=== PATIENT | female | born 1980 | race Caucasian/White ===

== ENCOUNTER 2019-09-09 10:53 | Emergency (ER) | payer MEDICARE, SELFPAY ==
[2019-09-09 11:04] VITALS: BP 140/64; PULSE 97; RESP 20; TEMP 36.7; O2SAT 98
--- NOTE | 2019-09-09 11:16 | ED.GENADULT ---
HPI - General Adult General Chief complaint: Upper Respiratory Infection Stated complaint: cough/fever/runny nose/fatigue Time Seen by Provider: 09/09/19 11:22 Source: patient and RN notes reviewed Mode of arrival: ambulatory Limitations: no limitations History of Present Illness HPI narrative: This is a 39 years old female presents to the office for an evaluation of cough for 7 days. Cough is intermittent worse at times. Associated with sinus congestion, drainage, bilateral ear pressure, and fever up to 100.2.Similar symptoms. She normally smoke about 3 cigarettes a day. However since she has been feeling ill she only can do 1 a day.She has been taking ibuprofen and DayQuil for her symptoms. Related Data Allergies Allergy/AdvReac Type Severity Reaction Status Date / Time Penicillins Allergy Unknown Rash Verified 09/09/19 11:08 Review of Systems Review of Systems: Narrative: CONSTITUTIONAL: Reports fever EYES: Denies visual changes ENT: Reports rhinorrhea, congestion, sore throat, otalgia. CARDIOVASCULAR: Denies chest pain, palpitation RESPIRATORY: Denies dyspnea, wheezing. Reports cough GASTROINTESTINAL: Denies abdominal pain, nausea, vomiting, diarrhea. GENITOURINARY: Denies urinary symptoms SKIN: Denies rash MUSCULOSKELETAL: Denies acute back pain NEUROLOGIC: Denies lightheaded PMFSH Past Medical History Medical History Allergies Anxiety Asthma Depression (~05/2019) Encounter for long-term (current) use of other medications Family history of osteoporosis Headache, migraine History of bipolar disorder (~05/2019) Surgical History Surgical History H/O laparoscopy H/O: History of tonsillectomy Family History Family History Mother , motorcycle accident No problems noted. Grandparent , bladder infection No problems noted. Grandparent No problems noted. Grandparent Cerebrovascular accident Social History Social History Smoking packs per day: 0.5 Smoking cigarettes per day: 10.0 Years smoked: 15 Smoking pack-years: 7.50 Smoking status: Current every day smoker Alcohol intake: current Drinks per week: 2 Substance use: unknown Comments At time of signature, I agree with nursing past medical, surgical, social and family history. There is no relevant family history pertinent to the presenting complaint. Exam Narrative: Exam Narrative: GENERAL: This is a well-nourished, well-developed patient, in no apparent distress. EYES: Sclera clear/white. Vision is grossly intact. EARS: External ears normal, auditory canals clear and without drainage, TMs normal without perforation. Hearing grossly intact. NOSE: External nose normal with no obvious nasal discharge, nares without redness, no rhinorrhea. THROAT: Mucous membranes moist, posterior pharynx erythema and edematous with drainage NECK: Neck supple, non-tender without lymphadenopathy, masses or thyromegaly. CARDIOVASCULAR: Regular rate and rhythm without murmurs, gallops, or rubs. RESPIRATORY: Clear to auscultation, Except lower base noted diminished breath sound.Breath sounds equal bilaterally. No wheezes, rales, or rhonchi. GASTROINTESTINAL: Abdomen soft, non-tender, nondistended. Bowel sounds are active. No hepato-splenomegaly, or palpable masses. No guarding. SKIN: warm, intact with no suspicious lesions or rash, good texture and turgor. NEURO: awake, alert, and oriented to person, place and time. There were no obvious focal neurologic abnormalities. Steady gait [place] Coma Scale Eye Opening: Spontaneous 4 [place] Coma Scale Motor: Obeys Commands 6 Kately[place] Coma Scale Verbal: Oriented 5 Course Vital Signs Vital signs: Vital Signs Temperature 98.0
== END 2019-09-09 11:38 | disposition home or self-care (01) ==
PROVIDERS: Emergency Provider Nurse Practitioner; PCP Family Medicine
DX: J06.9 Acute upper respiratory infection, unspecified (principal); F17.210 Nicotine dependence, cigarettes, uncomplicated; J45.909 Unspecified asthma, uncomplicated
CPT/HCPCS: 99213; G0463

== ENCOUNTER 2019-10-10 17:19 | Emergency (ER) | payer MEDICARE, SELFPAY ==
--- NOTE | ~2019-10-10 | XR_ITS ---
EXAMINATION: XR chest 2V EXAM DATE: 10/10/2019 18:09 INDICATION: Shortness of breath. Wheezing bilaterally. TECHNIQUE: Frontal and lateral projections of the chest obtained and reviewed. Comparison is made to prior examination from 05/22/2019. FINDINGS: The lungs are clear. There are no pleural effusions. The cardiomediastinal silhouette is within normal limits. There is no pneumothorax suspected. The bones and soft tissues are unremarkab le. IMPRESSION: No acute cardiopulmonary findings. Reviewed, dictated and finalized at location A.
[2019-10-10 17:30] VITALS: BP 124/57; PULSE 82; RESP 28; TEMP 36.9; O2SAT 98
--- NOTE | 2019-10-10 17:30 | ED.GENADULT ---
HPI - General Adult General Chief complaint: Shortness of Breath/Dyspnea Stated complaint: shortness of breath Time Seen by Provider: 10/10/19 17:30 Source: patient Mode of arrival: ambulatory Limitations: no limitations History of Present Illness HPI narrative: 39-year-old female patient presents to the [facility] with complaints of shortness of breath. Patient states that she saw Dr. Goff about a week ago via telehealth. Patient states that she had been exposed to what she thought somebody had COVID-19 however the patient was never diagnosed. Dr. Goff gave her a Z-Marcel along with oral steroids and an inhaler and told her to self quarantine and to call him if his her symptoms got worse. Patient states that she finished a Z-Marcel last and states that she noticed that her symptoms were starting to get slightly worse on . Patient noticed that she was getting more short of breath just walking to the bathroom. Patient states that she had been using the inhaler that the doctor gave her and has helped at times. Patient states she also does have a history of mitral valve prolapse and a murmur that she has had since she was a child. Patient denies any chest pain at this time. Patient does have history of bipolar depression and states that her anxiety has gotten worse recently. Patient states that she does take trazodone at night to help her sleep and to help her anxiety. Patient denies actually being tested for COVID-19. Patient denies any fevers that she is aware of. Patient states she did have asthma as a kid but has not had any asthma attacks since she has been an adult. Patient states she has had issues with her asthma in the past because she still is a smoker. Related Data Allergies Allergy/AdvReac Type Severity Reaction Status Date / Time Penicillins Allergy Unknown Rash Verified 09/09/19 11:08 Review of Systems Review of Systems: Narrative: CONSTITUTIONAL: Denies fever, chills, or sweats. EYES: Denies visual changes, redness, or discharge. ENT: Denies rhinorrhea, congestion, sore throat, or otalgia. CARDIOVASCULAR: Denies chest pain, palpitations, or edema. RESPIRATORY: Positive cough with dyspnea. GASTROINTESTINAL: Denies abdominal pain, nausea, vomiting, or diarrhea. GENITOURINARY: Denies dysuria or hematuria. SKIN: Denies rash or itching. MUSCULOSKELETAL: Denies back pain, joint pain, or myalgia. NEUROLOGIC: Denies headache, numbness, or weakness. PSYCHIATRIC: Positive anxiety, denies depression. [facility] Past Medical History Medical History Allergies Anxiety Asthma Depression (~05/2019) Encounter for long-term (current) use of other medications Family history of osteoporosis Headache, migraine History of bipolar disorder (~05/2019) Surgical History Surgical History H/O laparoscopy H/O: History of tonsillectomy Family History Family History Mother , motorcycle accident No problems noted. Grandparent , bladder infection No problems noted. Grandparent No problems noted. Grandparent Cerebrovascular accident Social History Social History Smoking packs per day: 0.5 Smoking cigarettes per day: 10.0 Years smoked: 15 Smoking pack-years: 7.50 Smoking status: Current every day smoker Alcohol intake: current Drinks per week: 2 Substance use: unknown Comments At the time of my signature I agree with nursing past medical history, surgical, social, and family history. There is no relevant family history pertinent to the presenting complaint. Exam Narrative: Exam Narrative: GENERAL: Well-appearing, well-nourished, patient does appear to be slightly anxious and is talking fast with some rapid deb
--- NOTE | 2019-10-10 17:44 | ECG_ITS ---
Measurements Intervals [place] Rate: 73 P: 61 MA: 152 QRS: 34 QRSD: 99 T: 50 QT: 363 QTc: 400 Interpretive Statements SINUS RHYTHM RSR' IN V1 OR V2, CONSIDER RIGHT VENTRICULAR HYPERTROPHY OR RIGHT VCD BASELINE ARTIFACT- II, III, AVL, AVF BORDERLINE ECG Electronically Signed On 10-11-2019 7:13:27 CDT by Igor Millard D.O.
== END 2019-10-10 18:30 | disposition home or self-care (01) ==
PROVIDERS: Emergency Provider Nurse Practitioner Family; PCP Family Medicine
DX: J20.8 Acute bronchitis due to other specified organisms (principal); F41.9 Anxiety disorder, unspecified; J45.21 Mild intermittent asthma with (acute) exacerbation; I45.10 Unspecified right bundle-branch block; F17.210 Nicotine dependence, cigarettes, uncomplicated; F32.9 Major depressive disorder, single episode, unspecified
CPT/HCPCS: 71046; 87081; 87804; 87880; 93005; 99213; G0463

== ENCOUNTER 2020-01-02 09:34 | Emergency (ER) | payer MEDICARE, SELFPAY ==
--- NOTE | 2020-01-02 09:39 | ED.GENADULT ---
HPI - General Adult General Chief complaint: Dental/Oral Stated complaint: tooth pain/dizzy/nausea/diarrhea Time Seen by Provider: 01/02/20 09:55 Source: patient Mode of arrival: ambulatory Limitations: no limitations History of Present Illness HPI narrative: 39-year-old female patient presents to the [facility] with complaints of dental pain for the past 3 days. Patient states the pain is mostly on the right lower oral cavity. Patient does have history of several dental cavities and infections before in the past. Denies any fevers, denies any chest pain or shortness of breath at this time. Related Data Home Medications Medication Instructions Recorded Confirmed trazodone 100 mg PO BID 01/02/20 01/02/20 Allergies Allergy/AdvReac Type Severity Reaction Status Date / Time Penicillins Allergy Unknown Fever Verified 01/02/20 09:57 Review of Systems Review of Systems: Narrative: CONSTITUTIONAL: Denies fever, chills, or sweats. EYES: Denies visual changes, redness, or discharge. ENT: Denies rhinorrhea, congestion, sore throat, or otalgia. Positive right lower dental pain x3 days CARDIOVASCULAR: Denies chest pain, palpitations, or edema. RESPIRATORY: Denies cough or dyspnea. GASTROINTESTINAL: Denies abdominal pain, nausea, vomiting, or diarrhea. GENITOURINARY: Denies dysuria or hematuria. SKIN: Denies rash or itching. MUSCULOSKELETAL: Denies back pain, joint pain, or myalgia. NEUROLOGIC: Denies headache, numbness, or weakness. PSYCHIATRIC: Denies anxiety or depression. PMFSH Social History Social History Smoking packs per day: 0.5 Smoking cigarettes per day: 10.0 Years smoked: 15 Smoking pack-years: 7.50 Smoking status: Current every day smoker Alcohol intake: current Drinks per week: 2 Substance use: unknown Comments At the time of my signature I agree with nursing past medical history, surgical, social, and family history. There is no relevant family history pertinent to the presenting complaint. Exam Narrative: Exam Narrative: GENERAL: Well-appearing, well-nourished, and in no acute distress. HEAD: Normocephalic, atraumatic. EYES: PERRLA and EOMI. ENT: Nares clear, no rhinorrhea or epistaxis. Mucous membranes moist. Patient has a broken tooth to the back right molar with surrounding erythema and slight swelling noted to the inner part of the right cheek. No obvious swelling noted to the outside of the cheek. Patient able tolerate secretions well. NECK: Supple. No lymphadenopathy CHEST: Clear to auscultation. No respiratory distress. HEART: Regular rate and rhythm. No murmur heard. Normal peripheral pulses. ABDOMEN: Soft, nontender, nondistended, normal active bowel sounds. EXTREMITIES: Normal range of motion. No edema. SKIN: Warm, dry, no rash. NEURO: No focal deficits. Alert and oriented x3. Course Vital Signs Vital signs: Vital Signs Temperature 36.9 C 01/02/20 09:42 Pulse Rate 62 01/02/20 09:42 Respiratory Rate 01/02/20 09:42 Blood Pressure 122/73 01/02/20 09:42 Pulse Oximetry 100 01/02/20 09:42 Temperature 36.9 C 01/02/20 09:42 Pulse Rate 62 01/02/20 09:42 Respiratory Rate 01/02/20 09:42 Blood Pressure 122/73 01/02/20 09:42 Pulse Oximetry 100 01/02/20 09:42 Vital signs reviewed. Medical Decision Making Differential Diagnosis Differential Diagnosis: Differential diagnosis: Dental caries, periodontal disease, avulsed tooth, tooth infections, mandibular infection, Eric's angiana, upper tooth infection, dry socket, gingivitis, acute necrotizing ulcerative gingivitis, sialolithiasis. Offered to give patient Toradol shot for her pain since she does appear uncomfortable. Patient is in agreement with this. Discussed with patient that we will have to watch her for about 20 minutes to make sure she does not have a reaction to the Toradol. Discussed with patient we will discharge her home w
[2020-01-02 09:42] VITALS: BP 122/73; PULSE 62; RESP 20; TEMP 36.9; O2SAT 100
[2020-01-02] MEDS: KETOROLAC (*BKC) 60 MG/2 ML VIAL IM (10:06)
== END 2020-01-02 10:30 | disposition home or self-care (01) ==
PROVIDERS: Emergency Provider Nurse Practitioner Family; PCP Family Medicine
DX: K02.9 Dental caries, unspecified (principal); F17.210 Nicotine dependence, cigarettes, uncomplicated; K21.9 Gastro-esophageal reflux disease without esophagitis; F32.9 Major depressive disorder, single episode, unspecified
CPT/HCPCS: 96372; 99213; G0463; J1885

== ENCOUNTER 2020-01-09 17:00 | Emergency (ER) | payer MEDICARE, SELFPAY ==
--- NOTE | ~2020-01-09 | CT_ITS ---
EXAMINATION: CT brain wo con DATE: 01/09/2020 19:37 INDICATION: Headache. Weakness. TECHNIQUE: Computed tomography (CT) of the head was performed without intravenous contrast. The mA wa s adjusted according to patient size. Iterative reconstruction technique was employed. The dose-lengt h product was 605.33 mGy-cm. COMPARISON: None FINDINGS: There is no intracranial hemorrhage, acute infarction, or abnormal intracranial mass lesion . The ventricles are normal in size. The orbits are normal. The paranasal sinuses are clear. The mast oid air cells are normal. IMPRESSION: 1. Normal brain. Reviewed, dictated and finalized at location A. IMPRESSION: 1. Normal brain.
[2020-01-09 17:06] VITALS: BP 138/80; PULSE 76; RESP 20; TEMP 37; O2SAT 100
--- NOTE | 2020-01-09 18:21 | ECG_ITS ---
Measurements Intervals [place] Rate: 53 P: 67 CT: 175 QRS: 34 QRSD: 114 T: 46 QT: 424 QTc: 402 Interpretive Statements SINUS BRADYCARDIA INCOMPLETE RIGHT BUNDLE BRANCH BLOCK BORDERLINE ECG Electronically Signed On 01-09-2020 20:54:58 CDT by Igor Millard D.O.
--- NOTE | 2020-01-09 19:17 | ED.GENADULT ---
HPI - General Adult General Chief complaint: Unspecified Stated complaint: body aches, n/v/d, foster Time Seen by Provider: 01/09/20 18:45 Source: patient History of Present Illness HPI narrative: Patient 39 years old white female, obese, came to the emergency room complaining of nausea, vomiting and diarrhea started 1 week ago. Patient also complaining of dental pain/infection was on amoxicillin without improvement, started on clindamycin today. Currently complaining of general headache, pain in the eyes, face and neck. Patient denies any fever or chills, also denies any abdominal pain, shortness of breath, coughing or chest pain. Patient cannot elaborate on condition, keepS mumbling and holding her face. Related Data Home Medications Medication Instructions Recorded Confirmed levonorgestrel [Mirena] 1 device INTRAUTERINE ONCE 01/02/20 01/08/20 trazodone 100 mg PO BID 01/02/20 01/08/20 Allergies Allergy/AdvReac Type Severity Reaction Status Date / Time Penicillins Allergy Unknown Fever Verified 01/02/20 09:57 Review of Systems Review of Systems: Narrative: CONSTITUTIONAL: Denies fever, chills, or sweats. EYES: Denies visual changes, redness, or discharge. ENT: Denies rhinorrhea, congestion, sore throat, or otalgia. CARDIOVASCULAR: Denies chest pain, palpitations, or edema. RESPIRATORY: Denies cough or dyspnea. GASTROINTESTINAL: No abdominal pain, complains of nausea, vomiting and diarrhea GENITOURINARY: Denies dysuria or hematuria. SKIN: Denies rash or itching. MUSCULOSKELETAL: Denies back pain, joint pain, or myalgia. NEUROLOGIC: Denies headache, numbness, or weakness. PSYCHIATRIC: Denies anxiety or depression. [facility] Past Medical History Medical History Allergies Anxiety Asthma Depression (~05/2019) Encounter for long-term (current) use of other medications Family history of osteoporosis Headache, migraine History of bipolar disorder (~05/2019) Surgical History Surgical History H/O laparoscopy H/O: History of tonsillectomy Family History Family History Mother , motorcycle accident No problems noted. Grandparent , bladder infection No problems noted. Grandparent No problems noted. Grandparent Cerebrovascular accident Social History Social History Smoking packs per day: 0.5 Smoking cigarettes per day: 10.0 Years smoked: 15 Smoking pack-years: 7.50 Smoking status: Current every day smoker Alcohol intake: current Drinks per week: 2 Substance use: unknown Exam Narrative: Exam Narrative: General appearance: Well-developed, well-nourished Skin: Normal color Head: Normocephalic, nontraumatic Eyes: Clear conjunctiva ENT: Oropharynx normal, ears normal, nose normal, widespread dental caries, no abscess, no discharge, no swelling of the face or the gums Neck: Supple, nontender Chest and respiratory: Airway patent, no respiratory distress, no accessory muscle use Heart: Regular rate/rhythm Abdomen: Soft, nontender, no organomegaly, quiet bowel sounds Vascular: Normal peripheral pulses, normal capillary refill. Musculoskeletal: Normal range of motion, nontender back Neurologic: Alert and oriented ?3, [employer] is normal as tested, no gross motor deficit Course Course Emergency Course: Improving Consultations Consultation #1: Patient feeling much better, denying any symptoms, ready to go home. She told me she is scheduled to see a dentist after
[2020-01-09] MEDS: SODIUM CHLORIDE 0.9% IV 1,000 ML 999 ML IV CONT (19:27)
[2020-01-09] MEDS: KETOROLAC 30 MG/ML VIAL (*BKC) IV PUSH (19:27)
--- NOTE | 2020-01-09 19:39 | PC.NURSE ---
pt to imaging via stretcher at this time.
[2020-01-09 19:54] LABS: Basophils Percent Auto 0.3 % (0.2-1.2); Eosinophils Absolute Auto 0.2 K/mm3 (0-0.3); Eosinophils Percent Auto 1.5 % (0-4.4); Hematocrit 40.5 % (37.0-47.0); Hemoglobin 13.6 g/dL (12.0-15.0); Immature Granulocyte Absolute 0.04 K/mm3 (0.00-0.031); Immature Granulocyte Percent A 0.4 % (0-0.5); Lymphocytes Absolute Auto 2.87 K/mm3 (0.9-3.2); Mean Corpuscular HGB Conc 33.6 g/dl (32-36); Mean Corpuscular Hemoglobin 28.1 pg (26-34); Mean Corpuscular Volume 83.7 fl (80-100); Mean Platelet Volume 9.3 fl (7.4-10.4); Monocytes Absolute Auto 0.6 K/mm3 (0.1-0.6); Monocytes Percent Auto 5.4 % (2.6-8.5); Neutrophils Absolute Auto 7.3 K/mm3 (1.3-6.7); Neutrophils Percent Auto 66.4 % (45.5-73.1); Platelet Count Result 193 k/mm3 (150-375); Red Blood Count 4.84 M/mm3 (4.2-5.4); Red Cell Distribution Width 12.7 % (11.5-14.5)
[2020-01-09 20:04] LABS: Alanine Aminotransferase 13 U/L (4-35); Albumin Level 4.2 g/dL (3.5-5.1); Alkaline Phosphatase 55 U/L (38-126); Aspartate Amino Transferase 17 U/L (14-36); Bilirubin,Total 0.3 mg/dL (0.2-1.3); Blood Urea Nitrogen 20 mg/dL (7-17); Calcium 9.1 mg/dL (8.4-10.2); Carbon Dioxide 26 mmol/L (22-30); Chloride 105 mmol/L (98-107); Estimated CRCL calculation 114 ml/min; Estimated Glomerular Filt Rate > 60; Glucose 91 mg/dL (65-105); Lipase 52 U/L (23-300); Sodium 137 mmol/L (137-145)
[2020-01-09 20:09] VITALS: BP 114/59; PULSE 53; RESP 18; O2SAT 100
[2020-01-09 20:30] LABS: Add Urine Microscopic? NO; Appearance Urine Clear (Clear); Bilirubin Urine Negative (Negative); Blood Urine Negative (Negative); Color Urine Yellow (Yellow); Glucose Urine UA Negative (Negative); Ketones Urine Negative (Negative); Leukocyte Esterase Ur Negative LEU/UL (Negative); Nitrate Urine Negative (Negative); Protein Urine Negative (Negative); Specific Grav Ur 1.027 (1.001-1.035); Urobilinogen Urine Negative mg/dL (<2.0)
[2020-01-09 20:48] LABS: Amphetamine Screen Urine Negative (Negative); Barbiturate Screen Urine Negative (Negative); Benzodiazepines Screen Urine Negative (Negative); Cannabinoid Screen Urine Negative (Negative); Cocaine Screen Urine Negative (Negative); Methadone Screen Urine Negative (Negative); Opiate Screen Urine Negative (Negative); Phencyclidine Screen Urine Negative (Negative)
[2020-01-09 21:18] VITALS: BP 132/77; PULSE 80; RESP 18; O2SAT 100
== END 2020-01-09 21:19 | disposition home or self-care (01) ==
PROVIDERS: Emergency Provider Emergency Medicine; PCP Family Medicine
DX: F41.9 Anxiety disorder, unspecified (principal); K52.9 Noninfective gastroenteritis and colitis, unspecified; K08.9 Disorder of teeth and supporting structures, unspecified; F17.210 Nicotine dependence, cigarettes, uncomplicated; F32.9 Major depressive disorder, single episode, unspecified
CPT/HCPCS: 36415; 70450; 80053; 80307; 81003; 81025; 83690; 85025; 93005; 96361; 96374; 99284; J1885; J7030

== ENCOUNTER → 2020-02-29 15:07 | Outpatient (CLI) | payer MEDICARE, SELFPAY ==
--- NOTE | ~2020-02-29 | XR_ITS ---
EXAMINATION: XR lumbar spine 6V w bending DATE: 02/29/2020 16:16 INDICATION: Unspecified fall, initial encounter. TECHNIQUE: 7 views of lumbar spine including flexion and extension views were obtained. COMPARISON: None. FINDINGS: Bone alignment is normal. The spine is hypomobile with flexion and extension. Vertebral bod y heights and intervertebral disc heights are normal. There are endplate osteophytes at multiple leve ls. There is multilevel facet joint osteoarthritis, severe on the right at L4-L5. There is an intraut erine device in expected position. IMPRESSION: 1. Mild lumbar spondylosis. Reviewed, dictated and finalized at location A. IMPRESSION: 1. Mild lumbar spondylosis.
--- NOTE | ~2020-02-29 | XR_ITS ---
EXAMINATION: XR sacrum coccyx min 2V DATE: 02/29/2020 16:18 INDICATION: Unspecified fall, initial encounter. TECHNIQUE: 3 views of the sacrum and coccyx were obtained. COMPARISON: None. FINDINGS: Bone alignment is normal. No fracture. The sacroiliac joints are normal. There is an intrau terine device in expected position. IMPRESSION: 1. No fracture. Reviewed, dictated and finalized at location A. IMPRESSION: 1. No fracture.
--- NOTE | ~2020-02-29 | XR_ITS ---
EXAMINATION: XR hip RT 1V w AP pelvis DATE: 02/29/2020 16:17 INDICATION: Unspecified fall, initial encounter. TECHNIQUE: An anteroposterior view of the pelvis and 2 views of right hip were obtained. COMPARISON: None. FINDINGS: Bone alignment is normal. No fracture. There is mild osteoarthritis of the hips. There is a n intrauterine device in expected position. IMPRESSION: 1. Mild osteoarthritis of the hips. Reviewed, dictated and finalized at location A.
== END ==
PROVIDERS: PCP Family Medicine; Visit Provider Family Medicine
DX: S33.5XXA Sprain of ligaments of lumbar spine, initial encounter (principal); X58.XXXA Exposure to other specified factors, initial encounter; M47.896 Other spondylosis, lumbar region; M16.0 Bilateral primary osteoarthritis of hip
CPT/HCPCS: 72114; 72220; 73501

== ENCOUNTER 2020-11-25 17:51 | Emergency (ER) | payer MEDICARE, SELFPAY ==
[2020-11-25 18:18] VITALS: BP 140/66; PULSE 99; RESP 20; TEMP 37.1; O2SAT 100
[2020-11-25 18:38] LABS: Basophils Percent Auto 0.2 % (0.2-1.2); Eosinophils Absolute Auto 0.1 K/mm3 (0-0.3); Eosinophils Percent Auto 0.4 % (0-4.4); Hematocrit 41.1 % (37.0-47.0); Hemoglobin 13.8 g/dL (12.0-15.0); Immature Granulocyte Absolute 0.11 K/mm3 (0.00-0.031); Immature Granulocyte Percent A 0.5 % (0-0.5); Lymphocytes Absolute Auto 1.51 K/mm3 (0.9-3.2); Lymphocytes Percent Auto 6.9 % (18.3-44.2); Mean Corpuscular HGB Conc 33.6 g/dl (32-36); Mean Corpuscular Hemoglobin 27.9 pg (26-34); Mean Corpuscular Volume 83.2 fl (80-100); Mean Platelet Volume 9.3 fl (7.4-10.4); Monocytes Absolute Auto 1.6 K/mm3 (0.1-0.6); Monocytes Percent Auto 7.1 % (2.6-8.5); Neutrophils Absolute Auto 18.7 K/mm3 (1.3-6.7); Neutrophils Percent Auto 84.9 % (45.5-73.1); Platelet Count Result 198 k/mm3 (150-375); Red Blood Count 4.94 M/mm3 (4.2-5.4); Red Cell Distribution Width 13.8 % (11.5-14.5)
[2020-11-25 18:48] LABS: Alanine Aminotransferase 13 U/L (4-35); Albumin Level 4.6 g/dL (3.5-5.1); Alkaline Phosphatase 72 U/L (38-126); Anion Gap 11 mmol/L (8-16); Aspartate Amino Transferase 17 U/L (14-36); Blood Urea Nitrogen 13 mg/dL (7-17); Calcium 9.9 mg/dL (8.4-10.2); Carbon Dioxide 24 mmol/L (22-30); Chloride 105 mmol/L (98-107); Estimated CRCL calculation 95 ml/min; Estimated Glomerular Filt Rate > 60; Glucose 120 mg/dL (65-105); Lipase 17 U/L (23-300); Potassium 3.8 mmol/L (3.4-5.0); Sodium 140 mmol/L (137-145)
[2020-11-25 19:08] LABS: Add Urine Microscopic? YES; Appearance Urine Cloudy (Clear); Bacteria Urine Trace /hpf; Bilirubin Urine Negative (Negative); Color Urine Amber (Yellow); Glucose Urine UA Negative (Negative); Ketones Urine 2+ mg/dL (Negative); Leukocyte Esterase Ur Negative LEU/UL (Negative); Mucus Urine Heavy /lpf; Nitrate Urine Negative (Negative); Protein Urine 3+ mg/dL (Negative); Squamous Epithelial Cell Urine Many /hpf (Few)
[2020-11-25 19:10] LABS: Blood Urine Negative (Negative); Specific Grav Ur 1.035 (1.001-1.035)
--- NOTE | 2020-11-25 19:58 | PC.NURSE ---
Pt comes to registration and reports You can take me off the list, I'm calling my ride . Pt left without being seen by physician. Triage and blood work obtained.
== END 2020-11-25 21:38 | disposition left against medical advice (07) ==
PROVIDERS: Emergency Provider Emergency Medicine; PCP Family Medicine
DX: H92.03 Otalgia, bilateral (principal)
CPT/HCPCS: 36415; 80053; 81001; 83690; 85025; 87086; 87088; 99199

== ENCOUNTER 2020-12-27 08:41 | Emergency (ER) | payer MEDICARE, OTHER, SELFPAY ==
--- NOTE | ~2020-12-27 | XR_ITS ---
EXAMINATION: XR chest 2V DATE: 12/27/2020 09:15 INDICATION: Shortness of breath and cough. TECHNIQUE: Frontal and lateral views of the chest were obtained. COMPARISON: Chest 2 views 10/10/2019 FINDINGS: The chest demonstrates clear lungs without pneumonia, pleural effusion, or pneumothorax. Th e heart size is normal. IMPRESSION: 1. No acute cardiopulmonary disease. Reviewed, dictated and finalized at location A.
[2020-12-27 08:56] VITALS: BP 137/60; PULSE 73; RESP 16; TEMP 37.1; O2SAT 100
--- NOTE | 2020-12-27 09:16 | ED.URI ---
HPI - URI/Sore Throat General Chief Complaint: Upper Respiratory Infection Stated Complaint: Shortness of breath, congestion, headache Time Seen by Provider: 12/27/20 09:05 Source: patient Mode of arrival: ambulatory Limitations: no limitations History of Present Illness HPI Narrative: Chacha Jean Baptiste is a 40 yo female with a PMH of asthma, bipolar, anxiery, migraine, who [facility] with complaints of cough and sore throat and sinus drainage and developing and Wednesday, cough on Wednesday, shortness of breath started last night. States prescribed inhaler did not help. Related Data Home Medications Medication Instructions Recorded Confirmed levonorgestrel [Mirena] 1 device INTRAUTERINE ONCE 01/02/20 12/27/20 Allergies Allergy/AdvReac Type Severity Reaction Status Date / Time Penicillins Allergy Unknown Fever Verified 12/27/20 08:57 Review of Systems Review of Systems: Narrative: CONSTITUTIONAL: Denies fever, chills, sweats. EYES: Denies visual changes, redness, discharge. ENT: Has rhinorrhea, has congestion, has sore throat, otalgia. CARDIOVASCULAR: Denies chest pain, palpitations, edema. RESPIRATORY: Denies dyspnea, wheezing, has cough GASTROINTESTINAL: Denies abdominal pain, nausea, vomiting, diarrhea. GENITOURINARY: Denies dysuria, hematuria, abnormal discharge SKIN: Denies rash or itching. NEUROLOGIC: Denies numbness, or focal weakness. PSYCHIATRIC: Denies anxiety or depression. [facility] Past Medical History Medical History (Updated 12/27/20 @ 09:33 by Casi Waller CNP) Allergies Anxiety Asthma Depression (~05/2019) Encounter for long-term (current) use of other medications Family history of osteoporosis GERD (gastroesophageal reflux disease) Headache, migraine History of bipolar disorder (~05/2019) Surgical History Surgical History H/O laparoscopy H/O: History of tonsillectomy Family History Family History Mother , motorcycle accident No problems noted. Grandparent , bladder infection No problems noted. Grandparent No problems noted. Grandparent Cerebrovascular accident Social History Social History Smoking packs per day: 0.5 Smoking cigarettes per day: 10.0 Years smoked: 15 Smoking pack-years: 7.50 Smoking status: Current every day smoker Alcohol intake: current Drinks per week: 2 Substance use: unknown Gender identity (if verbalized by the patient): Female Comments At time of signature, I agree with nursing past medical, surgical, social and family history. There is no relevant family history pertinent to the presenting complaint. Exam Narrative: Exam Narrative: GENERAL: This is a well-nourished, well-developed patient, in mild distress. HEAD: normocephalic, atraumatic. EYES: Sclera clear/white. Vision is grossly intact. EARS: External ears normal, auditory canals erythema with fluid behind TM, . Hearing grossly intact. NOSE: External nose normal without nasal discharge, nares without redness, no rhinorrhea. THROAT: Mucous membranes moist, posterior pharynx erythema with no exudate NECK: Neck supple, CARDIOVASCULAR: Regular rate and rhythm without murmurs, gallops, or rubs. RESPIRATORY: Clear to auscultation. Breath sounds equal bilaterally. No wheezes, rales, or rhonchi. GASTROINTESTINAL: Abdomen soft, SKIN: warm, intact with no suspicious lesions or rash, good texture and turgor. NEURO: awake, alert, and oriented to person, place and time. There were no obvious focal neurologic abnormalities. Steady gait EXTREMITIES: Normal range of motion. BACK: Nontender without deformity Course Course Emergency Course: Patient here with shortness of breath cough and sore throat that is evolved since last Wednesday Strep test n
== END 2020-12-27 09:48 | disposition home or self-care (01) ==
PROVIDERS: Emergency Provider Nurse Practitioner; PCP Family Medicine
DX: R06.02 Shortness of breath (principal); J45.20 Mild intermittent asthma, uncomplicated; J06.9 Acute upper respiratory infection, unspecified; F17.210 Nicotine dependence, cigarettes, uncomplicated; F32.9 Major depressive disorder, single episode, unspecified; K21.9 Gastro-esophageal reflux disease without esophagitis
CPT/HCPCS: 71046; 87081; 87147; 87880; 99213; G0463

== ENCOUNTER 2021-02-02 08:52 | Emergency (ER) | payer MEDICARE, OTHER, SELFPAY ==
--- NOTE | 2021-02-02 08:54 | ED.URI ---
HPI - URI/Sore Throat General Stated Complaint: headache cough sneezing loss of appetite Time Seen by Provider: 02/02/21 08:54 Source: patient and RN notes reviewed History of Present Illness HPI Narrative: Patient is a 40-year-old female who presents the urgent care with complaints of loss of appetite, headache, cough, sneezing, wheezing and scratchy throat. Patient states she does have a history of asthma has continued to smoke cigarettes. Patient states her symptoms started 4 days ago and her children are also sick. No one in the home is been tested for Covid and no one in the home has been vaccinated. Patient denies of any fevers, vomiting, diarrhea. States that she has been taking DayQuil, Tylenol and ibuprofen. No other acute complaints. No acute distress noted. Patient aware of the plan of care. Some parts of this dictation were generated by voice recognition software and may contain typographical and/or grammatical inaccuracies. Related Data Home Medications Medication Instructions Recorded Confirmed levonorgestrel [Mirena] 1 device INTRAUTERINE ONCE 01/02/20 02/02/21 Allergies Allergy/AdvReac Type Severity Reaction Status Date / Time Penicillins AdvReac Unknown Fever Verified 02/02/21 09:08 Review of Systems Review of Systems: CONSTITUTIONAL: Denies fever, chills, or sweats. EYES: Denies visual changes, redness, or discharge. ENT: Denies rhinorrhea, congestion. Reports of scratchy throat CARDIOVASCULAR: Denies chest pain, palpitations, or edema. RESPIRATORY: Reports of nonproductive cough with intermittent wheezing GASTROINTESTINAL: Reports of intermittent nausea without abdominal pain vomiting or diarrhea. Reports of slight loss in appetite GENITOURINARY: Denies dysuria or hematuria. SKIN: Denies rash or itching. MUSCULOSKELETAL: Denies back pain, joint pain, or myalgia. NEUROLOGIC: Reports of headache All other systems reviewed are negative, except as documented in HPI. [facility] Past Medical History Medical History (Updated 02/02/21 @ 09:07 by FANTASMA Marley) Allergies Anxiety Asthma Depression (~05/2019) Encounter for long-term (current) use of other medications Family history of osteoporosis GERD (gastroesophageal reflux disease) Headache, migraine History of bipolar disorder (~05/2019) Surgical History Surgical History H/O laparoscopy H/O: History of tonsillectomy Family History Family History Mother , motorcycle accident No problems noted. Grandparent , bladder infection No problems noted. Grandparent No problems noted. Grandparent Cerebrovascular accident Social History Social History Smoking packs per day: 0.5 Smoking cigarettes per day: 10.0 Years smoked: 15 Smoking pack-years: 7.50 Smoking status: Current every day smoker Alcohol intake: current Drinks per week: 2 Substance use: unknown Gender identity (if verbalized by the patient): Female Comments At the time of my signature, I reviewed and agree with the nursing past medical, surgical, social, and family history. There is no relevant family history pertinent to the patient complaint. Exam Narrative: GENERAL: This is a well-nourished, well-developed patient, appears fatigued HEAD: normocephalic, atraumatic. EYES: PERRL. Sclera clear/white. Vision is grossly intact. EARS: External ears normal, auditory canals clear and without drainage, TMs normal without perforation. Hearing grossly intact. NOSE: External nose normal with no obvious nasal discharge, nares without redness, no rhinorrhea. THROAT: Mucous membranes moist, posterior pharynx clear. Mild postnasal drainage NECK: Neck supple, non-tender without lymphadenopathy CARDIOVASCULAR: Regular rate and rhythm without
[2021-02-02 09:01] VITALS: BP 139/81; PULSE 81; RESP 20; TEMP 36.9; O2SAT 100
[2021-02-03 17:31] LABS: SARS-CoV-2 RNA PCR Negative
== END 2021-02-02 09:13 | disposition home or self-care (01) ==
PROVIDERS: Emergency Provider Nurse Practitioner Family; PCP Family Medicine
DX: J06.9 Acute upper respiratory infection, unspecified (principal); Z20.822 Contact with and (suspected) exposure to COVID-19; J45.909 Unspecified asthma, uncomplicated; K21.9 Gastro-esophageal reflux disease without esophagitis
CPT/HCPCS: 87426; 99213; C9803; G0463; U0003; U0005

== ENCOUNTER 2021-04-18 10:45 | Emergency (ER) | payer MEDICARE, SELFPAY ==
--- NOTE | ~2021-04-18 | XR_ITS ---
EXAMINATION: XR chest 2V DATE: 04/18/2021 11:32 INDICATION: Left chest pain. TECHNIQUE: Frontal and lateral views of the chest were obtained. COMPARISON: Chest 2 views 12/27/2020 FINDINGS: The chest demonstrates clear lungs without pneumonia, pleural effusion, or pneumothorax. Th e heart size is normal. IMPRESSION: 1. No acute cardiopulmonary disease. Reviewed, dictated and finalized at location A.
[2021-04-18 10:45] VITALS: BP 145/59; PULSE 83; RESP 22; TEMP 36.3; O2SAT 100
--- NOTE | 2021-04-18 10:58 | ECG_ITS ---
Measurements Intervals [place] Rate: 79 P: 70 NE: 158 QRS: 48 QRSD: 105 T: 51 QT: 407 QTc: 467 Interpretive Statements SINUS RHYTHM INCOMPLETE RIGHT BUNDLE BRANCH BLOCK BASELINE ARTIFACT- I, II, III, AVR, AVL, AVF BORDERLINE ECG Electronically Signed On 04-19-2021 8:42:03 CDT by Igor Millard D.O.
--- NOTE | 2021-04-18 11:00 | ED.CHESTPAIN ---
HPI - Chest Pain General Chief Complaint: Chest Pain Stated Complaint: Chest Pain Time Seen by Provider: 04/18/21 11:02 Source: patient and RN notes reviewed Mode of arrival: ambulatory Limitations: no limitations History of Present Illness HPI narrative: 40-year-old female presents with concern for midsternal chest pain that starts in between her shoulder blades and radiates to the chest. She reports feeling short of breath. She reports smoking 3 cigarettes this morning. She reports she recently had an upper respiratory infection for which she took antibiotics and was coughing a lot, reports the cough has improved. She reports pain is worsened when she touches her chest and does certain movements. She denies any relieving factors. She denies recent fevers, body aches, chills, sweats. Denies any rash, redness, bruising. Denies palpitations. MD complaint: chest pain Related Data Home Medications Medication Instructions Recorded Confirmed levonorgestrel [Mirena] 1 device INTRAUTERINE ONCE 01/02/20 04/18/21 fluticasone propion-salmeterol 2 inh INHALATION BID 04/18/21 04/18/21 [Advair HFA] Allergies Allergy/AdvReac Type Severity Reaction Status Date / Time Penicillins AdvReac Unknown Fever Verified 04/18/21 11:00 Review of Systems Review of Systems: CONSTITUTIONAL: Denies malaise, chills, sweats, or fever. EYES: Denies visual changes, redness, or discharge. ENT: Denies rhinorrhea, congestion, sinus pain, otalgia or sore throat. CARDIOVASCULAR: Reports chest pain. Denies palpitations or edema. RESPIRATORY: Denies cough. Reports dyspnea. GASTROINTESTINAL: Denies abdominal pain, nausea, vomiting, diarrhea, bloody, or mucous stools. SKIN: Denies bruising, redness, rash or itching. MUSCULOSKELETAL: Reports back pain between the shoulder blades. Denies joint pain or myalgia. NEUROLOGIC: Denies numbness, weakness, or headache. PSYCHIATRIC: Reports anxiety All systems reviewed & are unremarkable except as noted in HPI and below PMFSH Past Medical History Medical History (Updated 04/18/21 @ 11:45 by Lisseth Easton NP) Allergies Anxiety Asthma Depression (~05/2019) Encounter for long-term (current) use of other medications Family history of osteoporosis GERD (gastroesophageal reflux disease) Headache, migraine History of bipolar disorder (~05/2019) Surgical History Surgical History H/O laparoscopy H/O: History of tonsillectomy Family History Family History Mother , motorcycle accident No problems noted. Grandparent , bladder infection No problems noted. Grandparent No problems noted. Grandparent Cerebrovascular accident Social History Social History Smoking packs per day: 0.5 Smoking cigarettes per day: 10.0 Years smoked: 15 Smoking pack-years: 7.50 Smoking status: Current every day smoker Alcohol intake: current Drinks per week: 2 Substance use: unknown Gender identity (if verbalized by the patient): Female Comments At time of signature, agree with nursing past medical, surgical, social and family history. There is no relevant family history pertinent to the presenting complaint Exam Narrative: GENERAL: Well-appearing, well-nourished, and in no acute distress. HEAD: Normocephalic, atraumatic. EYES: PERRLA, sclera clear, and EOMI. ENT: Nares clear. Mucous membranes moist. NECK: Supple. No lymphadenopathy. CHEST: No respiratory distress. Clear to auscultation. No bony deformities, no asymmetry. Speaks in full sentences. Reproducible chest pain with sternal rub HEART: Regular rate and rhythm. No murmur heard. Normal peripheral pulses. SKIN: Warm, dry, no visible rash. NEURO: Alert and oriented x3. PSYCH: Appears anxious Course Course Gissel
[2021-04-18] MEDS: MAG HYDROX/AL HYDROX/SIMETH 30 ML UDC PO (11:03)
[2021-04-18] MEDS: KETOROLAC (*BKC) 60 MG/2 ML VIAL IM (11:20)
== END 2021-04-18 11:50 | disposition home or self-care (01) ==
PROVIDERS: Emergency Provider Nurse Practitioner; PCP Family Medicine
DX: R07.9 Chest pain, unspecified (principal); F17.210 Nicotine dependence, cigarettes, uncomplicated; J45.909 Unspecified asthma, uncomplicated; K21.9 Gastro-esophageal reflux disease without esophagitis; F32.A Depression, unspecified
CPT/HCPCS: 71046; 93005; 96372; 99213; A9270; G0463; J1885

== ENCOUNTER 2021-04-24 11:05 | Outpatient (CLI) | payer MEDICARE, SELFPAY ==
[2021-04-24 19:16] LABS: Hematocrit 40.4 % (37.0-47.0); Hemoglobin 12.8 g/dL (12.0-15.0); Mean Corpuscular HGB Conc 31.7 g/dl (32-36); Mean Corpuscular Hemoglobin 28.6 pg (26-34); Mean Corpuscular Volume 90.4 fl (80-100); Mean Platelet Volume 9.6 fl (7.4-10.4); Platelet Count Result 240 k/mm3 (150-375); Red Blood Count 4.47 M/mm3 (4.2-5.4); Red Cell Distribution Width 13.5 % (11.5-14.5); White Blood Count 11.6 K/mm3 (4.5-10.0)
[2021-04-24 22:18] LABS: Alanine Aminotransferase 15 U/L (4-35); Albumin Level 4.4 g/dL (3.5-5.1); Alkaline Phosphatase 59 U/L (38-126); Anion Gap 9 mmol/L (8-16); Aspartate Amino Transferase 16 U/L (14-36); Bilirubin,Total 0.5 mg/dL (0.2-1.3); Blood Urea Nitrogen 10 mg/dL (7-17); Calcium 9.7 mg/dL (8.4-10.2); Carbon Dioxide 23 mmol/L (22-30); Chloride 105 mmol/L (98-107); Estimated Glomerular Filt Rate > 60; Glucose 96 mg/dL (65-110); Potassium 4.3 mmol/L (3.4-5.0); Sodium 137 mmol/L (137-145)
[2021-04-24 23:04] LABS: Hemoglobin A1C 5.2 % (<5.7)
== END 2021-04-24 11:06 | disposition home or self-care (01) ==
PROVIDERS: PCP Family Medicine; Visit Provider Family Medicine
DX: J45.909 Unspecified asthma, uncomplicated (principal); M79.12 Myalgia of auxiliary muscles, head and neck; R53.1 Weakness; F31.81 Bipolar II disorder; Z79.899 Other long term (current) drug therapy
CPT/HCPCS: 36415; 80053; 82607; 83036; 84443; 85027

== ENCOUNTER 2021-06-17 07:52 | Outpatient (CLI) | payer MEDICARE, OTHER, SELFPAY ==
--- NOTE | 2021-07-07 16:48 | WPDSLEEPSTUD ---
Sleep Study Date of Study: 06/17/21 <Lyndsey Brody DO - Last Filed: 07/08/21 12:49> Ordering Provider: Pravin Lucas MD <Lyndsey Brody DO - Last Filed: 07/08/21 12:49> Interpreting Physician: Lyndsey Brody DO <Lyndsey Brody DO - Last Filed: 07/08/21 12:49> Sleep Study Type: Polysomnogram <Lyndsey Brody DO - Last Filed: 07/08/21 12:49> Height: 1.6 m <Lyndsey Brody DO - Last Filed: 07/08/21 12:49> Weight: 117.934 kg <Lyndsey Brody DO - Last Filed: 07/08/21 12:49> Body Mass Index: 46.0 <Lyndsey Brody DO - Last Filed: 07/08/21 12:49> Neck Circumference (inches): 16 <Lyndsey Brody DO - Last Filed: 07/08/21 12:49> [place]: 7 <Lyndsey Brody DO - Last Filed: 07/08/21 12:49> Reason for Sleep Study Unrefreshing sleep and daytime hypersomnia <Lyndsey Brody DO - Last Filed: 07/08/21 12:49> Sleep History The patient is a 41 y/o female that Had a sleep study ordered by her primary care due to difficulty falling asleep and maintaining sleep. The patient states that she had a sleep study in the past and was prescribed CPAP. The patient states that she frequently awakens from sleep short of breath. She frequently awakens at night with heartburn, belching or cough. She occasionally snores and it is rarely lab done of that others complaint. She constantly has trouble sleeping when she has a cold. She frequently wakes up gasping for air throughout the night. She frequently has breathing problems at night observed by others. She occasionally sweats excessively at night. She occasionally notices heart palpitations or irregular heartbeats during the night. She occasionally falls asleep during the day but never while driving. She occasionally experiences loss of muscle tone when extremely emotional. She frequently has trouble at school or work due to sleepiness. She occasionally feels unable to move when waking up or falling asleep. She rarely experiences vivid dream like seen upon awakening or falling asleep. She frequently feels afraid of going to sleep. She rarely has nightmares. She frequently has thoughts racing through her mind. She frequently feels sad, depressed and anxious. She frequently notices parts of her body jerk. She occasionally kicks during the night. She frequently has crawling aching feelings in her legs. She occasionally has leg pain during the night. She rarely brings her teeth during sleep but frequently awakens with morning jawbone pain. She is frequently bothered by pain during the day and frequently awakened by pain during the night. She constantly wakes up feeling stiff in the morning with sore and achy muscles. She constantly wakes up with pain in the neck, spine and other joints. She goes to bed between 8 and 9:30 p.m. on both weekdays and weekends. It takes her 1.5 hours to fall asleep after taking her nighttime medicines. She wakes up 1-2 times throughout the night. When she awakened, she will lay there, go to the restroom and try to go back to sleep. If she cannot fall asleep, she will get up. She wakes up between 5-7 a.m. on the weekdays and between 7-9 a.m. on the weekends. She typically gets between 5 and 9 hours of sleep per night. She will stay in bed anywhere from 30-90 minutes after waking up in the morning. She currently lives with her and 3 children. She does not consume any caffeinated beverages within 2 hours of bedtime. She does not engage in physical exercise before bedtime. She will occasionally read and watch television before falling asleep. She does not take naps in the afternoon or the evening. She currently smokes half a pack of cigarettes per day. She drinks 2 caffeinated beverages per day. She will drink alcohol once per month. She denies recreational drug use. <Lyndsey Brody, - Last Filed: 07/08/21 12:49> [facility] Past Medical Hi
[2021-07-08 12:47] VITALS: BMI 46.0
== END 2021-06-18 07:48 | disposition home or self-care (01) ==
LOC: ANHCSM 07:53
PROVIDERS: PCP Family Medicine; Visit Provider Family Medicine
DX: G47.9 Sleep disorder, unspecified (principal)
CPT/HCPCS: 95810

== ENCOUNTER 2022-01-28 14:44 | Outpatient (CLI) | payer MEDICARE, OTHER, SELFPAY ==
--- NOTE | ~2022-01-28 | XR_ITS ---
EXAMINATION: XR abdomen obstructive series DATE: 01/28/2022 15:14 INDICATION: Gastroesophageal reflux disease without esophagitis. TECHNIQUE: Upright and supine views of the abdomen were obtained. COMPARISON: None. FINDINGS: There are no dilated loops of bowel. There is a small volume of stool in the colon. There i s an intrauterine device in expected position. Portions of the diaphragm are excluded on the upright view. No free intraperitoneal gas. IMPRESSION: 1. Normal bowel gas pattern. Reviewed, dictated and finalized at location A.
--- NOTE | ~2022-01-28 | XR_ITS ---
XR lumbar spine 2-3V DATE: 01/28/2022 15:14 INDICATION: Low back pain, abdominal pain and diarrhea for one month TECHNIQUE: AP, lateral, coned lateral lumbosacral views COMPARISON: 02/29/2020 lumbar spine FINDINGS: Normal alignment of the lumbar spine. No fracture or bone destruction. The lumbar pedicles are intact. There is degenerative change at the apophyseal joints, with slight grade 1 anterolisthesi s at L4-5. Mild degenerative disc disease at L1-2 and L2-3 and L3-4. L4-5 and L5-S1 interspaces are well preserv ed. Normal alignment at the sacroiliac joints. IMPRESSION: Mild degenerative disease at L1-2 through L3-4 Degenerative changes apophyseal joints with minimal anterolisthesis at L4-5 Reviewed, dictated and finalized at location B.
[2022-01-28 20:44] LABS: Appearance Urine Slightly Cloudy (Clear); Bilirubin Urine Negative (Negative); Glucose Urine UA Negative (Negative); Ketones Urine Negative (Negative); Leukocyte Esterase Ur Trace LEU/UL (NEGATIVE); Nitrate Urine Negative (Negative); Protein Urine Negative (Negative); Specific Grav Ur 1.015 (1.001-1.035); Urobilinogen Urine 0.2 mg/dL (<2.0)
[2022-01-28 21:00] LABS: Bacteria Urine 2+ /hpf; Mucus Urine Rare /lpf; RBC Urine 0-2 /hpf (0-2); Squamous Epithelial Cell Urine Many /hpf (Few); WBC Urine 0-3 /hpf (0-3)
[2022-01-28 21:01] LABS: Add Urine Microscopic? YES; Blood Urine Trace-Intact (Negative); Color Urine Light Yellow (Yellow)
[2022-01-28 21:01] LABS: Basophils Absolute Auto 0.1 K/mm3 (0.0-0.1); Basophils Percent Auto 0.5 % (0.2-1.2); Eosinophils Absolute Auto 0.3 K/mm3 (0-0.3); Eosinophils Percent Auto 2.9 % (0-4.4); Hematocrit 41.7 % (37.0-47.0); Hemoglobin 13.8 g/dL (12.0-15.0); Immature Granulocyte Absolute 0.02 K/mm3 (0.00-0.031); Immature Granulocyte Percent A 0.2 % (0-0.5); Lymphocytes Absolute Auto 2.39 K/mm3 (0.9-3.2); Lymphocytes Percent Auto 24.1 % (18.3-44.2); Mean Corpuscular HGB Conc 33.1 g/dl (32-36); Mean Corpuscular Hemoglobin 27.9 pg (26-34); Mean Corpuscular Volume 84.4 fl (80-100); Mean Platelet Volume 9.9 fl (7.4-10.4); Monocytes Absolute Auto 0.6 K/mm3 (0.1-0.6); Monocytes Percent Auto 5.7 % (2.6-8.5); Neutrophils Absolute Auto 6.6 K/mm3 (1.3-6.7); Neutrophils Percent Auto 66.6 % (45.5-73.1); Platelet Count Result 237 k/mm3 (150-375); Red Blood Count 4.94 M/mm3 (4.2-5.4); Red Cell Distribution Width 12.9 % (11.5-14.5); White Blood Count 9.9 K/mm3 (4.5-10.0)
[2022-01-28 21:52] LABS: Lipase 38 U/L (23-300)
== END 2022-01-28 14:45 | disposition home or self-care (01) ==
LOC: ANHBWCLAB 14:47
PROVIDERS: PCP Family Medicine; Visit Provider Family Medicine
DX: R82.998 Other abnormal findings in urine (principal); R51.9 Headache, unspecified; S33.5XXA Sprain of ligaments of lumbar spine, initial encounter; K21.9 Gastro-esophageal reflux disease without esophagitis; R14.0 Abdominal distension (gaseous); X58.XXXA Exposure to other specified factors, initial encounter
CPT/HCPCS: 36415; 72100; 74019; 81001; 83690; 85025

== ENCOUNTER 2022-05-04 13:21 | Outpatient (CLI) | payer MEDICARE, OTHER, SELFPAY ==
[2022-05-04 19:39] LABS: Appearance Urine Clear (Clear); Bilirubin Urine Negative (Negative); Blood Urine Negative (Negative); Color Urine Yellow (Yellow); Glucose Urine UA Negative (Negative); Ketones Urine Negative (Negative); Leukocyte Esterase Ur Negative LEU/UL (Negative); Nitrate Urine Positive (Negative); Protein Urine Negative (Negative); Urobilinogen Urine 0.2 mg/dL (<2.0)
[2022-05-04 19:46] LABS: Bacteria Urine Trace /hpf; RBC Urine 0-2 /hpf (0-2); Squamous Epithelial Cell Urine Moderate /hpf (Few); WBC Urine 0-3 /hpf
[2022-05-04 19:57] LABS: Add Urine Microscopic? YES
== END 2022-05-04 13:22 | disposition home or self-care (01) ==
LOC: ANHBWCLAB 13:22
PROVIDERS: PCP Family Medicine; Visit Provider Family Medicine
DX: R39.9 Unspecified symptoms and signs involving the genitourinary system (principal); N39.0 Urinary tract infection, site not specified
CPT/HCPCS: 81001

== ENCOUNTER 2022-09-10 09:50 | Outpatient (CLI) | payer MEDICARE, SELFPAY ==
[2022-09-10 19:47] LABS: Alanine Aminotransferase 30 U/L (6-35); Albumin Level 4.7 g/dL (3.5-5.1); Alkaline Phosphatase 68 U/L (38-126); Anion Gap 8 mmol/L (8-16); Aspartate Amino Transferase 61 U/L (14-36); Blood Urea Nitrogen 11 mg/dL (7-17); Calcium 9.1 mg/dL (8.4-10.2); Carbon Dioxide 26 mmol/L (22-30); Chloride 105 mmol/L (98-107); Cholesterol 237 mg/dL (0-200); Estimated Glomerular Filt Rate > 60; Glucose 90 mg/dL (65-110); HDL Direct 28 mg/dL; Potassium 3.5 mmol/L (3.4-5.0); Sodium 139 mmol/L (137-145); Triglycerides 251 mg/dL (<150)
[2022-09-10 19:59] LABS: LDL Cholesterol Direct 141 mg/dL
[2022-09-10 20:05] LABS: Appearance Urine Turbid (Clear); Bilirubin Urine 2+ (Negative); Blood Urine Trace-intact (Negative); Color Urine Red (Yellow); Glucose Urine UA 1+ mg/dL (Negative); Ketones Urine 2+ mg/dL (Negative); Leukocyte Esterase Ur 3+ LEU/UL (Negative); Nitrate Urine Positive (Negative); Protein Urine 3+ mg/dL (Negative)
[2022-09-10 20:08] LABS: Urobilinogen Urine >=8.0 mg/dL (<2.0)
[2022-09-10 20:09] LABS: Add Urine Microscopic? YES; WBC Urine 21-50 /hpf (0-3)
[2022-09-10 20:10] LABS: Bacteria Urine 2+ /hpf; Squamous Epithelial Cell Urine Few /hpf (Few)
== END 2022-09-10 09:51 | disposition home or self-care (01) ==
PROVIDERS: PCP Family Medicine; Visit Provider Family Medicine
DX: R31.9 Hematuria, unspecified (principal); F31.81 Bipolar II disorder; F41.9 Anxiety disorder, unspecified; G43.909 Migraine, unspecified, not intractable, without status migrainosus; J45.991 Cough variant asthma; K21.9 Gastro-esophageal reflux disease without esophagitis; M54.50 Low back pain, unspecified; R14.0 Abdominal distension (gaseous); Z79.899 Other long term (current) drug therapy
CPT/HCPCS: 36415; 80053; 80061; 81001

== ENCOUNTER 2022-09-15 11:57 | Outpatient (CLI) | payer MEDICARE, SELFPAY ==
[2022-09-18 00:40] LABS: H pylori Ag Stool Not Detected (Not Detected)
== END 2022-09-15 11:58 | disposition home or self-care (01) ==
PROVIDERS: PCP Family Medicine; Visit Provider Family Medicine
DX: K21.9 Gastro-esophageal reflux disease without esophagitis (principal)
CPT/HCPCS: 87338

== ENCOUNTER 2023-01-12 11:21 | Emergency (ER) | payer OTHER, MEDICARE, SELFPAY ==
--- NOTE | ~2023-01-12 | CT_ITS ---
Non-contrast Head CT History: Headache COMPARISON: 01/09/2020 Technique: Axial non-contrast imaging of the brain was performed. Dose reduction technique was used on this scan by utilizing automated exposure control and iterative reconstruction technique. The dose -length product (DLP) was 605.33 mGy-cm. Findings: There is no evidence of intracranial hemorrhage, mass lesion, or acute infarct. Brain par enchyma appears normal. The ventricles and subarachnoid spaces are normal in size. The calvarium ap pears normal. The visualized paranasal sinuses and mastoid air cells are clear. Impression: No significant abnormality seen. Reviewed, dictated and finalized at [facility]. Impression: No significant abnormality seen.
[2023-01-12 11:29] VITALS: BP 134/78; PULSE 79; RESP 20; TEMP 36.4; O2SAT 100
[2023-01-12] MEDS: diphenhydrAMINE HCl CAP 25 MG CAPSULE PO (12:07)
[2023-01-12] MEDS: METOCLOPRAMIDE HCL INJ 10 MG/2 ML VIAL IM (12:07)
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
[2023-01-12 13:09] VITALS: BP 102/78; PULSE 86; RESP 15; O2SAT 98
== END 2023-01-12 13:09 | disposition home or self-care (01) ==
LOC: ANHED 13:02
PROVIDERS: Emergency Provider Emergency Medicine; PCP Family Medicine
DX: S09.90XA Unspecified injury of head, initial encounter (principal); R51.9 Headache, unspecified; J45.909 Unspecified asthma, uncomplicated; K21.9 Gastro-esophageal reflux disease without esophagitis; F17.210 Nicotine dependence, cigarettes, uncomplicated; V49.40XA Driver injured in collision with unspecified motor vehicles in traffic accident, initial encounter
CPT/HCPCS: 70450; 96372; 99284; A9270; J2765

== ENCOUNTER 2023-04-13 13:09 | Outpatient (CLI) | payer MEDICARE, MEDICAID, SELFPAY ==
--- NOTE | ~2023-04-13 | XR_ITS ---
EXAMINATION: XR mandible min 4V DATE: 04/13/2023 13:36 INDICATION: Other specified disorders of teeth. TECHNIQUE: 5 views of the mandible were obtained. COMPARISON: Head CT 01/12/2023 FINDINGS: Bone alignment is normal. No fracture. The temporomandibular joint spaces are normal. IMPRESSION: 1. Normal mandible. Reviewed, dictated and finalized at location E. IMPRESSION: 1. Normal mandible.
== END 2023-04-13 13:10 | disposition home or self-care (01) ==
LOC: ANHBWCIMG 13:10
PROVIDERS: PCP Nurse Practitioner Adult Health; Visit Provider Nurse Practitioner Adult Health
DX: K08.89 Other specified disorders of teeth and supporting structures (principal)
CPT/HCPCS: 70110

== ENCOUNTER 2024-01-23 15:28 | Emergency (ER) | payer MEDICARE, OTHER, MEDICAID, SELFPAY ==
[2024-01-23 15:40] VITALS: BP 140/65; PULSE 75; RESP 20; TEMP 37; O2SAT 98
[2024-01-23 15:49] VITALS: BP 140/65; PULSE 75; RESP 20; TEMP 37; O2SAT 98
--- NOTE | 2024-01-23 15:49 | ED.SKABFB ---
HPI - Skin/Abscess/Foreign Bdy General Chief complaint: Extremity Injury, Upper Stated complaint: right hand thumb injury History of Present Illness HPI narrative: Patient presents with tenderness swelling and edema to the right thumb the cuticle area. No drainage noted. Patient states she injured the thumb 2 weeks ago and presents today with concerns for infection to the nail bed area Related Data Home Medications Medication Instructions Recorded Confirmed levonorgestrel 21 mcg/24 hr (up to 1 device intrauterine ONCE 01/02/20 01/23/24 8 years) 52 mg intrauterine device (Mirena) trazodone 100 mg tablet 100 mg PO BID 01/23/24 01/23/24 Allergies Allergy/AdvReac Type Severity Reaction Status Date / Time Penicillins AdvReac Unknown Fever Verified 01/23/24 15:31 Review of Systems Review of Systems: CONSTITUTIONAL: Denies fever, chills, or sweats. EYES: Denies visual changes, redness, or discharge. ENT: Denies rhinorrhea, congestion, sore throat, or otalgia. CARDIOVASCULAR: Denies chest pain, palpitations, or edema. RESPIRATORY: Denies cough or dyspnea. GASTROINTESTINAL: Denies abdominal pain, nausea, vomiting, or diarrhea. GENITOURINARY: Denies dysuria or hematuria. SKIN: Denies rash or itching. MUSCULOSKELETAL: Denies back pain, joint pain, or myalgia. NEUROLOGIC: Denies headache, numbness, or weakness. PSYCHIATRIC: Denies anxiety or depression. [facility] Past Medical History Medical History Allergies Anxiety Asthma Depression (~05/2019) Encounter for long-term (current) use of other medications Family history of osteoporosis GERD (gastroesophageal reflux disease) Headache, migraine History of bipolar disorder (~05/2019) Surgical History Surgical History H/O laparoscopy H/O: History of tonsillectomy Family History Family History Mother , motorcycle accident No problems noted. Grandparent , bladder infection No problems noted. Grandparent No problems noted. Grandparent Cerebrovascular accident Social History Social History (Updated 04/13/23 @ 13:06 by Ginna Stoner MA) Smoking packs per day: 0.5 Smoking cigarettes per day: 10.0 Years smoked: 15 Smoking pack-years: 7.50 Smoking status: Current every day smoker Alcohol intake: current Drinks per week: 2 Substance use: unknown Lack of Transportation: No Lack of Food: Sometimes True Current Housing: I Have Housing Concerned About Future Housing: YES Difficulty Paying Gas/Electric Bills: YES Difficulty Paying for Meds: YES Currently Unemployed: No Education: High School Diploma/GED Difficulty w/ Childcare or Family Care: YES Gender identity (if verbalized by the patient): Female Comments At time of signature, agree with nursing past medical, surgical, social and family history. There is no relevant family history pertinent to the presenting complaint Exam Narrative: GENERAL: Well-appearing, well-nourished, and in no acute distress. HEAD: Normocephalic, atraumatic. EYES: PERRLA and EOMI. ENT: Nares clear, no rhinorrhea or epistaxis. Mucous membranes moist. NECK: Supple. CHEST: Clear to auscultation. No respiratory distress. HEART: Regular rate and rhythm. No murmur heard. Normal peripheral pulses. ABDOMEN: Soft, nontender, nondistended, normal active bowel sounds. EXTREMITIES: Normal range of motion. No edema. Paronychia right thumb SWELLING AND REDNESS AND FLUCTUANCE CONSISTENT WITH PARONYCHIA. NORMAL CAP REFILL. NORMAL SENSATION OF DISTAL FINGER. NORMAL 2 POINT dISCRIMINATION. NORMAL MOVEMENT OF FINGER AT PIP, DIP, MCP. NORMAL HAND EXAM. NO STREAKING OR REDNESS INTO HAND. SKIN: Warm, dry, no rash. NEURO: No focal deficits. Alert and oriented x3. Dora Coma Scale Eye Opening: Sp
== END 2024-01-23 15:55 | disposition home or self-care (01) ==
PROVIDERS: Emergency Provider Nurse Practitioner Family; PCP Family Medicine
DX: L03.011 Cellulitis of right finger (principal); F17.210 Nicotine dependence, cigarettes, uncomplicated; J45.909 Unspecified asthma, uncomplicated; K21.9 Gastro-esophageal reflux disease without esophagitis; F32.A Depression, unspecified
CPT/HCPCS: 99213; G0463

== ENCOUNTER 2024-04-11 11:11 | Outpatient (CLI) | payer MEDICARE, MEDICAID, SELFPAY ==
[2024-04-11 12:14] LABS: Hematocrit 39.6 % (37.0-47.0); Hemoglobin 12.9 g/dL (12.0-15.0)
== END 2024-04-11 11:12 | disposition home or self-care (01) ==
LOC: ANHSURGERY 11:17
PROVIDERS: PCP Family Medicine; Visit Provider Obstetrics & Gynecology
DX: T83.39XA Other mechanical complication of intrauterine contraceptive device, initial encounter (principal)
CPT/HCPCS: 36415; 85014; 85018; 86850; 86900; 86901

== ENCOUNTER 2024-04-14 00:10 | Day surgery (SDC) | payer MEDICARE, MEDICAID, SELFPAY ==
[2024-04-04 12:27] VITALS: BMI 42.3
--- NOTE | 2024-04-04 12:28 | PC.NURSE ---
Report to the Outpatient Waiting Room, entrance under the green pavilion located off [facility], at time _0600_ on date _[id number]_. Planned Procedure Time: _0730_.? Time changes happen often and if your time is changed the preop area will call you the afternoon before. - You and your visitor will be asked to self-screen and do not enter if you have any COVID symptoms. Please call surgeon if you need to reschedule. - A mask is optional within the hospital at this time. Patients may have clear liquids (water, carbonated beverages, clear teas, apple juice) until 3 hours prior to surgery with a maximum of 20 ounces. - No food from midnight until time of surgery and no smoking Take only the following medications with a SIP of water on the morning of surgery: ___Inhaler if needed DO NOT STOP ANY OF YOUR OTHER PRESCRIPTION MEDICATIONS PRIOR TO SURGERY EXCEPT THE FOLLOWING Medications to discontinue per physician ___None Please no make-up, nail macedonian, hairspray, perfume, deodorant, or body powder the day of surgery.? No jewelry (including any body piercings) or valuables the day of surgery, leave them at home.? Please take a shower or bath the night before, or the morning of, surgery with an antibacterial soap.? Wear comfortable, loose fitting clothing.? - Jewelry must be removed prior to entering the operating room.? Rings and piercings that are not removed may be cut off. - The hospital will not accept responsibility for valuables.? - Please leave all valuables, including medications, at home the day of surgery. If you are going home after surgery, a licensed recycle driver must drive you home.? - NO public transportation without another adult if you receive anesthesia. - We recommend that an adult stay with you for 24 hours following discharge. - We also recommend that you do not drive, make important decision, drink alcoholic beverages, or take any drugs that were not prescribed by your health care provider for at least 24 hours after your discharge time. Follow any additional instructions given to you from your surgeon. Telephone instructions given to __Kittie__and asked if any additional questions and then verbalized understanding. Patient advised to call surgeon office or pre surgery nurse liaison [phone] if any additional questions.
--- NOTE | 2024-04-12 12:33 | PM.IMHP ---
H&P: HPI History of Present Illness Date/Time: 04/12/24 12:33 Chief Complaint: retained iud and pelvic pain Narrative: Patient is admitted for laparoscopy secondary to pelvic pain hysteroscopy and removal of IUD. She has a known fibroid. Risks and benefits reviewed [facility] Past Medical History Medical History Allergies Anxiety Asthma Depression (~05/2019) Encounter for long-term (current) use of other medications Family history of osteoporosis GERD (gastroesophageal reflux disease) Headache, migraine History of bipolar disorder (~05/2019) Surgical History Surgical History H/O laparoscopy H/O: History of tonsillectomy Family History Family History Mother , motorcycle accident No problems noted. Grandparent , bladder infection No problems noted. Grandparent No problems noted. Grandparent Cerebrovascular accident Social History Social History Smoking packs per day: 0.5 Smoking cigarettes per day: 10.0 Years smoked: 15 Smoking pack-years: 7.50 Smoking status: Current every day smoker Tobacco type: cigarettes Alcohol intake: current Drinks per week: 2 Substance use: unknown Substance use type: marijuana Lack of Transportation: No Lack of Food: Sometimes True Current Housing: I Have Housing Concerned About Future Housing: YES Difficulty Paying Gas/Electric Bills: YES Difficulty Paying for Meds: YES Currently Unemployed: No Education: High School Diploma/GED Difficulty w/ Childcare or Family Care: YES Living arrangements: with family Gender identity (if verbalized by the patient): Female Spiritual care concerns: No Meds Home Medications and Allergies Home Medications Medication Instructions Recorded Confirmed Type levonorgestrel 21 mcg/24 hr (up to 1 device intrauterine ONCE 01/02/20 04/04/24 History 8 years) 52 mg intrauterine device (Mirena) albuterol sulfate 90 mcg/actuation 2 puff inhalation QID PRN 03/24/21 04/04/24 Rx aerosol inhaler shortness of breath or wheezing #8 grams quetiapine 50 mg tablet 50 mg PO QHS #90 tabs 02/04/22 04/04/24 Rx pantoprazole 20 mg tablet,delayed 20 mg PO QAM #90 tabs 11/23/23 04/04/24 Rx release cyclobenzaprine 10 mg tablet 10 mg PO TID PRN Spasms 04/04/24 04/04/24 History duloxetine 30 mg capsule,delayed 30 mg PO HS 04/04/24 04/04/24 History release nitrofurantoin 100 mg PO BID 04/04/24 04/04/24 History monohydrate/macrocrystals 100 mg capsule Allergies Allergy/AdvReac Type Severity Reaction Status Date / Time Penicillins AdvReac Unknown Fever Verified 04/04/24 12:14 Exam Const: General: cooperative, healthy appearing and comfortable Nutritional Appearance: average body habitus Orientation/consciousness: oriented to person, oriented to place and oriented to time HENMT: Head: normal to inspection Resp: Effort & Inspection: normal respiratory effort Cardio: Rate: regular rate Rhythm: regular rhythm Heart sounds: S1 normal heart sound present and S2 normal heart sound present GI: Inspection: normal to inspection : External Female Exam: normal external appearance Speculum Exam - Vagina: normal appearance of the vagina Speculum Exam - Cervix: normal appearance of the cervix Bimanual exam- vagina & uterus: enlarged and Uterine tenderness Bimanual Exam- Adnexa, other: normal adnexae Assessment and Plan Assessment and plan (1) IUD strings lost: Code(s): T83.32XA - Displacement of intrauterine contraceptive device, initial encounter Status: Acute (2) Pelvic pain: Code(s): R10.2 - Pelvic and perineal pain Status: Acute Assessment and Plan: Proc
--- NOTE | 2024-04-13 16:47 | WPDANESEPP ---
Anes - Eval Pre Procedure Procedure: Operation Date: 04/14/24 07:30 Proposed Procedures p Diagnostic Laparoscopy, - Rigo Tidwell MD s Hysteroscopy Dilation and Curettage with Intrauterine Device Removal - Rigo Tidwell MD Date/Time: 04/13/24 16:47 Pre Op Diagnosis: pelvic pain, retained iud Patient Data Age: 43 Gender: F Height: 1.6 m Weight: 108.2 kg Allergies Allergy/AdvReac Type Severity Reaction Status Date / Time Penicillins AdvReac Unknown Fever Verified 04/04/24 12:14 Home Medications Medication Instructions Recorded Confirmed Type levonorgestrel 21 mcg/24 hr (up to 1 device intrauterine ONCE 01/02/20 04/04/24 History 8 years) 52 mg intrauterine device (Mirena) albuterol sulfate 90 mcg/actuation 2 puff inhalation QID PRN 03/24/21 04/04/24 Rx aerosol inhaler shortness of breath or wheezing #8 grams quetiapine 50 mg tablet 50 mg PO QHS #90 tabs 02/04/22 04/04/24 Rx pantoprazole 20 mg tablet,delayed 20 mg PO QAM #90 tabs 11/23/23 04/04/24 Rx release cyclobenzaprine 10 mg tablet 10 mg PO TID PRN Spasms 04/04/24 04/04/24 History duloxetine 30 mg capsule,delayed 30 mg PO HS 04/04/24 04/04/24 History release nitrofurantoin 100 mg PO BID 04/04/24 04/04/24 History monohydrate/macrocrystals 100 mg capsule Patient hx anesthesia problems: none Family hx anesthesia problems: none Results Review: All pre-operative results and documents have been reviewed as part of the pre-operative evaluation. [facility] Past Medical History Medical History Allergies Anxiety Asthma Bipolar 2 disorder Depression (~05/2019) Encounter for long-term (current) use of other medications Family history of osteoporosis Fracture, tooth GERD (gastroesophageal reflux disease) GERD (gastroesophageal reflux disease) Headache, migraine History of bipolar disorder (~05/2019) Hx of sleep apnea Lumbago Marijuana abuse Migraine Schizoaffective disorder Smoker Surgical History Surgical History H/O laparoscopy H/O: History of tonsillectomy Family History Family History Mother , motorcycle accident No problems noted. Grandparent , bladder infection No problems noted. Grandparent No problems noted. Grandparent Cerebrovascular accident Social History Social History Smoking packs per day: 0.5 Smoking cigarettes per day: 10.0 Years smoked: 15 Smoking pack-years: 7.50 Smoking status: Current every day smoker Tobacco type: cigarettes Alcohol intake: current Drinks per week: 2 Substance use: unknown Substance use type: marijuana Lack of Transportation: No Lack of Food: Sometimes True Current Housing: I Have Housing Concerned About Future Housing: YES Difficulty Paying Gas/Electric Bills: YES Difficulty Paying for Meds: YES Currently Unemployed: No Education: High School Diploma/GED Difficulty w/ Childcare or Family Care: YES Living arrangements: with family Gender identity (if verbalized by the patient): Female Spiritual care concerns: No Exam Day of Procedure 04/13/24 16:47 Patient weight: morbidly obese
[2024-04-14] VITALS (9 sets, daily range): BP systolic 95–129; BP diastolic 57–91; PULSE 46–83; RESP 12–18; TEMP 36.4–36.8; O2SAT 97–100; BMI 41.5
--- NOTE | 2024-04-14 06:49 | WPDHPUPDATE1 ---
History and Physical Update Update Date/Time: 04/14/24 06:49 History and Physical has been reviewed, including an updated exam of the patient. There are NO changes in the patient's condition. Risks, benefits, and alternatives have been discussed and questions answered. Patient agrees to proceed with procedure.
[2024-04-14] MEDS: LACTATED RINGERS 1,000 ML 30 ML IV CONT (07:00)
[2024-04-14] MEDS: KETOROLAC 15 MG/ML VIAL (*BKC) IV PUSH (07:00)
--- NOTE | 2024-04-14 07:27 | WPDANESEPPF ---
Anes - Initial Pre Proc Eval Procedure: Operation Date: 04/14/24 07:30 Proposed Procedures p Diagnostic Laparoscopy, - Rigo Tidwell MD s Hysteroscopy Dilation and Curettage with Intrauterine Device Removal - Rigo Tidwell MD Date/Time: 04/14/24 07:27 Surgeon: Rigo Tidwell MD Pre Op Diagnosis: pelvic pain, retained iud Patient Data Age: 43 Gender: F Height: 1.6 m Weight: 108.2 kg Allergies Allergy/AdvReac Type Severity Reaction Status Date / Time Penicillins AdvReac Unknown Fever Verified 04/04/24 12:14 Home Medications Medication Instructions Recorded Confirmed Type levonorgestrel 21 mcg/24 hr (up to 1 device intrauterine ONCE 01/02/20 04/04/24 History 8 years) 52 mg intrauterine device (Mirena) albuterol sulfate 90 mcg/actuation 2 puff inhalation QID PRN 03/24/21 04/04/24 Rx aerosol inhaler shortness of breath or wheezing #8 grams quetiapine 50 mg tablet 50 mg PO QHS #90 tabs 02/04/22 04/04/24 Rx pantoprazole 20 mg tablet,delayed 20 mg PO QAM #90 tabs 11/23/23 04/04/24 Rx release cyclobenzaprine 10 mg tablet 10 mg PO TID PRN Spasms 04/04/24 04/04/24 History duloxetine 30 mg capsule,delayed 30 mg PO HS 04/04/24 04/04/24 History release nitrofurantoin 100 mg PO BID 04/04/24 04/04/24 History monohydrate/macrocrystals 100 mg capsule Patient hx anesthesia problems: none Family hx anesthesia problems: none Results Review: All pre-operative results and documents have been reviewed as part of the pre-operative evaluation. [facility] Past Medical History Medical History Allergies Anxiety Asthma Bipolar 2 disorder Depression (~05/2019) Encounter for long-term (current) use of other medications Family history of osteoporosis Fracture, tooth GERD (gastroesophageal reflux disease) GERD (gastroesophageal reflux disease) Headache, migraine History of bipolar disorder (~05/2019) Hx of sleep apnea Lumbago Marijuana abuse Migraine Schizoaffective disorder Smoker Surgical History Surgical History H/O laparoscopy H/O: History of tonsillectomy Family History Family History Mother , motorcycle accident No problems noted. Grandparent , bladder infection No problems noted. Grandparent No problems noted. Grandparent Cerebrovascular accident Social History Social History Smoking packs per day: 0.5 Smoking cigarettes per day: 10.0 Years smoked: 15 Smoking pack-years: 7.50 Smoking status: Current every day smoker Tobacco type: cigarettes Alcohol intake: current Drinks per week: 2 Substance use: unknown Substance use type: marijuana Lack of Transportation: No Lack of Food: Sometimes True Current Housing: I Have Housing Concerned About Future Housing: YES Difficulty Paying Gas/Electric Bills: YES Difficulty Paying for Meds: YES Currently Unemployed: No Education: High School Diploma/GED Difficulty w/ Childcare or Family Care: YES Living arrangements: with family Gender identity (if verbalized by the patient): Female Spiritual care concerns: No Anes - Eval Final PreProcedure Day of Procedure 04/14/24 07:27 Patient weight: morbidly obese Heart: regular rate and rhythm Lungs: clear to auscultation Airway: Mallampati scale class III Neurological: alert and oriented Last oral intake: >/= 8 hours ASA classification: III Emergent: no Anesthetic plan: proceed Anesthesia type and monitoring: general ETT and standard monitoring Results Review: All pre-operative results and documents have been reviewed as part of the pre-operative evaluation. Informed Consent: The patient's anesthetic plan and its attendant risks and benefits were discussed with the patient/f
--- NOTE | 2024-04-14 08:28 | W.PM.PROC2 ---
Procedure Note - Detailed Date of Procedure 04/14/24 Pre-op Diagnosis pelvic pain, retained iud Post-op Diagnosis Same Procedure Performed Laparoscopy / hysteroscopy / polypectomy/ dilatation curettage/ removal of IUD Surgeon Rigo Tidwell MD Anesthesia General Indications this is a 43-year-old female with enlarged uterus and IUD which was stuck upper portion uterus. Also has pelvic excessive heavy bleeding Findings fibroid uterus was seen laparoscopy. Adhesions previous surgeries. On hysteroscopy the IUD was seen uterus attached to uterine polyp. Polypectomy was undertaken as well. Description of Procedure The patient was prepped draped in the normal sterile fashion placed in the dorsal lithotomy position. Under excellent general endotracheal anesthesia weighted speculum placed posterior fornix vagina. Anterior lip of the cervix grasped with single-tooth tenaculum. Nunn's cannula inserted the cervix and attached to the single-tooth to be used later for uterine manipulation. Bladder emptied of clear urine the weighted speculum was removed. The gloves were changed. A supraumbilical incision made the Veress needle passed in the abdomen. Abdomen filled with CO2 gas [id number]. The 5mm trocar advanced under direct visualization assuring no injury. Patient placed in Trendelenburg and a suprapubic incision made. The 5mm trocar advanced under direct visualization assuring no injury. The uterus was noted be enlarged consistent with a fibroid uterus. No evidence of endometriosis or other abnormalities were seen. Photo documentation was undertaken the gallbladder liver as well. The instruments withdrawn. The gas removed from the abdomen. The trocars removed the incisions closed with 4 Monocryl and glue. Attention was turned to the hysteroscopy. Uterus sounded to 10cm. Serial dilatation with fragmented dilators performed followed by passage of 5mm visualizing hysteroscope using normal saline as visualizing medium. There was a fairly good-sized polyp seen and the IUD was entangled within this. It the IUD was removed hysteroscopically. Using the reticulating device the polyp was removed. The uterus scraped that over the 365?. The instruments withdrawn. The patient went to recovery in satisfactory condition. All sponge, needle, instrument counts were correct. There were no immediate complications. Estimated Blood Loss 5 Drains No Packing No Pathology Yes Complications No immediate complications Condition Stable Disposition PACU
[2024-04-14 09:02] LABS: BEDSIDEPREGUCG Negative (Negative)
[2024-04-14] MEDS: oxyCODONE HCL (*CRX) 5 MG TAB IR PO (10:07)
== END 2024-04-14 10:40 | disposition home or self-care (01) ==
PROVIDERS: Anesthesiology; PCP Family Medicine; Visit Provider Obstetrics & Gynecology
PROC: (CPT 49320; principal; 2024-04-14 07:30)
PROC: 0U5B8ZZ Destruction of Endometrium, Via Natural or Artificial Opening Endoscopic (ICD-10-PCS; CPT 58563; 2024-04-14 07:30)
DX: T83.32XA Displacement of intrauterine contraceptive device, initial encounter (principal); N84.0 Polyp of corpus uteri; D25.9 Leiomyoma of uterus, unspecified; R10.2 Pelvic and perineal pain; Y84.8 Other medical procedures as the cause of abnormal reaction of the patient, or of later complication, without mention of misadventure at the time of the procedure; F17.210 Nicotine dependence, cigarettes, uncomplicated; E66.01 Morbid (severe) obesity due to excess calories; Z68.41 Body mass index [BMI] 40.0-44.9, adult
CPT/HCPCS: 49320; 58562; 88305; A9270; J1100; J1885; J2003; J2250; J2371; J2405; J2704; J3010; J7120

== ENCOUNTER 2024-07-18 10:11 | Outpatient (CLI) | payer MEDICARE, MEDICAID, SELFPAY ==
--- NOTE | 2024-07-18 11:15 | NEURO_ITS ---
Impression: # Complains of numbness of lower extremities. ? # Normal motor and sensory Nerve Conduction Study. ? # normal needle examination. ? Nerve Conduction Studies Anti Sensory Summary Table ?Stim Site NR Peak (ms) P-T Amp (?V) Site1 Site2 Delta-P (ms) Dist (cm) Wilfrido (m/s) Left Sup Fibular Anti Sensory (Ant Lat Mall) 14 cm ? 2.8 9.3 14 cm Ant Lat Mall 2.8 16.0 57 Right Sup Fibular Anti Sensory (Ant Lat Mall) 14 cm ? 2.9 6.3 14 cm Ant Lat Mall 2.9 16.0 55 Left Sural Anti Sensory (Lat Mall) Calf ? 3.2 14.9 Calf Lat Mall 3.2 16.0 50 Right Sural Anti Sensory (Lat Mall) Calf ? 3.7 6.6 Calf Lat Mall 3.7 16.0 43 Motor Summary Table ?Stim Site NR Onset (ms) O-P Amp (mV) Site1 Site2 Delta-0 (ms) Dist (cm) Wilfrido (m/s) Left Peroneal Motor (Vastus Med) Ankle ? 4.2 3.5 Popit Ankle 7.5 35.0 47 Popit ? 11.7 2.6 Right Peroneal Motor (Vastus Med) Ankle ? 4.1 6.3 Popit Ankle 7.4 34.0 46 Popit ? 11.5 4.7 Left Tibial Motor (Abd Benaivdez Brev) Ankle ? 4.6 2.8 Knee Ankle 7.6 36.0 47 Knee ? 12.2 2.4 Right Tibial Motor (Abd Bneavidez Brev) Ankle ? 4.4 3.5 Knee Ankle 7.6 35.0 46 Knee ? 12.0 2.6 F Wave Studies ?NR F-Lat (ms) L-R F-Lat (ms) Left Peroneal (Mrkrs) (EDB) ? 49.69 1.60 Right Peroneal (Mrkrs) (EDB) ? 48.09 1.60 Left Tibial (Mrkrs) (Abd Hallucis) ? 50.36 0.31 Right Tibial (Mrkrs) (Abd Hallucis) ? 50.05 0.31 EMG ?Side Muscle Nerve Root Ins Act Fibs Amp Dur Recrt Comment Right AntTibialis Dp Br Fibular L4-5 Nml Nml Nml Nml Nml Right Gastroc Tibial S1-2 Nml Nml Nml Nml Nml Right Fibularis Long Sup Br Fibular L5-S1 Nml Nml Nml Nml Nml Right Flex Dig Long Tibial L5-S2 Nml Nml Nml Nml Nml Right Ext Dig Brev Dp Br Fibular L5, S1 Nml Nml Nml Nml Nml Right QuadratusFem QuadFemoris L4-5, S1 Nml Nml Nml Nml Nml Left AntTibialis Dp Br Fibular L4-5 Nml Nml Nml Nml Nml Left Gastroc Tibial S1-2 Nml Nml Nml Nml Nml Left Fibularis Long Sup Br Fibular L5-S1 Nml Nml Nml Nml Nml Left Flex Dig Long Tibial L5-S2 Nml Nml Nml Nml Nml Left Ext Dig Brev Dp Br Fibular L5, S1 Nml Nml Nml Nml Nml Left QuadratusFem QuadFemoris L4-5, S1 Nml Nml Nml Nml Nml MTDD
== END 2024-07-18 10:12 | disposition home or self-care (01) ==
PROVIDERS: PCP Family Medicine; Visit Provider Family Medicine
DX: G57.93 Unspecified mononeuropathy of bilateral lower limbs (principal)
CPT/HCPCS: 95886; 95910

== ENCOUNTER 2024-07-31 18:32 | Emergency (ER) | payer MEDICARE, MEDICAID, SELFPAY ==
--- OUTSIDE RECORDS SUMMARY | 2024-07-31 18:34 | XMS_ITS | Encounter Summary ---
Author Organization [facility] Address [address] [place] [address] Phone Care Team Providers Care Warehouse Hand Name Role Phone Provider, None Primary Care Provider Unavailabl e Reason for Visit * Reason Comments Medication Refill Encounter Details Date Type Department Care Team (Late st Contact Info) Description 11/08/2020 Refill [facility] - [facility] [address] [place] [address] Lyndsey Valverde APRN, [employer] [address] [place] [address] Medication Refill Social History Tobacco Use Types Packs/Day Years Used Date Smoking Tobacco: Every Day Smokeless Tobacco: Never Comments No Sex and Gender Information Value Date Recorded Sex Assigned at Not on file Legal Sex Female 11:00 PM CDT Gender Identity Not on file Sexual Orientation Not on file documented as of this encounter Plan of Treatment Not on file documented as of this encounter Visit Diagnoses Diagnosis Pain, dental Unspecified disorder of the teeth and supporting structures documented in this encounter Care Teams Warehouse Hand Relationship Specialty Start Date End Date Provider, None [facility] PCP - General 10/02/20 documented as of this encounter
--- OUTSIDE RECORDS SUMMARY | 2024-07-31 18:34 | XMS_ITS | Clinical Summary ---
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 09/04/2020 Active ibuprofen (MOTRIN) 800 MG TabletIndication s:Pain, dental Take 1 Tablet by mouth every 8 hours. 30 Tablet 10/02/2020 Active Active Problems No known active problems Immunizations Immunization Administration Dates Next Due Covid-19, Mrna, Lnp-s, Pf, 30 Mcg/0.3 Ml Dose (Mireille nolan) 06/17/2021 Social History Tobacco Use Types Packs/Day Years Used Date Smoking Tobacco: Every Day Smokeless Tobacco: Never Comments No Sex and Gender Information Value Date Recorded Sex Assigned at Not on file Legal Sex Female 11:00 PM CDT Gender Identity Not on file Sexual Orientation Not on file Last Filed Vital Signs Vital Sign Reading Time Taken Comments Blood Pressure 132/80 10/02/2020 8:21 AM CDT Pulse 78 10/02/2020 8:21 AM CDT Temperature 36.6 ??C (97.8 ??F) 10/02/2020 8:21 AM CD T Respiratory Rate 24 10/02/2020 8:21 AM CDT Oxygen Saturation 98% 10/02/2020 8:21 AM CDT Inhaled Oxygen Concentration - - Weight 104.3 kg (230 lb) 10/02/2020 8:21 AM CDT Height - - Body Mass Index - - Plan of Treatment Health Maintenance Due Date Last Done Comments Hepatitis C Virus (HCV) Screening 1981 TdaP Immunization 1981 Hepatitis B Immunization (1 of 3 - 19+ 3-dose series) 2000 Pap Smear 2002 Cervical Cancer Screening (CCS) 2011 HPV/Cotest 2011 Discussion re Starting/Frequency of Mammograms 2021 Influenza Immunization (#1) 2024 SARS-COV-2 Immunization ( season) 2024 06/17/2021, 11/05/2020, 10/15/2020 Respiratory Syncytial Virus (RSV) Immunization (Adult) (1 - 1-dose 75+ series) 2056 Meningococcal Immunization (ACWY) Aged Out No longer eligible b ased on patient's age to complete this topic Pneumococcal Immunization Combined Aged Out No longer eligible b ased on patient's age to complete this topic Rotavirus Immunization Aged Out No lo nger eligible based on patient's age to complete this topic Insurance MEDICARE Care Teams Milk Receiver Relationship Specialty Start Date End Date Provider, None [place] PCP - General 10/02/20
--- OUTSIDE RECORDS SUMMARY | 2024-07-31 18:35 | XMS_ITS | Data Portability ---
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 Plan of Treatment Reminders Order Date Submit Date Provider Last Modified By Organization Details Last Modified Time Details Appointments None recorded. Lab CBC w/ auto diff 2017 018 [place] [facility], [address] [facility], [place] [address], [place], [address], 9 15:55:56 urinalysis , complete 2017 018 [place] [facility], [address] [facility], [place] [address], [place], [address], 8 17:34:31 CMP, serum or plasma 2017 018 [place] [facility], [address] [employer], [address], [place], [address], 8 14:31:15 lipid panel, serum 2017 018 [place] [facility], [address] [employer], [facility] [address], [place], [address], 8 14:31:14 CBC w/ auto diff 2017 018 [place] [facility], [address] [facility], [facility] [address], [place], [address], 8 14:31:13 TSH, serum or plasma 2017 018 [place] [facility], [address] [facility], [facility] [address], [place], [address], 8 14:31:14 Referral None recorded. Procedures None recorded. Surgeries None recorded. Imaging None recorded. Medication Orders None recorded. Patient TargetsNo targets recorded. Patient Instructions Encounter Date Encounter Id Patient Instructions Last Modified By Organization Details Last Modified Time 01/07/2018 [id number] Discussed wound healing and activities. Will get CBC today and proceed as indicated. RTC in 4 weeks for final PP visit. [email or web address] Not available 01/07/2018 10:22:52 02/04/2018 [id number] Discussed wound healing and activities. RTC 3 months for annual visit. Small wound seroma drained in office today. Recommend soaking in epsom salt bath. [email or web address] Not available 02/04/2018 10:45:19 02/25/2018 [id number] Pt doing well. Discussed wound healing and activities. RTC 3 months for annual visit. [email or web address] Not available 02/25/2018 11:28:05 05/13/2018 [id number] Past medical history reviewed with patient. Current symptoms evaluated. Recommend annual mammography starting at age of 41 Annual labwork today. Pt informed lab results will be published to patient portal. All patient questions answered. RTC 1 year for annual visit. [email or web address] Not available 05/13/2018 11:19:54 08/19/2018 [id number] RTC with fever, pain or bleeding. Expect 10 days of unplanned spotting for first month. [email or web address] Not available 08/19/2018 16:03:45 Reason for Referral None Reported. Results Created Date Observation Date Name Description Value Unit Range Abnormal Flag Note LastModifiedBy Organization Detail LastModifiedTime 12/24/19 18 12/26/2017 strep tococ cus group B, cultu re, unspe cifie d speci men culture, strep B - SPECIM EN NUMBER : [id number] CULTU RE, STREP B - PREGN ARUNA SPECI MEN NUMBE R: [id number] SPECI MEN COMME NT: VGR SOURC E: VAGIN AL/RE CTAL REPOR T STATU S: FINAL FINAL REPOR T: 12/26 NO GROUP B BETA STREP TOCOC CI RECOV ERED AT 36 HOURS PRELI MINAR Y STREP . SCREE N: 12/25 No beta hemol ytic strep tococ ci isola monika at 12 hrs Testi ng Perfo rmed At: [facility] [address] [place] [address] Labor atory Dire tor: Isac quintero M.D. CLMARY Calvillo r [id number] [place]. [id number] -01 Not Available [facility] - Main Lab (Blood Not Drawn At This Location) Visit [facility] [place], [address], 12/26/2017 17:56:40 05/13/20 18 05/14/2018 urina lysis , compl ete color YELLOW yellow -straw Not Available [facility] Main Lab (Blood Not Drawn At This Location) Visit [facility] [place], [address], 05/14/2018 02:35:04 05/13/20 18 05/14/2018 urina lysis , compl ete appearance CLEAR clear Not Available [facility] - Main Lab (Blood Not Drawn At This Location) Visit [facility] [place], [address], 05/14/2018 02:35:04 05/13/20 18 05/14/2018 urina lysis , compl ete specific gravity 1.009 1.005- 1.035 Not Available [facility] Main Lab (Blood Not Drawn At This Location) Visit [facility] [place], [address], 05/14/2018 02:35:04 05/13/20 18 05/14/2018 urina lysis , compl ete leukocyte esterase NEGATI VE negati ve Not Available [facility] Main Lab (Blood Not Drawn At This Location) Visit [facility] [place], [address], 05/14/2018 02:35:04 05/13/20 18 05/14/2018 urina lysis , compl ete nitrite NEGATI VE negati ve Not Available [facility] Main Lab (Blood Not Drawn At This Location) Visit [facility] [place], [address], 05/14/2018 02:35:04 05/13/20 18 05/14/2018 urina lysis , compl ete pH 6.0 5.0-9. 0 Not Available [facility] Main Lab (Blood Not Drawn At This Location) Visit [facility] For Location [place], [address], 05/14/2018 02:35:04 05/13/20 18 05/14/2018 urina lysis , compl ete protein NEGATI VE negati ve Not Available [facility] Main Lab (Blood Not Drawn At This Location) Visit [facility] [place], [address], 05/14/2018 02:35:04 05/13/20 18 05/14/2018 urina lysis , compl ete glucose NEGATI VE negati ve Not Available [facility] Main Lab (Blood Not Drawn At This Location) Visit [facility] [place], [address], 05/14/2018 02:35:04 05/13/20 18 05/14/2018 urina lysis , compl ete ketones NEGATI VE negati ve Not Available [facility] Main Lab (Blood Not Drawn At This Location) Visit [facility] [place], [address], 05/14/2018 02:35:04 05/13/20 18 05/14/2018 urina lysis , compl ete urobilinogen <2.0 mg/dL <=2.0 Not Available [facility] Main Lab (Blood Not Drawn At This Location) Visit [facility] For Location [facility], [place], [address], 05/14/2018 02:35:04 05/13/20 18 05/14/2018 urina lysis , compl ete bilirubin NEGATI VE negati ve Not Available [facility] Main Lab (Blood Not Drawn At This Location) Visit [facility] [place], [address], 05/14/2018 02:35:04 05/13/20 18 05/14/2018 urina lysis , compl ete occult blood NEGATI VE negati ve Not Available [facility] - Main Lab (Blood Not Drawn At This Location) Visit [facility] For Location [facility], [place], [address], 05/14/2018 02:35:04 05/13/20 18 05/14/2018 urina lysis , compl ete white blood cells 0-5 /hpf 0-5 Not Available [facility] - Main Lab (Blood Not Drawn At This Location) Visit [facility] [place], [address], 05/14/2018 02:35:04 05/13/20 18 05/14/2018 urina lysis , compl ete red blood cells 0-2 /hpf 0-5 Not Available [facility] - Main Lab (Blood Not Drawn At This Location) Visit [facility] [place], [address], 05/14/2018 02:35:04 05/13/20 18 05/14/2018 urina lysis , compl ete epithelial cells 0-5 /hpf 0-10 Not Available [facility] - Main Lab (Blood Not Drawn At This Location) Visit [facility] For [facility], [place], [address], 05/14/2018 02:35:04 05/13/20 18 05/14/2018 urina lysis , compl ete bacteria 1+ negati ve abnormal Testi ng Perfo rmed At: [facility] [address] [place] [address] [facility] tor: Isac quintero M.D. ZENAIDA martínez [id number] [place] [id number] Not Available [facility] Main Lab (Blood Not Drawn At This Location) Visit [facility] [place], [address], 05/14/2018 02:35:04 05/13/20 18 05/14/2018 CBC w/ auto diff WBC 15.0 K/uL 4.0-11 .0 high Not Available [facility] Main Lab (Blood Not Drawn At This Location) Visit [facility] [place], [address], 05/16/2018 14:31:13 05/13/20 18 05/14/2018 CBC w/ auto diff RBC 5.12 M/uL 3.80-5 .10 high Not Available [facility] Main Lab (Blood Not Drawn At This Location) Visit [facility] [place], [address], 05/16/2018 14:31:13 05/13/20 18 05/14/2018 CBC w/ auto diff hemoglobin 13.8 g/dL 11.5-1 5.5 Not Available [facility] Main Lab (Blood Not Drawn At This Location) Visit [facility] [place], [address], 05/16/2018 14:31:13 05/13/20 18 05/14/2018 CBC w/ auto diff hematocrit 41.4 % 34.0-4 5.0 Not Available [facility] Main Lab (Blood Not Drawn At This Location) Visit [facility] [place], [address], 05/16/2018 14:31:13 05/13/20 18 05/14/2018 CBC w/ auto diff MCV 80.9 fL 80.0-1 00.0 Not Available [facility] Main Lab (Blood Not Drawn At This Location) Visit [facility] [place], [address], 05/16/2018 14:31:13 05/13/20 18 05/14/2018 CBC w/ auto diff MCH 27.0 pg 27.0-3 4.0 Not Available [facility] Main Lab (Blood Not Drawn At This Location) Visit [facility] [place], [address], 05/16/2018 14:31:13 05/13/20 18 05/14/2018 CBC w/ auto diff MCHC 33.3 g/dL 32.0-3 5.5 Not Available [facility] Main Lab (Blood Not Drawn At This Location) Visit [facility] [place], [address], 05/16/2018 14:31:13 05/13/20 18 05/14/2018 CBC w/ auto diff RDW 13.2 % 11.0-1 5.0 Not Available [facility] Main Lab (Blood Not Drawn At This Location) Visit [facility] [place], [address], 05/16/2018 14:31:13 05/13/20 18 05/14/2018 CBC w/ auto diff neutrophils 72.4 % 40.0-7 4.0 Not Available [facility] - Main Lab (Blood Not Drawn At This Location) Visit [facility] [place], [address], 05/16/2018 14:31:13 05/13/20 18 05/14/2018 CBC w/ auto diff lymphocytes 21.1 % 19.0-4 8.0 Not Available [facility] Main Lab (Blood Not Drawn At This Location) Visit [facility] [place], [address], 05/16/2018 14:31:13 05/13/20 18 05/14/2018 CBC w/ auto diff monocytes 5.4 % 4.0-13 .0 Not Available [facility] Main Lab (Blood Not Drawn At This Location) Visit [facility] [place], [address], 05/16/2018 14:31:13 05/13/20 18 05/14/2018 CBC w/ auto diff eosinophils 0.7 % 0.0-7. 0 Not Available [facility] Main Lab (Blood Not Drawn At This Location) Visit [facility] [place], [address], 05/16/2018 14:31:13 05/13/20 18 05/14/2018 CBC w/ auto diff basophils 0.4 % 0.0-2. 0 Not Available [facility] Main Lab (Blood Not Drawn At This Location) Visit [facility] [place], [address], 05/16/2018 14:31:13 05/13/20 18 05/14/2018 CBC w/ auto diff platelet count 293 K/uL 130-40 0 Testi ng Perfo rmed At: [facility] [address] [place] [address] [facility] Dire[facility] tor: Eligio Escalante Numbmatthew r [id number] [place] [id number] Not Available [facility] Main Lab (Blood Not Drawn At This Location) Visit [facility] [place], [address], 05/16/2018 14:31:13 05/13/20 18 05/14/2018 TSH, serum or plasm a TSH, third generation 2.420 uIU/m L 0.400- 4.100 Testi ng Perfo rmed At: [employer] [facility] [employer] [address] [place] [address] [facility] tor: Eligio Escalante r [id number] [place] [id number] -01 Not Available [facility] Main Lab (Blood Not Drawn At This Location) Visit [facility] [place], [address], 05/16/2018 14:31:14 05/13/20 18 05/14/2018 lipid panel , serum cholesterol 243 mg/dL <200 high Not Available [facility] - Main Lab (Blood Not Drawn At This Location) Visit [facility] [place], [address], 05/16/2018 14:31:14 05/13/20 18 05/14/2018 lipid panel , serum triglyceride s 587 mg/dL <150 high Not Available [facility] - Main Lab (Blood Not Drawn At This Location) Visit [facility] [place], [address], 05/16/2018 14:31:14 05/13/20 18 05/14/2018 lipid panel , serum HDL cholesterol 41 mg/dL >39 Not Available Clin [facility] - Main Lab (Blood Not Drawn At This Location) Visit [facility] [place], [address], 05/16/2018 14:31:14 05/13/20 18 05/14/2018 lipid panel , serum calc LDL chol NOTE mg/dL <100 UNABL E TO CALCU LATE A VALID LDL NADEGE STERO L WHEN THE TRIGL YCERI DE VALUE IS GREAT ER THAN 400 MG/DL . Not Available [facility] Main Lab (Blood Not Drawn At This Location) Visit [facility] [place], [address], 05/16/2018 14:31:14 05/13/20 18 05/14/2018 lipid panel , serum risk ratio LDL/HDL (NOTE) ratio <3.22 UNABL E TO CALCU LATE Testi ng Perfo rmed At: [facility] [address] [place] [address] Labor atory Dire tor: Isac quintero M.D. ZENAIDA martínez [id number] [place] [id number] -01 Not Available [facility] Main Lab (Blood Not Drawn At This Location) Visit [facility] [place], [address], 05/16/2018 14:31:14 05/13/20 18 05/14/2018 CMP, serum or plasm a glucose 95 mg/dL 70-99 Not Available [facility] Main Lab (Blood Not Drawn At This Location) Visit [facility] [place], [address], 05/16/2018 14:31:15 05/13/20 18 05/14/2018 CMP, serum or plasm a BUN 8 mg/dL 6-20 Not Available [facility] Main Lab (Blood Not Drawn At This Location) Visit [facility] [place], [address], 05/16/2018 14:31:15 05/13/20 18 05/14/2018 CMP, serum or plasm a creatinine 0.76 mg/dL 0.60-1 .30 Not Available [facility] Main Lab (Blood Not Drawn At This Location) Visit [facility] [place], [address], 05/16/2018 14:31:15 05/13/20 18 05/14/2018 CMP, serum or plasm a eGFR amer. 116 mL/mi n/1.7 3 >60 Not Available [facility] Main Lab (Blood Not Drawn At This Location) Visit [facility] For Location [place], [address], 05/16/2018 14:31:15 05/13/20 18 05/14/2018 CMP, serum or plasm a eGFR non- amer. 100 mL/mi n/1.7 3 >60 Not Available [facility] Main Lab (Blood Not Drawn At This Location) Visit [facility] [place], [address], 05/16/2018 14:31:15 05/13/20 18 05/14/2018 CMP, serum or plasm a calc BUN/creat 11 ratio 6-28 Not Available [facility] - Main Lab (Blood Not Drawn At This Location) Visit [facility] [place], [address], 05/16/2018 14:31:15 05/13/20 18 05/14/2018 CMP, serum or plasm a sodium 141 mEq/L 133-14 6 Not Available [facility] Main Lab (Blood Not Drawn At This Location) Visit [facility] [place], [address], 05/16/2018 14:31:15 05/13/20 18 05/14/2018 CMP, serum or plasm a potassium 4.8 mEq/L 3.5-5. 4 Not Available [facility] Main Lab (Blood Not Drawn At This Location) Visit [facility] [place], [address], 05/16/2018 14:31:15 05/13/20 18 05/14/2018 CMP, serum or plasm a chloride 102 mEq/L 95-107 Not Available [facility] Main Lab (Blood Not Drawn At This Location) Visit [facility] [place], [address], 05/16/2018 14:31:15 05/13/20 18 05/14/2018 CMP, serum or plasm a carbon dioxide 24 mEq/L Not Available [facility] - Main Lab (Blood Not Drawn At This Location) Visit [facility] [place], [address], 05/16/2018 14:31:15 05/13/20 18 05/14/2018 CMP, serum or plasm a calcium 10.1 mg/dL 8.5-10 .5 Not Available [facility] Main Lab (Blood Not Drawn At This Location) Visit [facility] [place], [address], 05/16/2018 14:31:15 05/13/20 18 05/14/2018 CMP, serum or plasm a protein, total 7.3 g/dL 6.1-8. 3 Not Available [facility] Main Lab (Blood Not Drawn At This Location) Visit [facility] [place], [address], 05/16/2018 14:31:15 05/13/20 18 05/14/2018 CMP, serum or plasm a albumin 4.9 g/dL 3.5-5. 2 Not Available [facility] Main Lab (Blood Not Drawn At This Location) Visit [facility] [place], [address], 05/16/2018 14:31:15 05/13/20 18 05/14/2018 CMP, serum or plasm a calc globulin 2.4 g/dL 1.9-3. 7 Not Available [facility] - Main Lab (Blood Not Drawn At This Location) Visit [facility] For [facility] [place], [address], 05/16/2018 14:31:15 05/13/20 18 05/14/2018 CMP, serum or plasm a calc A/G ratio 2.0 ratio 1.0-2. 6 Not Available [facility] Main Lab (Blood Not Drawn At This Location) Visit [facility] [place], [address], 05/16/2018 14:31:15 05/13/20 18 05/14/2018 CMP, serum or plasm a bilirubin, total 0.2 mg/dL <=1.2 Not Available [facility] - Main Lab (Blood Not Drawn At This Location) Visit [facility] [place], [address], 05/16/2018 14:31:15 05/13/20 18 05/14/2018 CMP, serum or plasm a alkaline phosphatase 59 U/L 40-[address] [facility] - Main Lab (Blood Not Drawn At This Location) Visit [facility] [place], [address], 05/16/2018 14:31:15 05/13/20 18 05/14/2018 CMP, serum or plasm a AST 16 U/L 9-40 Not Available [facility] - Main Lab (Blood Not Drawn At This Location) Visit [facility] [place], [address], 05/16/2018 14:31:15 05/13/20 18 05/14/2018 CMP, serum or plasm a ALT 20 U/L 5-40 Testi ng Perfo rmed At: [facility] [address] [place] [address] Labor atory Dire tor: Isac quintero M.D. ZENAIDA Calvillo r [id number] [place] [id number] -[id number] Not Available [facility] Main Lab (Blood Not Drawn At This Location) Visit [facility] [place], [address], 05/16/2018 14:31:15 07/20/19 19 07/20/2018 lipid panel , serum cholesterol 192 mg/dL <200 Not Available [facility] - Main Lab (Blood Not Drawn At This Location) Visit [facility] [place], [address], 07/21/2018 00:45:35 07/20/1907/20/2018 lipid panel , serum triglyceride s 179 mg/dL <150 high Not Available [facility] - Main Lab (Blood Not Drawn At This Location) Visit [facility] [place], [address], 07/21/2018 00:45:35 07/20/1907/20/2018 lipid panel , serum HDL cholesterol 38 mg/dL >[address] [facility] - Main Lab (Blood Not Drawn At This Location) Visit [facility] [place], [address], 07/21/2018 00:45:35 07/20/1907/20/2018 lipid panel , serum calc LDL chol 118 mg/dL <100 high Not Available [facility] - Main Lab (Blood Not Drawn At This Location) Visit [facility] [place], [address], 07/21/2018 00:45:35 07/20/1907/20/2018 lipid panel , serum risk ratio LDL/HDL 3.11 ratio <3.22 Testi ng Perfo rmed At: [facility] [address] [place] [address] [facility] tor: Isac quintero M.D. ZENAIDA martínez [id number] [place] [id number] -01 Not Available [facility] Main Lab (Blood Not Drawn At This Location) Visit [facility] For Location [address], [place], [address], 07/21/2018 00:45:35 Result Notes None recorded. Problems Name Problem SNOMED Code Status Onset Date Resolution Date Notes Provider Name and Address Organization Details Recorded Time Pregnanc y 35396261 Completed 201701/07/2018 Reny Cox null, [place] [facility] 8 10:25:20 Blood glucose level - finding 778190491 Completed 2017 3 hr glucose: elevated one hour/othe rs wnl Reny [place] [facility] 8 10:25:18 Smoker 80484787 Completed 1ppd [place] [facility] 8 10:25:18 Smoker 01704774 Active 1ppd Kayy [place] [facility] 8 10:15:40 Mitral valve prolapse 687542484 Completed [place] [facility] 8 10:25:18 Heart murmur 04325786 Completed [place] [facility] 8 10:25:19 RhD negative 437380500 Completed O Negative [place] [facility] 8 10:25:18 Heart murmur 93138355 Active Kayy Cab[place] [facility] 8 10:15:40 Mitral valve prolapse 647837852 Active Kayy Cab[place] [facility] 8 10:15:40 Late entry into care 066581294 Completed Ren[place], [place] [facility] 8 10:25:18 [facility] Active 2018 Yaritza panchal [facility] 9 15:54:26 Problem Notes None recorded. Procedures Surgical History Date Name Laterality Status Provider Name and Address Organization Details Recorded Time 9 IUD Insertion completed Reny Cox [facility] 08/19/2018 16:03:26 2 Section completed Kayy Granadosovia [facility] 11/08/2017 16:58:01 4 Ceserean Section completed Kayy Cabello [facility] 11/08/2017 16:57:49 Laparoscopy completed Kayygriselda Granadosovia [facility] 11/08/2017 16:58:11 Imaging Results None recorded. Procedure Notes None recorded. Medical Equipment None Reported. Allergies Allergen ID Allergen Name Allergen Category Reaction Reaction Severity Criticality Documentation Date Start Date Code Code System Note Provider Name and Address Organization Details Recorded Time 46072 Product containin g penicilli n and antibioti c (product) medicatio n dizziness headache irregular heart rate moderate severe severe Not available 11/08/20171981 01609 05 SNOMED Kayy panchal [facility] 8 16:27:22 Medications Name Sig Start Date Stop Date Status Note LastModified by Organization Details LastModified Time hydrocodone 5 mg-acetamin ophen 325 mg tablet 02/04 completed Not Available Not Available Not Available acetaminoph en 500 mg tablet 12/29 completed Not Available Not Available Not Available docusate sodium 100 mg capsule active Not Available Not Available N ot Available ibuprofen 600 mg tablet 02/04 completed Not Available Not Available Not Available cefuroxime axetil 500 mg tablet Take 1 tablet every 12 hours by oral route for 7 days. active Not Available Not Available No t Available Anusol-HC 25 mg rectal suppository Insert 1 supposito ry twice a day by rectal route for 14 days. 2017 active Not Available Not Available Not Avai lable 5-hydroxytr yptophan (5-HTP) 50 mg capsule 02/25 completed Not Available Not Available Not Available lysine active Not Available Not Availa ble Not Available melatonin active Not Available Not Tish ilable Not Available zinc active Not Available Not Availa ble Not Available Tylenol active Not Available Not Avail able Not Available Stool Softener active Not Available Not Available Not Available Vitamin active Not Available Not Available Not Available RhoGAM Ultra-Filte red PLUS 1,500 unit (300 mcg) intramuscul ar syringe Inject 1 syringe by intramusc ular route. 2017 active Not Available Not Available Not Avai lable melatonin 5 mg tablet 02/04 completed Not Available Not Available Not Available Vitals Date Recorded Body height Systolic blood pressure Diastolic blood pressure Provider Name and Address Organization Details Last Updated DateTime 01/07/2018 160.02 cm 124 mm[Hg] 80 mm[Hg] Kayy [place] [facility] 01/07/2018 10:18:33 Date Recorded Body height Provider Name an d Address Organization Details Last Updated DateTime 02/04/2018 160.02 cm Reny Cox [place] [facility] 02/05/20 18 10:13:10 Date Recorded Body mass index (BMI) Body weight Systolic blood pressure Diastolic blood pressure Provider Name and Address Organization Details Last Updated DateTime 02/04/2018 36.3 kg/m2 26726.44 g 122 mm[Hg] 78 mm[Hg] Kayy [place] [facility] 02/04/2018 10:24:52 Date Recorded Body height Body mass index (BMI) Body weight Systolic blood pressure Diastolic blood pressure Provider Name and Address Organization Details Last Updated DateTime 02/25/2018 160.02 cm 37.1 kg/m2 75188.96 g 122 mm[Hg] 76 mm[Hg] Barbie Cook [place] [facility] 8 11:01:08 Date Recorded Body height Body mass index (BMI) Body weight Systolic blood pressure Diastolic blood pressure Provider Name and Address Organization Details Last Updated DateTime 05/13/2018 160.02 cm 39.5 kg/m2 849639.1 g 110 mm[Hg] 64 mm[Hg] Barbie Cook [place] [facility] 8 11:16:22 Date Recorded Body height Body mass index (BMI) Body weight Systolic blood pressure Diastolic blood pressure Provider Name and Address Organization Details Last Updated DateTime 08/19/2018 160.02 cm 39.5 kg/m2 891852.1 g 120 mm[Hg] 68 mm[Hg] Yaritza Dasilva [place] [facility] 9 15:54:10 Social History Question Answer Notes LastModified by Organizat ion Details LastModified Time Tobacco Smoking Status Current Some Day Smoker Kayy panchal, [place] [facility] 11/08/2017 16:27:59 Marital Status eselpidio Informatio n not available 11/08/2017 What Was The Date Of Your Most Recent Tobacco Screening? 08/19/2018 Information n ot available 01/18/2019 How Much Tobacco Do You Smoke? 1 PPW Information not available 11/08/2017 How Many Years Have You Smoked Tobacco? 11 Information not available 11/08/2017 Sex: Unknown Functional Status None recorded. Mental Status None recorded. Family History Relationship Description Onset Age of this Age Resolved Age Notes LastModified by Organization Details LastModified Time Maternal Uncle Asthma 11 50 esegovia Not available 8 16:27:31 Mother Mental disorder 16 31 eseg[place] Not available 2017 16:27:31 Medical History Condition Response Anesthesia complications N Seizure Disorder N Hyperthyroidism N Blood Transfusion Y Frequent Bladder/Kidney Infection N Depression Y Hypothyroidism N Breast Problem N Irregular Menses Y Alzheimer's Disease N Dementia, Senile N Blindness, legal N Arthritis N Infertility N Polycystic Ovarian Syndrome N Abnormal Pap Smear N Cancer N Stroke N Skin Disorder N Endometriosis N Dysmenorrhea(Painful Periods) Y Irritable Bowel Syndrome N Kidney Disease N No Pertinent Medical History N Drug Dependence N Cancer- Colon N Anxiety N Kidney or Bladder Problems N Cancer- Cervical N Alcohol Dependence N Eating Disorder N Lung Disease(COPD) N Cancer-Breast N Anemia N Elevated Cholesterol N Blood Clots in Lungs(Pulmonary Embolism) N Acid Reflux-GERD N Osteopenia N Cancer- Ovarian N Congregation Ancestry N Ovarian Cancer N Diabetes Y Autoimmune Disease(Lupus,MS,RA) N Blood Disorder N Cancer Uterine N Asthma Y Migraine Headache Y Hearing Impaired N Blood Clots in Legs(DVT) N Gastric(Stomach) Ulcers N Hepatitis N Heart Disease N Hypertension N Osteoporosis N Gynecological History Statement/Question Response Date of LMP 08/18/2018 Date of last Mammogram: None History of abnormal pap? N Date of last Colonoscopy 2012 Would you accept blood products? Y Current Control Method IUD Date of last Blood Work: 12/2017 Is PMS a problem for you? Y Is menstrual pain or cramping a problem for you? Y Do you perform self breast exams? N Number of days between periods: 21-48 Menstrual flow: Medium Date of last Pap: 11/08/17 How often do you change pads /tampons on your heaviest day of menses?(Every__hrs?) 1 Do you ever have spotting or bleeding in between your periods: Y Date of last Bone Density 19 years old Age period began: 11 N/A Length of periods(# of days of bleeding) : 1-10 Obstetrics History GPAL:G 12 P 1 2 7 2 Type Value Multiple Births 1 Full Term 1 Induced 0 Spontaneous 6 Premature 2 Living 2 Ectopics 1 Total 12 Past Encounters Encounter ID Performer Location Encounter Start Date Encounter Closed Date Diagnosis/Indication Diagnosis SNOMED-CT Code Diagnosis ICD10 Code Diagnosis Note [id number] Reny Cox [facility] [address] [place] [address],[address] [address] 11/08/2017 15:35:41 11/08/2017 17:50:43 Routine care 131514295 Z34.90 Z3A.12 screening 2437 90313 Z36.0 care: multiparous, older than 35 years 243059366 O09.523 Z3A.29 [id number] MD GILLES Mcgee [address] [place] [address],[address] [address] 11/25/2017 13:38:54 11/25/2017 15:46:44 care: multiparous, older than 35 years 729756372 O09.523 Z3A.32 Hemorrhoids 31121688 K64 .9 Rhesus isoimmunization with problem 464813807 O36.0990 [id number] MD GILLES Mcgee [facility] [place] [facility],[address] [address] 12/09/2017 14:27:56 12/09/2017 15:01:35 care: multiparous, older than 35 years 342625606 O09.523 Z3A.34 Infection of tooth 35178 8007 K04.7 [id number] MD GILLES Mcgee [facility] [place] [facility],[address] [address] 12/23/2017 15:09:22 12/23/2017 15:48:30 care: multiparous, older than 35 years 867514372 O09.523 Z3A.36 [id number] MD GILLES Mcgee [address] [facility],[address] [place] [address] 01/07/2018 09:53:42 01/07/2018 10:38:00 care 277066961 Z39.2 [id number] MD GILLES Mcgee [address] [facility],[address] [place] [address] 02/04/2018 10:09:27 02/04/2018 10:58:28 care [id number] Z39.2 [id number] MD GILLES Mcgee [address] [facility],[address] [place] [address] 02/25/2018 10:40:44 02/25/2018 11:35:25 care 471239601 Z39.2 [id number] MD GILLES Mcgee [address] [facility],[address] [place] [address] 05/13/2018 10:09:14 05/13/2018 11:51:05 Screening for malignant neoplasm of cervix 838673478 Z12.4 Hypercholesterolemia 136 03344 E78.00 Dysuria 49185235 R30.0 Fatigue 76700321 R53.83 [id number] MD GILLES Mcgee [address] [facility],[address] [place] [address] 08/19/2018 15:45:00 08/19/2018 16:42:45 Insertion of intrauterine contraceptive device 71490937 Z30.430 Health Concerns Section Related Observation LastModified by Organization Detai ls LastModified Time None Recorded Concern Status LastModified by Organization Details LastModified Time None Recorded Advance Directives Directive None Recorded Payers Encounter Date Sequence Insurance Name Policy Number Policy Duran Covered Member ID Duran Member ID Guarantor Name 01/07/2018 1 [place] [employer] Chacha Jean Baptiste [id number] Chacha Jean Baptiste 01/07/2018 2 [place] Chacha Jean Baptiste [id number] Chacha Jean Baptiste 02/04/2018 1 [place] Kitonya K Markel [id number] Kitonya Markel 02/04/2018 2 [place] Kitonya Tiffanie Markel [id number] Kitonya Markel 02/25/2018 1 [place] Kitonya K Markel [id number] Kitonya Markel 02/25/2018 2 [place] Tonaa K Markel [id number] Kitonya Markel 05/13/2018 1 [place] Kitonya K Makrel [id number] Kitonya Markel 08/19/2018 1 [place] Kitonya K Markel [id number] Kitonya Markel Notes Date Note Type Note Provider Name and Address Organization Details Recorded Time 01/07/2018 text/html VisitReported bypatient.Onset/Slick ing:Delivery Date: (12/26/2017); 2 weeks Quality:Repeat LTCS; Infant: Male , Delivering MD: Ata; Circumcision performed by: (pt unsure what doctor); Weight: (6 lbs. 13 oz.); Infant Name: (Jyoti Jean Baptiste) Context:complicatio ns of : none; complications of labor: none; complications: none; feeding choice: breast and bottle; denies PP depression symptoms; denies excessive anxiety; good support from partner/family Associated Symptoms:no problems; no fever; no symptoms of mastitis; no dysuria; no abnormal bleeding; no pelvic pain; no constipation; no fecal incontinence; no urinary incontinence Reproductive Health:Desired Contraception: ([place]) [place] [address] [facility],[address], [place], [address], [place] [facility] 01/08/2018 17:43:15 02/04/2018 text/html VisitReported bypatient.Onset/Slick ing:Delivery Date: (12/26/2017); 6 weeks Quality:Repeat LTCS; : Male , Delivering MD: Ata; Circumcision performed by: (pt unsure what doctor); Weight: (6 lbs. 13 oz.); Infant Name: (Jyoti Jean Baptiste) Context:complicatio ns of : none; complications of labor: none; complications: none; feeding choice: breast and bottle; denies PP depression symptoms; denies excessive anxiety; good support from partner/family Associated Symptoms:no problems; no fever; no symptoms of mastitis; no dysuria; no abnormal bleeding; no pelvic pain; no constipation; no fecal incontinence; no urinary incontinence Reproductive Health:Desired Contraception: (hysterectomy)Notes :Pt concerned middle of incision reopened ~ [place] [address] [facility],[address], [place], [address], [facility] 02/10/2018 21:46:48 02/25/2018 text/html VisitReported bypatient.Onset/Slick ing:Delivery Date: (12/26/2017) Quality:Repeat LTCS; Infant: Male , Delivering MD: Ata; Circumcision performed by: (pt unsure what doctor); Weight: (6 lbs. 13 oz.); Name: (Jyoti Jean Baptiste) Context:complicatio ns of : none; complications of labor: none; complications: none; feeding choice: breast and bottle; denies PP depression symptoms; denies excessive anxiety; good support from partner/family Associated Symptoms:no problems; no fever; no symptoms of mastitis; no dysuria; no abnormal bleeding; no pelvic pain; no constipation; no fecal incontinence; no urinary incontinence Reproductive Health:Desired Contraception: (hysterectomy)Notes :F/u on incision drainage- [place] [address] [facility] [address], [place], [address], [facility] 03/05/2018 08:15:30 05/13/2018 text/html Annual HPIReport ed bypatient.Previous Preventative Services:last pap smear (10/2017 neg); Date & Result of last HPV co-testing (10/2017 neg); last colonoscopy (2012); no previous mammogram; no previous bone density Requested labs/testing:reques ts general health panel;declines pap smear;Patient is NOT Fasting Control Method:sexually active; condoms; Pt is satisfied with this method Menses:premenopausa l and periods are:; regular; normal or light menstrual flow; no pain with periods Vaginal/Vulvar Complaints:no vaginal discharge; no vaginal odor; no vaginal dryness Pelvic/Abd Pain:no abdominal pain; no pelvic pain; no pain during intercourse complaints:no pain during urination; no urge incontinence; no stress incontinence; no nocturia GI complaints:no diarrhea; no constipation Additional Symptoms:other additional complaints/symptoms include:(L armpit lump); [place] [address] [facility],[address], [place], [address], [place] [facility] 05/14/2018 12:51:56 OBGyn Episode Ob Episode Information Episode Created Date Number of Fetuses Patient Bloodtype Patient rh Status Prepregnancy Weight lbs Domestic Partner Domestic Partner Phone Father Name Mechanical Sound Technician Status 11/09/19 18 1 CLOSED Fetus Data First Name Last Name Admitted to NICU Weight (g) Sex Living Outcome Pediatric Complications Fetus ID Race Codes Race Delivery Type 2976.47 0704 F Full Term 26180 C/S Hong Calculation Initial Hong Date Initial Exam Date Initial Exam Provider Initial Ultrasound Date Last Menstrual Period Date Ultra Sound Weeks Gestation 0 Eighteen To Twenty Week Hong Update Ultra Sound Date Fundal Height At Umbil Quickening Date Ultra Sound Latest Weeks Gestation Final Hong Confirmed By Final Hong Confirmed Date Final Hong Date Ultra Sound Latest Days Gestation 0 0 Menstrual History Last Menstrual Date Menses Monthly On Bcp Conception Prior Menses Frequency Hcg Plus Date Menarche Onset Age Delivery Information Delivery Date Delivery Type Labor Anesthesia Weeks Gestation Incision Type Labor Labor Length Hrs Delivered By Post Complications Tubal Sterilization Discharge Date Comments 4 General 37 true Preter m labor at 34 weeks. Delivered in [place]. Discharge Information Feeding Method Contraceptive Method Maternal HG B and HCT Levels Ob Episode Information Episode Created Date Number of Fetuses Patient Bloodtype Patient rh Status Prepregnancy Weight lbs Domestic Partner Domestic Partner Phone Father Name Mechanical Sound Technician Status 11/09/19 18 1 CLOSED Fetus Data First Name Last Name Admitted to NICU Weight (g) Sex Living Outcome Pediatric Complications Fetus ID Race Codes Race Delivery Type 3033.16 9704 F Prematur [place] [address] C/S Hong Calculation Initial Hong Date Initial Exam Date Initial Exam Provider Initial Ultrasound Date Last Menstrual Period Date Ultra Sound Weeks Gestation 0 Eighteen To Twenty Week Hong Update Ultra Sound Date Fundal Height At Umbil Quickening Date Ultra Sound Latest Weeks Gestation Final Hong Confirmed By Final Hong Confirmed Date Final Hong Date Ultra Sound Latest Days Gestation 0 0 Menstrual History Last Menstrual Date Menses Monthly On Bcp Conception Prior Menses Frequency Hcg Plus Date Menarche Onset Age Delivery Information Delivery Date Delivery Type Labor Anesthesia Weeks Gestation Incision Type Labor Labor Length Hrs Delivered By Post Complications Tubal Sterilization Discharge Date Comments 2 Regional-Sp inal 36 true Delivere d in [place] Discharge Information Feeding Method Contraceptive Method Maternal HG B and HCT Levels Ob Episode Information Episode Created Date Number of Fetuses Patient Bloodtype Patient rh Status Prepregnancy Weight lbs Domestic Partner Domestic Partner Phone Father Name Mechanical Sound Technician Status 11/09/19 18 1 O Negative CLOSED Fetus Data First Name Last Name Admitted to NICU Weight (g) Sex Living Outcome Pediatric Complications Fetus ID Race Codes Race Delivery Type Cadenc e Nights hade Marisol a false 3090.09 55 M Prematur e Jaundice, tongue tied, 5 oz amniotic fluid removed from stomach 95137 2106-3 White C/S Problems Problem Notes Repeat c/s 01/17 @ 12:30No th yroid Problems Kitonya & ChristopherCat ownerSmokes 4-6 cig per day & marijuana use (+ 11/08, - 11/25)It's a BOY! named Velma!Borderline GDM Problem Name Start Date End Date Resolution Snomed Code Not e Late entry into care 371367983 RhD negative 991703666 O Negat margy Blood glucose level - finding 11/18/2017 224312675 3 hr glucose: elevated one hour/others wnl Mitral valve prolapse 45448597 1 Heart murmur 20916248 Smoker 78214722 1ppd Hong Calculation Initial Hong Date Initial Exam Date Initial Exam Provider Initial Ultrasound Date Last Menstrual Period Date Ultra Sound Weeks Gestation 01/22/2018 11/08/2017 04/17/2017 0 Eighteen To Twenty Week Hong Update Ultra Sound Date Fundal Height At Umbil Quickening Date Ultra Sound Latest Weeks Gestation Final Hong Confirmed By Final Hong Confirmed Date Final Hong Date Ultra Sound Latest Days Gestation 0 01/23/20 18 0 Pre- Flowsheet Flowsheet Date 11/08/2017 Chandler Score Blood Edema Fundus Height Fundus Units Glucose Ketones Leukocytes Nitrite Labor Signs Protein Cervic Dilation Cervic Effacement Cervic Station none 29 cm none neg Type Weight in lbs Pre/Post Dialysis Refused 210.618046760352 BP Diastolic BP Location Tested BP Systolic BP Type 76 118 sitting Fetus Heart Rate Present A 133 Present Fetus Movement A Yes Comments Pt has not had ob care. Will get a growth scan done today and a 1 hour GTT. RTC 2 weeks. Flowsheet Date 11/25/2017 Chandler Score Blood Edema Fundus Height Fundus Units Glucose Ketones Leukocytes Nitrite Labor Signs Protein Cervic Dilation Cervic Effacement Cervic Station none 33 cm none none neg Type Weight in lbs Pre/Post Dialysis Refused 214.049871971753 BP Diastolic BP Location Tested BP Systolic BP Type 68 148 sitting 68 118 sitting Fetus Heart Rate Present A 132 Present Fetus Movement A Yes Comments No complaints.Rhogam done @ 8 wks in L&D & today. Discussed borderline GDM on 3 hr GTT. Avoid excess sugars in diet. 32 week labs today RTC 2 weeks. Flowsheet Date 12/09/2017 Chandler Score Blood Edema Fundus Height Fundus Units Glucose Ketones Leukocytes Nitrite Labor Signs Protein Cervic Dilation Cervic Effacement Cervic Station none 37 cm none Pressure neg 0cm 0% - 4 Type Weight in lbs Pre/Post Dialysis Refused 217.582598722993 BP Diastolic BP Location Tested BP Systolic BP Type 84 118 sitting Fetus Heart Rate Present A 140 Present Fetus Movement A Yes Comments Pt C/O toothache x1 week. Pt does not plan on going to the dentist due to insurance not covering it. Will try Ceftin. If sx persist or worsen, she will have to see a dentist. Pt is having vaginal pressure. No cx change on exam today. RTC 2 weeks. Flowsheet Date 12/23/2017 Chandler Score Blood Edema Fundus Height Fundus Units Glucose Ketones Leukocytes Nitrite Labor Signs Protein Cervic Dilation Cervic Effacement Cervic Station trace 39 cm none none neg 0cm 0% -4 Type Weight in lbs Pre/Post Dialysis Refused 218.241361933849 BP Diastolic BP Location Tested BP Systolic BP Type Fetus Heart Rate Present A 148 Present Fetus Movement A Yes Comments Pt has no complaints today. GBS done today. RTC 1 week. Flowsheet Date 01/07/2018 Chandler Score Blood Edema Fundus Height Fundus Units Glucose Ketones Leukocytes Nitrite Labor Signs Protein Cervic Dilation Cervic Effacement Cervic Station Type Weight in lbs Pre/Post Dialysis Refused BP Diastolic BP Location Tested BP Systolic BP Type 80 124 sitting Fetus Heart Rate Present Fetus Movement Comments Menstrual History Last Menstrual Date Menses Monthly On Bcp Conception Prior Menses Frequency Hcg Plus Date Menarche Onset Age 1004/17/2017 Genetic Screening And Infection History Question Response Note Advanced Maternal Age(>35)1st false or Mediterranean Decent(Thalassemia) false Neural Tube Defect (Meningom yelocele, Spina Bifida, Or Anencephaly) false Congenital Heart Defect true Pt has M ADMISSIONS ADVISOR & Heart murmur Down Syndrome(Trisomy 21) false Shayy,Salvador-Sachs, [place] Disease false Sickle Cell Disease Or Trait false Hemophilia Or Other Blood Disorders false Muscular Dystrophy false Cystic Fibrosis false G[place]'s Chorea false Maternal Metabolic Disorder (eg, Type 1 Diabetes, PKU) false Live With Someone With TB Or Exposed To TB false Patient Or Partner Has History Of Genital Herpes false Other true HSV I on mouth Personal or Family Genetic Disorders false Advanced Maternal Age(>35)subsequent t rue [employer]regation Decent false BRCA 1 or 2 Mutation false Do you own cats? true Fragile X Syndrome or Mental Retardation false Genetic or Chromosomal Disorder false Personal history of chicken pox or vaccine in the past true None false Delivery Information Delivery Date Delivery Type Labor Anesthesia Weeks Gestation Incision Type Labor Labor Length Hrs Delivered By Post Complications Tubal Sterilization Discharge Date Comments 8 Sponta neous Regional-Ep idural 36.1 true [place] None 12/30/2017 Discharge Information Feeding Method Contraceptive Method Maternal HG B and HCT Levels Combination
--- OUTSIDE RECORDS SUMMARY | 2024-07-31 18:35 | XMS_ITS | Continuity of Care Document ---
Author Organization [facility] [place] Address [address] [place] [address] Phone Care Team Providers Care Gettering Filament Machine Operator Name Role Phone Unavailable Unavailable Unavailable Advance Directives Directive Yes / No Effective Date File Name No Information Encounters Encounter Description Practice Location Reason(s) For Visit Diagnoses Date Provider Providers Copied on Encounter [facility], [address], [place], [place], [id number], [place] tel:[phone] [facility] No Information No Information Referring Provider: TALISHA MARTINEZ, [address] [facility] [address], [place], [address]. tel:[phone] Family History Family Member Type Diagnosis Age At Onset No Information Payers Payer name Insurance type Covered democrat ID Authoriza kishan(s) [employer] JOSE FRANCISCO ITY [id number] Social History Type Description Quantity Date Captured Comments Sex Female Smoking Status No Information Chief Complaint And Reason For Visit No Information History Of Present Illness Encounter Date Complaint History Of Prese nt Illness No Information Instructions Date Instruction Additional Infor mation No Information Assessments Type Assessment Date No Information
--- OUTSIDE RECORDS SUMMARY | 2024-07-31 18:38 | XMS_ITS | Continuity of Care Document ---
Author Organization [facility] [place] Address [address] [place] [address] Phone Care Team Providers Care Patent Lawyer Name Role Phone Unavailable Unavailable Unavailable Advance Directives Directive Yes / No Effective Date File Name No Information Encounters Encounter Description Practice Location Reason(s) For Visit Diagnoses Date Provider Providers Copied on Encounter [facility], [address], [place], [place], [id number], [place] tel:[phone] [facility] No Information No Information Referring Provider: TALISHA MARTINEZ, [address] [facility] [address], [place], [address]. tel:[phone] Family History Family Member Type Diagnosis Age At Onset No Information Payers Payer name Insurance type Covered constitution party ID Authoriza kishan(s) [employer] JOSE FRANCISCO ITY [id number] Social History Type Description Quantity Date Captured Comments Sex Female Smoking Status No Information Chief Complaint And Reason For Visit No Information History Of Present Illness Encounter Date Complaint History Of Prese nt Illness No Information Instructions Date Instruction Additional Infor mation No Information Assessments Type Assessment Date No Information
[2024-07-31 19:19] VITALS: BP 133/66; PULSE 80; RESP 16; TEMP 36.5; O2SAT 98
--- NOTE | 2024-07-31 19:39 | ED.URI ---
HPI - URI/Sore Throat General Chief Complaint: Upper Respiratory Infection Stated Complaint: Shortness fo Breath/Fever/Cough Time Seen by Provider: 07/31/24 19:39 Source: patient Mode of arrival: ambulatory Limitations: no limitations History of Present Illness HPI Narrative: 44-year-old female presents with complaint of cough, congestion, fatigue, sore throat, fever starting yesterday morning. Patient's son tested positive for influenza A. Patient denies nausea vomiting diarrhea. Taking dows-ubt-grampnc medications to treat symptoms. No chest pain or shortness of breath. All systems reviewed and negative except as noted above. Related Data Home Medications ?Medication ?Instructions ?Recorded ?Confirmed ?Last Taken ?Type duloxetine 30 mg capsule,delayed 30 mg PO HS 04/04/24 04/04/24 04/13/24 History release Allergies Allergy/AdvReac Type Severity Reaction Status Date / Time Penicillins AdvReac Unknown Fever Verified 05/24/24 07:55 Review of Systems Review of Systems: CONSTITUTIONAL: reports fever, chills, or sweats. EYES: Denies visual changes, redness, or discharge. ENT: Reports rhinorrhea, congestion, sore throat. Denies otalgia. CARDIOVASCULAR: Denies chest pain, palpitations, or edema. RESPIRATORY: reports cough. Denies dyspnea. GASTROINTESTINAL: Denies abdominal pain, nausea, vomiting, or diarrhea. GENITOURINARY: Denies dysuria or hematuria. SKIN: Denies rash or itching. MUSCULOSKELETAL: Denies back pain, joint pain, or myalgia. NEUROLOGIC: Denies headache, numbness, or weakness. PSYCHIATRIC: Denies anxiety or depression. All other systems reviewed are negative, except as documented in HPI. [facility] Past Medical History Medical History Marijuana abuse Smoker Fracture, tooth Lumbago GERD (gastroesophageal reflux disease) Migraine Hx of sleep apnea Schizoaffective disorder Bipolar 2 disorder GERD (gastroesophageal reflux disease) Asthma History of bipolar disorder (~05/2019) Encounter for long-term (current) use of other medications Family history of osteoporosis Anxiety Headache, migraine Depression (~05/2019) Allergies Surgical History Surgical History H/O laparoscopy H/O: History of tonsillectomy Family History Family History Mother , motorcycle accident No problems noted. Grandparent , bladder infection No problems noted. Grandparent No problems noted. Grandparent Cerebrovascular accident Social History Social History Smoking packs per day: 0.5 Smoking cigarettes per day: 10.0 Years smoked: 15 Smoking pack-years: 7.50 Smoking status: Current every day smoker Tobacco type: cigarettes Alcohol intake: current Drinks per week: 2 Substance use: unknown Substance use type: marijuana Lack of Transportation: No Lack of Food: Sometimes True Current Housing: I Have Housing Concerned About Future Housing: YES Difficulty Paying Gas/Electric Bills: YES Difficulty Paying for Meds: YES Currently Unemployed: No Education: High School Diploma/GED Difficulty w/ Childcare or Family Care: YES Living arrangements: with family Gender identity (if verbalized by the patient): Female Spiritual care concerns: No Comments At time of signature, agree with nursing past medical, surgical, social and family history. There is no relevant family history pertinent to the presenting complaint. Exam Narrative: GENERAL: This is a well-nourished, well-developed patient, ill-appearing but in no acute distress HEAD: normocephalic, atraumatic. EYES: PERRL. Sclera clear/white. Vision is grossly intact. EARS: External ears normal, auditory canals clear and without drainage, TMs normal without perforation. Hearing grossly intact. NOSE: External nose normal with mild congestion with clear nasal drainage. Nares without redness or swelling. THROAT: Mucous membranes moist, Mild erythema without swelling or exudates. NECK: Neck supple, non-tender without lymphadenopathy, masses or thyromegaly. CARDIOVASCULAR: Regular rate and rhythm without murmurs, gallops, or rubs. RESPIRATORY: Clear to auscultation. Breath sounds equal bilaterally. No wheezes, rales, or rhonchi. SKIN: warm, Dry, intact with no suspicious lesions or rash, good texture and turgor. NEURO: awake, alert, and oriented to person, place and time. There were no obvious focal neurologic abnormalities. EXTREMITIES: No joint tenderness, effusion, or edema noted. Course Course Level of Care: Express Care Visit Vital Signs Vital signs: Vital Signs Temperature 36.5 C 07/31/24 19:19 Pulse Rate 80 07/31/24 19:19 Respiratory Rate 16 07/31/24 19:19 Blood Pressure 133/66 07/31/24 19:19 Pulse Oximetry 98 07/31/24 19:19 Oxygen Delivery Room Air 07/31/24 19:19 Temperature 36.5 C 07/31/24 19:19 Pulse Rate 80 07/31/24 19:19 Respiratory Rate 16 07/31/24 19:19 Blood Pressure 133/66 07/31/24 19:19 Pulse Oximetry 98 07/31/24 19:19 Oxygen Delivery Room Air 07/31/24 19:19 Reviewed MDM - URI/Sore Throat MDM Narrative Medical decision making narrative: negative COVID and influenza test. Influenza exposure from his son. Patient complaining That throat feels swollen. Will treat with Medrol Dosepak. Recommend kkqu-qcd-mtcorag medications to treat viral symptoms. Patient is alert, nontoxic. Vital signs stable. Patient is aware of diagnosis, understands and agrees to treatment plan. Anticipatory guidance given. Patient agrees to follow-up as directed and is aware of reasons to seek care at the emergency department. Portions of this record may have been created with voice recognition software Differential Diagnosis Differential diagnosis: Likely upper respiratory infection, sinusitis, viral infection and influenza Lab Data Labs: Lab Results 07/31/24 Range/Units 19:45 POC Influenza A Ag Negative (Negative) POC Influenza B Ag Negative (Negative) POC SARS CoV-2 Ag Negative (Negative) Discharge Plan Discharge Clinical Impression: Viral upper respiratory tract infection with cough Patient Disposition: Home, Self-Care Condition: Stable Instructions: Upper Respiratory Infection (ED) Additional Instructions: your COVID and influenza test was negative today. Your symptoms are viral and may last 10-14 days. Taking ktlk-xsb-bsrdobk medication to treat her symptoms such as DayQuil NyQuil cold and flu. Take ibuprofen every 6-8 hours as needed for pain and fever. Drink plenty water and rest. Follow-up with your primary care physician if symptoms are not improving. Patient Language: Grenadian Prescriptions: New methylprednisolone [Medrol (Marcel)] 4 mg tablets,dose pack See Rx Instructions PO .COMPLEX Qty: 21 0RF Rx Instructions: orally per package directions No Action duloxetine 30 mg capsule,delayed release(/EC) 30 mg PO HS Follow-up/Referrals: Pravin Lucas MD [Primary Care Provider] - Time of Disposition: 19:52
[2024-07-31 19:47] LABS: EDCOVIDSCREEN Negative (Negative); EDINFLUASCREEN Negative (Negative); EDINFLUBSCREEN Negative (Negative)
== END 2024-07-31 19:59 | disposition home or self-care (01) ==
PROVIDERS: Emergency Provider Nurse Practitioner Family; PCP Family Medicine
DX: J06.9 Acute upper respiratory infection, unspecified (principal); K21.9 Gastro-esophageal reflux disease without esophagitis; F20.9 Schizophrenia, unspecified; J45.909 Unspecified asthma, uncomplicated; F17.210 Nicotine dependence, cigarettes, uncomplicated; Z20.822 Contact with and (suspected) exposure to COVID-19
CPT/HCPCS: 87426; 87804; 99213; G0463

== ENCOUNTER 2025-01-04 08:01 | Emergency (ER) | payer OTHER, SELFPAY ==
--- OUTSIDE RECORDS SUMMARY | 2025-01-04 08:05 | XMS_ITS | Encounter Summary ---
Author Organization [facility] Address [address] [place] [address] Phone Care Team Providers Care Electrical Journeyman Name Role Phone Provider, None Primary Care Provider Unavailabl e Reason for Visit * Reason Comments Medication Refill Encounter Details Date Type Department Care Team (Late st Contact Info) Description 11/08/2020 Refill [facility] [place] [address] [place] [address] Lyndsey Valverde APRN, [employer] [place] [address] Medication Refill Social History Tobacco Use Types [...] structures documented in this encounter Care Teams Electrical Journeyman Relationship Specialty Start Date End Date Provider, None [place] PCP - General 10/02/20 documented as of this encounter
--- OUTSIDE RECORDS SUMMARY | 2025-01-04 08:05 | XMS_ITS | Data Portability ---
Author Organization [place] [facility] Address [address] [place] [address] Care Team Providers Care Installer Inspector Final Name Role Phone ISAC FARFAN Lab Scientist Assessment No assessment recorded. Plan of Treatment Reminders Order Date Submit Date Provider Last Modified By Organization Details Last Modified Time Details Appointments None recorded. Lab urinalysis , complete 2017 [email or web address] - [facility], [address] [address], [place], [address], 8 17:34:31 CMP, serum or plasma 2017 018 [place] [facility], [address] [address], [facility] [address], [place], [address], 8 14:31:15 lipid panel, serum 2017 [place] [facility], [address], [facility] [address], [place], [address], 8 14:31:14 CBC w/ auto diff 2017 018 [facility], [address], [facility] [address], [place], [address], 8 14:31:13 TSH, serum or plasma 2017 018 [place] [facility] - [facility], [address] [address], [facility] [address], [place], [address], 8 14:31:14 CBC w/ auto diff 2017 018 [place] [facility] - [facility], [address] [address], [facility] [address], [place], [address], 9 15:55:56 Referral None recorded. Procedures None recorded. Surgeries None recorded. Imaging None recorded. Medication Orders None recorded. Patient TargetsNo targets recorded. Patient Instructions Encounter Date Encounter Id Patient Instructions Last Modified By Organization Details Last Modified Time 01/07/2018 [id number] Discussed wound healing and activities. Will get CBC today and proceed as indicated. RTC in 4 weeks for final PP visit. Not available 01/07/2018 10:22:52 02/04/2018 [id number] Discussed wound healing and activities. RTC 3 months for annual visit. Small wound seroma drained in office today. Recommend soaking in epsom salt bath. [email or web address] Not available 02/04/2018 10:45:19 02/25/2018 [id number] Pt doing well. Discussed wound healing and activities. RTC 3 months for annual visit. [email or web address] Not available 02/25/2018 11:28:05 05/13/2018 [id number] Past medical history reviewed with patient. Current symptoms evaluated. Recommend annual mammography starting at age of 41 Annual labwork today. Pt informed lab results will be published to patient portal. All patient questions answered. RTC 1 year for annual visit. [email or web address] Not available 05/13/2018 11:19:54 08/19/2018 [id number] RTC with fever, pain or bleeding. Expect 10 days of unplanned spotting for first month. [email or web address] Not available 08/19/2018 16:03:45 Reason for Referral None Reported. Results Created Date Observation Date Name Description Value Unit Range Abnormal Flag Note LastModifiedBy Organization Detail LastModifiedTime 12/24/19 18 12/26/2017 strep tococ cus group B, cultu re, unspe cifie d speci men culture, strep B - SPECIM EN NUMBER : [id number] CULTU RE, STREP B - PREGN ARUNA SPECI MEN NUMBE R: [id number] SPECI MEN COMME NT: VGR SOURC E: VAGIN AL/RE CTAL REPOR T STATU S: FINAL FINAL REPOR T: 12/26 NO GROUP B BETA STREP TOCOC CI RECOV ERED AT 36 HOURS PRELI MINAR Y STREP . SCREE N: 12/25 No beta hemol ytic strep tococ ci isola monika at 12 hrs Testi ng Perfo rmed At: [facility] [address] [place] [address] Labor atory Dire tor: Isac quintero M.D. CLIA Numbe r [id number] [place]. [id number] Not Available Clinical [facility]ology Laboratories - Main Lab (Blood Not Drawn At This Location) Visit [employer] [facility] [place], [address], 12/26/2017 17:56:40 05/13/20 18 05/14/2018 urina lysis , compl ete color YELLOW yellow -straw Not Available [facility] - Main Lab (Blood Not Drawn At This Location) Visit [employer] [facility] [place], [address], 05/14/2018 02:35:04 05/13/20 18 05/14/2018 urina lysis , compl ete appearance CLEAR clear Not Available Clin[facility] l [facility] - Main Lab (Blood Not Drawn At This Location) Visit [employer] [facility] [place], [address], 05/14/2018 02:35:04 05/13/20 18 05/14/2018 urina lysis , compl ete specific gravity 1.009 1.005- 1.035 Not Available [facility] - Main Lab (Blood Not Drawn At This Location) Visit [employer] [facility] [place], [address], 05/14/2018 02:35:04 05/13/20 18 05/14/2018 urina lysis , compl ete leukocyte esterase NEGATI VE negati ve Not Available [facility] - Main Lab (Blood Not Drawn At This Location) Visit [employer] [facility] Location Nearest [facility] [place], [address], 05/14/2018 02:35:04 05/13/20 18 05/14/2018 urina lysis , compl ete nitrite NEGATI VE negati ve Not Available [facility] - Main Lab (Blood Not Drawn At This Location) Visit [employer] [facility] [place], [address], 05/14/2018 02:35:04 05/13/20 18 05/14/2018 urina lysis , compl ete pH 6.0 5.0-9. 0 Not Available [facility] - Main Lab (Blood Not Drawn At This Location) Visit [employer] [facility] [place], [address], 05/14/2018 02:35:04 05/13/20 18 05/14/2018 urina lysis , compl ete protein NEGATI VE negati ve Not Available [facility] - Main Lab (Blood Not Drawn At This Location) Visit [employer] [facility] [place], [address], 05/14/2018 02:35:04 05/13/20 18 05/14/2018 urina lysis , compl ete glucose NEGATI VE negati ve Not Available [facility] - Main Lab (Blood Not Drawn At This Location) Visit [employer] [facility] [place], [address], 05/14/2018 02:35:04 05/13/20 18 05/14/2018 urina lysis , compl ete ketones NEGATI VE negati ve Not Available [facility] - Main Lab (Blood Not Drawn At This Location) Visit [employer] [facility] [place], [address], 05/14/2018 02:35:04 05/13/20 18 05/14/2018 urina lysis , compl ete urobilinogen <2.0 mg/dL <=2.0 Not Available [facility] Main Lab (Blood Not Drawn At This Location) Visit [employer] [facility] [place], [address], 05/14/2018 02:35:04 05/13/20 18 05/14/2018 urina lysis , compl ete bilirubin NEGATI VE negati ve Not Available [facility] - Main Lab (Blood Not Drawn At This Location) Visit [employer] [facility] [place], [address], 05/14/2018 02:35:04 05/13/20 18 05/14/2018 urina lysis , compl ete occult blood NEGATI VE negati ve Not Available [facility] - Main Lab (Blood Not Drawn At This Location) Visit [employer] [facility] [place], [address], 05/14/2018 02:35:04 05/13/20 18 05/14/2018 urina lysis , compl ete white blood cells 0-5 /hpf 0-5 Not Available Clinic [facility] - Main Lab (Blood Not Drawn At This Location) Visit [employer] [facility] [place], [address], 05/14/2018 02:35:04 05/13/20 18 05/14/2018 urina lysis , compl ete red blood cells 0-2 /hpf 0-5 Not Available [facility] - Main Lab (Blood Not Drawn At This Location) Visit [employer] [facility] [place], [address], 05/14/2018 02:35:04 05/13/20 18 05/14/2018 urina lysis , compl ete epithelial cells 0-5 /hpf 0-10 Not Available [facility] - Main Lab (Blood Not Drawn At This Location) Visit [employer] [facility] [place], [address], 05/14/2018 02:35:04 05/13/20 18 05/14/2018 urina lysis , compl ete bacteria 1+ negati ve abnormal Testi ng Perfo rmed At: [facility] [employer] [address] [place] [address] Labor atory Dire tor: Isac quintero M.D. ZENAIDA martínez [id number] [place]. [id number] Not Available Clinical [facility] - Main Lab (Blood Not Drawn At This Location) Visit [employer] [facility] [place], [address], 05/14/2018 02:35:04 05/13/20 18 05/14/2018 CBC w/ auto diff WBC 15.0 K/uL 4.0-11 .0 high Not Available [facility] - Main Lab (Blood Not Drawn At This Location) Visit [employer] [facility] [place], [address], 05/16/2018 14:31:13 05/13/20 18 05/14/2018 CBC w/ auto diff RBC 5.12 M/uL 3.80-5 .10 high Not Available [facility] - Main Lab (Blood Not Drawn At This Location) Visit [employer] [facility] [place], [address], 05/16/2018 14:31:13 05/13/20 18 05/14/2018 CBC w/ auto diff hemoglobin 13.8 g/dL 11.5-1 5.5 Not Available [facility] - Main Lab (Blood Not Drawn At This Location) Visit [employer] [facility] [place], [address], 05/16/2018 14:31:13 05/13/20 18 05/14/2018 CBC w/ auto diff hematocrit 41.4 % 34.0-4 5.0 Not Available [facility] - Main Lab (Blood Not Drawn At This Location) Visit [employer] [facility] [place], [address], 05/16/2018 14:31:13 05/13/20 18 05/14/2018 CBC w/ auto diff MCV 80.9 fL 80.0-1 00.0 Not Available [facility] - Main Lab (Blood Not Drawn At This Location) Visit [employer] [facility] [place], [address], 05/16/2018 14:31:13 05/13/20 18 05/14/2018 CBC w/ auto diff MCH 27.0 pg 27.0-3 4.0 Not Available [facility] - Main Lab (Blood Not Drawn At This Location) Visit [employer] [facility] [place], [address], 05/16/2018 14:31:13 05/13/20 18 05/14/2018 CBC w/ auto diff MCHC 33.3 g/dL 32.0-3 5.5 Not Available [facility] - Main Lab (Blood Not Drawn At This Location) Visit [employer] [facility] [place], [address], 05/16/2018 14:31:13 05/13/20 18 05/14/2018 CBC w/ auto diff RDW 13.2 % 11.0-1 5.0 Not Available [facility] - Main Lab (Blood Not Drawn At This Location) Visit [employer] [facility] [place], [address], 05/16/2018 14:31:13 05/13/20 18 05/14/2018 CBC w/ auto diff neutrophils 72.4 % 40.0-7 4.0 Not Available [facility] - Main Lab (Blood Not Drawn At This Location) Visit [employer] [facility] [place], [address], 05/16/2018 14:31:13 05/13/20 18 05/14/2018 CBC w/ auto diff lymphocytes 21.1 % 19.0-4 8.0 Not Available [facility] - Main Lab (Blood Not Drawn At This Location) Visit [employer] [facility] [place], [address], 05/16/2018 14:31:13 05/13/20 18 05/14/2018 CBC w/ auto diff monocytes 5.4 % 4.0-13 .0 Not Available [facility] - Main Lab (Blood Not Drawn At This Location) Visit [employer] [facility] [place], [address], 05/16/2018 14:31:13 05/13/20 18 05/14/2018 CBC w/ auto diff eosinophils 0.7 % 0.0-7. 0 Not Available [facility] - Main Lab (Blood Not Drawn At This Location) Visit [employer] [facility] [place], [address], 05/16/2018 14:31:13 05/13/20 18 05/14/2018 CBC w/ auto diff basophils 0.4 % 0.0-2. 0 Not Available [facility] - Main Lab (Blood Not Drawn At This Location) Visit [employer] [facility] [place], [address], 05/16/2018 14:31:13 05/13/20 18 05/14/2018 CBC w/ auto diff platelet count 293 K/uL 130-40 0 Testi ng Perfo rmed At: [facility] [address] [place] [address] [facility] [employer] tor: Eligio Escalante r [id number] [place] [id number] Not Available [facility] - Main Lab (Blood Not Drawn At This Location) Visit [employer] [facility] [place], [address], 05/16/2018 14:31:13 05/13/20 18 05/14/2018 TSH, serum or plasm a TSH, third generation 2.420 uIU/m L 0.400- 4.100 Testi ng Perfo rmed At: [facility] [address] [place] [address] [facility] [employer] [facility] tor: Eligio Escalante r [id number] [place] [id number] Not Available [facility] - Main Lab (Blood Not Drawn At This Location) Visit [employer] [facility] [place], [address], 05/16/2018 14:31:14 05/13/20 18 05/14/2018 lipid panel , serum cholesterol 243 mg/dL <200 high Not Available [facility] - Main Lab (Blood Not Drawn At This Location) Visit [employer] [facility] [place], [address], 05/16/2018 14:31:14 05/13/20 18 05/14/2018 lipid panel , serum triglyceride s 587 mg/dL <150 high Not Available [facility] - Main Lab (Blood Not Drawn At This Location) Visit [employer] [facility] [place], [address], 05/16/2018 14:31:14 05/13/20 18 05/14/2018 lipid panel , serum HDL cholesterol 41 mg/dL >39 Not Available Clin [facility] - Main Lab (Blood Not Drawn At This Location) Visit [employer] [facility] [place], [address], 05/16/2018 14:31:14 05/13/20 18 05/14/2018 lipid panel , serum calc LDL chol NOTE mg/dL <100 UNABL E TO CALCU LATE A VALID LDL NADEGE STERO L WHEN THE TRIGL YCERI DE VALUE IS GREAT ER THAN 400 MG/DL . Not Available [facility] - Main Lab (Blood Not Drawn At This Location) Visit [employer] [facility] [place], [address], 05/16/2018 14:31:14 05/13/20 18 05/14/2018 lipid panel , serum risk ratio LDL/HDL (NOTE) ratio <3.22 UNABL E TO CALCU LATE Testi ng Perfo rmed At: [facility] [address] [place] [address] Labor atory Dire tor: Isac quintero M.D. ZENAIDA martínez [id number] [place] [id number] Not Available [facility] - Main Lab (Blood Not Drawn At This Location) Visit [employer] [facility] [place], [address], 05/16/2018 14:31:14 05/13/20 18 05/14/2018 CMP, serum or plasm a glucose 95 mg/dL 70-99 Not Available [facility] - Main Lab (Blood Not Drawn At This Location) Visit [employer] [facility] [place], [address], 05/16/2018 14:31:15 05/13/20 18 05/14/2018 CMP, serum or plasm a BUN 8 mg/dL 6-20 Not Available [facility] - Main Lab (Blood Not Drawn At This Location) Visit [employer] [facility] [place], [address], 05/16/2018 14:31:15 05/13/20 18 05/14/2018 CMP, serum or plasm a creatinine 0.76 mg/dL 0.60-1 .30 Not Available [facility] - Main Lab (Blood Not Drawn At This Location) Visit [employer] [facility] [place], [address], 05/16/2018 14:31:15 05/13/20 18 05/14/2018 CMP, serum or plasm a eGFR amer. 116 mL/mi n/1.7 3 >60 Not Available [facility] - Main Lab (Blood Not Drawn At This Location) Visit [employer] [facility] [place], [address], 05/16/2018 14:31:15 05/13/20 18 05/14/2018 CMP, serum or plasm a eGFR non- amer. 100 mL/mi n/1.7 3 >60 Not Available [facility] - Main Lab (Blood Not Drawn At This Location) Visit [employer] [facility] [place], [address], 05/16/2018 14:31:15 05/13/20 18 05/14/2018 CMP, serum or plasm a calc BUN/creat 11 ratio 6-28 Not Available Clinic al [facility] - Main Lab (Blood Not Drawn At This Location) Visit [employer] [facility] [place], [address], 05/16/2018 14:31:15 05/13/20 18 05/14/2018 CMP, serum or plasm a sodium 141 mEq/L 133-14 6 Not Available [facility] - Main Lab (Blood Not Drawn At This Location) Visit [employer] [facility] [place], [address], 05/16/2018 14:31:15 05/13/20 18 05/14/2018 CMP, serum or plasm a potassium 4.8 mEq/L 3.5-5. 4 Not Available [facility] - Main Lab (Blood Not Drawn At This Location) Visit [employer] [facility] [place], [address], 05/16/2018 14:31:15 05/13/20 18 05/14/2018 CMP, serum or plasm a chloride 102 mEq/L 95-107 Not Available [facility] - Main Lab (Blood Not Drawn At This Location) Visit [employer] [facility] [place], [address], 05/16/2018 14:31:15 05/13/20 18 05/14/2018 CMP, serum or plasm a carbon dioxide 24 mEq/L Not Available Clinic [facility] - Main Lab (Blood Not Drawn At This Location) Visit [employer] [facility] [place], [address], 05/16/2018 14:31:15 05/13/20 18 05/14/2018 CMP, serum or plasm a calcium 10.1 mg/dL 8.5-10 .5 Not Available [facility] - Main Lab (Blood Not Drawn At This Location) Visit [employer] [facility] [place], [address], 05/16/2018 14:31:15 05/13/20 18 05/14/2018 CMP, serum or plasm a protein, total 7.3 g/dL 6.1-8. 3 Not Available [facility] - Main Lab (Blood Not Drawn At This Location) Visit [employer] [facility] [place], [address], 05/16/2018 14:31:15 05/13/20 18 05/14/2018 CMP, serum or plasm a albumin 4.9 g/dL 3.5-5. 2 Not Available [facility] - Main Lab (Blood Not Drawn At This Location) Visit [employer] [facility] [place], [address], 05/16/2018 14:31:15 05/13/20 18 05/14/2018 CMP, serum or plasm a calc globulin 2.4 g/dL 1.9-3. 7 Not Available [facility] - Main Lab (Blood Not Drawn At This Location) Visit [employer] [facility] [place], [address], 05/16/2018 14:31:15 05/13/20 18 05/14/2018 CMP, serum or plasm a calc A/G ratio 2.0 ratio 1.0-2. 6 Not Available [facility] - Main Lab (Blood Not Drawn At This Location) Visit [employer] [facility] [place], [address], 05/16/2018 14:31:15 05/13/20 18 05/14/2018 CMP, serum or plasm a bilirubin, total 0.2 mg/dL <=1.2 Not Available Clinic al [facility] - Main Lab (Blood Not Drawn At This Location) Visit [employer] [facility] [place], [address], 05/16/2018 14:31:15 05/13/20 18 05/14/2018 CMP, serum or plasm a alkaline phosphatase 59 U/L 40-112 Not Available Clin [facility] Laboratories - Main Lab (Blood Not Drawn At This Location) Visit [employer] [facility] [place], [address], 05/16/2018 14:31:15 05/13/20 18 05/14/2018 CMP, serum or plasm a AST 16 U/L 9-40 Not Available [facility] - Main Lab (Blood Not Drawn At This Location) Visit [employer] [facility] [place], [address], 05/16/2018 14:31:15 05/13/20 18 05/14/2018 CMP, serum or plasm a ALT 20 U/L 5-40 Testi ng Perfo rmed At: [facility] [address] [place] [address] Labor atory [facility] tor: Eligio EscalanteMARY Calvillo tanya [id number] [place] [id number] Not Available [facility] - Main Lab (Blood Not Drawn At This Location) Visit [employer] [facility] [place], [address], 05/16/2018 14:31:15 07/20/19 19 07/20/2018 lipid panel , serum cholesterol 192 mg/dL <200 Not Available [facility] - Main Lab (Blood Not Drawn At This Location) Visit [employer] [facility] [place], [address], 07/21/2018 00:45:35 07/20/1907/20/2018 lipid panel , serum triglyceride s 179 mg/dL <150 high Not Available [facility] - Main Lab (Blood Not Drawn At This Location) Visit [employer] [facility] [place], [address], 07/21/2018 00:45:35 07/20/1907/20/2018 lipid panel , serum HDL cholesterol 38 mg/dL >39 low Not Available [facility] Laboratories - Main Lab (Blood Not Drawn At This Location) Visit [employer] [facility] [place], [address], 07/21/2018 00:45:35 07/20/1907/20/2018 lipid panel , serum calc LDL chol 118 mg/dL <100 high Not Available [facility] - Main Lab (Blood Not Drawn At This Location) Visit [employer] [facility] [place], [address], 07/21/2018 00:45:35 07/20/1907/20/2018 lipid panel , serum risk ratio LDL/HDL 3.11 ratio <3.22 Testi ng Perfo rmed At: [facility] [address] [place] [address] Labor atory [facility] tor: Isac quintero M.D. ZENAIDA martínez [id number] [place] [id number] Not Available [facility] - Main Lab (Blood Not Drawn At This Location) Visit [employer] [facility] Location [facility]arest [place], [place], [address], 07/21/2018 00:45:35 Result Notes None recorded. Problems Name Problem SNOMED Code Status Onset Date Resolution Date Notes Provider Name and Address Organization Details Recorded Time Pregnanc y 05036964 Completed 201701/07/2018 Reny Cox null, [place] [facility] 8 10:25:20 Blood glucose level - finding 217830431 Completed 2017 3 hr glucose: elevated one hour/othe rs wnl Reny [place] [facility] 8 10:25:18 Smoker 02159557 Completed 1ppd [place] [facility] 8 10:25:18 Smoker 45784874 Active 1ppd Kayy [place] [facility] 8 10:15:40 Mitral valve prolapse 915569379 Completed [place] [facility] 8 10:25:18 Heart murmur 25923102 Completed [place] [facility] 8 10:25:19 RhD negative 713454033 Completed O Negative Ren[place] [facility] 8 10:25:18 Heart murmur 39763284 Active Kayy [place] [facility] 8 10:15:40 Mitral valve prolapse 398629689 Active Kayy Cab[place] null, [place] [facility] 8 10:15:40 Late entry into care 746555039 Completed Ren[place] null, [place] [facility] 8 10:25:18 [facility] 179742530 Active 2018 Yaritza Das[place]va null, [place] [facility] 9 15:54:26 Problem Notes None recorded. Procedures Surgical History Date Name Laterality Status Provider Name and Address Organization Details Recorded Time 9 IUD Insertion completed Reny Cox [place] [facility] 08/19/2018 16:03:26 2 Section completed Kayy Cabello [place] [facility] 11/08/2017 16:58:01 4 Ceserean Section completed [place]ygriselda [place] [facility] 11/08/2017 16:57:49 Laparoscopy completed Kayy [place] [facility] 11/08/2017 16:58:11 Imaging Results None recorded. Procedure Notes None recorded. Medical Equipment None Reported. Allergies Allergen ID Allergen Name Allergen Category Reaction Reaction Severity Criticality Documentation Date Start Date Code Code System Note Provider Name and Address Organization Details Recorded Time 28021 Product containin g penicilli n (product) medicatio n dizziness headache irregular heart rate moderate severe severe Not available 11/08/20171981 60806 8001 SNOMED Kayy [place]chal, [place] - [facility] 8 16:27:22 Medications Name Sig Start Date [...] Not Available Vitals Date Recorded Body height Body mass index (BMI) Body weight Systolic And Diastolic Provider Name and Address Organization Details Last Updated DateTime 08/19/2018 160.02 cm 39.5 kg/m2 055779.1 g 120/68 mm[Hg] Yaritza Dasilva [facility] 08/19/2018 15:54:10 Date Recorded Body height Systolic And Diastolic Provider Name and Address Organization Details Last Updated DateTime 01/07/2018 160.02 cm 124/80 mm[Hg] Kayy Cabello [facility] 01/07/2018 10:18:33 Date Recorded Body mass index (BMI) Body weight Systolic And Diastolic Provider Name and Address Organization Details Last Updated DateTime 02/04/2018 36.3 kg/m2 33155.44 g 122/78 mm[Hg] Kayy Cabello [place] - O[place] 02/04/2018 10:24:52 Date Recorded Body height Provider Name an d Address Organization Details Last Updated DateTime 02/04/2018 160.02 cm Reny Brooke [facility] 02/05/20 18 10:13:10 Date Recorded Body height Body mass index (BMI) Body weight Systolic And Diastolic Provider Name and Address Organization Details Last Updated DateTime 02/25/2018 160.02 cm 37.1 kg/m2 26373.96 g 122/76 mm[Hg] Barbie Cook [facility] 02/25/2018 11:01:08 Date Recorded Body height Body mass index (BMI) Body weight Systolic And Diastolic Provider Name and Address Organization Details Last Updated DateTime 05/13/2018 160.02 cm 39.5 kg/m2 150955.1 g 110/64 mm[Hg] Barbie Cook [place] - [place] 05/13/2018 11:16:22 Social History Question Answer Notes LastModified by Organizat ion Details LastModified Time Tobacco Smoking Status Current Some Day Smoker Kayy Cabello null, [place] - [facility] 11/08/2017 16:27:59 Marital Status sehila Rangel n not available 11/08/2017 What Was The [...] Blood Transfusion Y Frequent Bladder/Kidney Infection N Hypothyroidism N Depression Y Breast Problem N Irregular Menses Y Alzheimer's [...] Reflux-GERD N Osteopenia N Cancer- Ovarian N Diabetes Y Caodaism Ancestry N Ovarian Cancer N Autoimmune Disease(Lupus,MS,RA) N Blood Disorder N Cancer [...] SNOMED-CT Code Diagnosis ICD10 Code Diagnosis Note [id number] MD GILLES Mcgee [address] [place] [address] 11/08/2017 15:35:41 11/08/2017 17:50:43 Routine care 548807450 Z34.90 Z3A.12 screening 2437 56177 Z36.0 care: multiparous, older than 35 years 771347600 O09.523 Z3A.29 [id number] MD GILLES Mcgee [facility],[address] [place] [address] 11/25/2017 13:38:54 11/25/2017 15:46:44 care: multiparous, older than 35 years 866026163 O09.523 Z3A.32 Hemorrhoids 30691251 K64 .9 Rhesus isoimmunization with problem 371817935 O36.0990 [id number] MD GILLES Mcgee [address] [address] [facility],[address] [place] [address] 12/09/2017 14:27:56 12/09/2017 15:01:35 care: multiparous, older than 35 years 631878050 O09.523 Z3A.34 Infection of tooth 59090 8007 K04.7 [id number] MD GILLES Mcgee [address] [place] [address] 12/23/2017 15:09:22 12/23/2017 15:48:30 care: multiparous, older than 35 years 036570899 O09.523 Z3A.36 [id number] [facility] [address] [facility] [place] [address] 01/07/2018 09:53:42 01/07/2018 10:38:00 care [id number] Z39.2 [id number] MD GILLES Mcgee [address] [facility],[address] [place] [address] 02/04/2018 10:09:27 02/04/2018 10:58:28 care 043603519 Z39.2 [id number] MD GILLES Mcgee [address] [place] [address] 02/25/2018 10:40:44 02/25/2018 11:35:25 care 640952246 Z39.2 [id number] MD GILLES Mcgee [address] [facility],[address] [place] [address] 05/13/2018 10:09:14 05/13/2018 11:51:05 Screening for malignant neoplasm of cervix 845335871 Z12.4 Hypercholesterolemia 136 58403 E78.00 Dysuria 71862073 R30.0 Fatigue 10935956 R53.83 [id number] MD GILLES Mcgee [address] [facility],[address] [place] [address] 08/19/2018 15:45:00 08/19/2018 16:42:45 Insertion of intrauterine contraceptive device 17460220 Z30.430 Health Concerns Section Related Observation LastModified by Organization Detai ls LastModified Time None Recorded Concern Status LastModified by Organization Details LastModified Time None Recorded Advance Directives Directive None Recorded Payers Insurance Date Sequence Insurance Name Policy Number Policy Duran Covered Member ID Duran Member ID Guarantor Name 08/19/2018 1 [place] Chacha Jean Baptiste [id number] Chacha Jean Baptiste 05/13/2018 2 [place] Chacha Jean Baptiste [id number] Chacha Jean Baptiste 09/06/2018 2 FOR LIFE ( - MEDICARE SUPPLEMENT) Chacha Jean Baptiste [id number] Chacha Jean Baptiste Notes Date Note Type Note Provider Name [...] Reproductive Health:Desired Contraception: ([place]) [place] [address], [address], [facility] - OBGYN 01/08/2018 17:43:15 02/04/2018 text/html VisitReported bypatient.Onset/Slick [...] ~ 1 [place] [address] [facility] [address], [place], [address], [facility] - OBGYN 02/10/2018 21:46:48 02/25/2018 text/html VisitReported bypatient.Onset/Slick ing:Delivery Date: (12/26/2017) Quality:Repeat LTCS; : Male , Delivering MD: [...] incision drainage- sx resolved Isac [place]fan [place] [address] [place] [address],[address], [place], [address], [facility] - OBGYN 03/05/2018 08:15:30 05/13/2018 text/html Annual HPIReport ed bypatient.Previous Preventative Services:last pap smear (10/2017 neg); Date & Result of last HPV co-testing (10/2017 neg); last colonoscopy (2012); no previous mammogram; no previous bone density Requested labs/testing:reques general health panel;declines pap smear;Patient is NOT [...] lump); [place] [address] [facility],[address], [place], [address], [facility] 05/14/2018 12:51:56 OBGyn Episode Ob Episode Information Episode Created Date Number of Fetuses Patient Bloodtype Patient rh Status Prepregnancy Weight lbs Domestic Partner Domestic Partner Phone Father Name Adolescent Counselor Status 11/09/19 18 1 CLOSED Fetus Data First Name Last Name Admitted to NICU Weight (g) Sex Living Outcome Pediatric Complications Fetus ID Race Codes Race Delivery Type 2976.47 0704 F Full Term 11332 C/S Hong Calculation Initial Hong Date Initial [...] m labor at 34 weeks. Delivered in [place]. Discharge Information Feeding Method Contraceptive Method Maternal HG B and HCT Levels Ob Episode Information Episode Created Date Number of Fetuses Patient Bloodtype Patient rh Status Prepregnancy Weight lbs Domestic Partner Domestic Partner Phone Father Name Adolescent Counselor Status 11/09/19 18 1 CLOSED Fetus Data First Name Last Name Admitted to NICU Weight (g) Sex Living Outcome Pediatric Complications Fetus ID Race Codes Race Delivery Type 3033.16 9704 F Prematur e 56412 C/S Hong Calculation Initial Hong Date Initial [...] [facility] inal 36 true Delivere d in [place] Discharge Information Feeding Method Contraceptive Method Maternal HG B and HCT Levels Ob Episode Information Episode Created Date Number of Fetuses Patient Bloodtype Patient rh Status Prepregnancy Weight lbs Domestic Partner Domestic Partner Phone Father Name Adolescent Counselor Status 11/09/19 18 1 O Negative CLOSED Fetus Data First Name Last Name Admitted to NICU Weight (g) Sex Living Outcome Pediatric Complications Fetus ID Race Codes Race Delivery Type Cadenc e Nights hade Marisol scanlon false 3090.09 55 M Prematur e Jaundice, tongue tied, 5 oz amniotic fluid removed from stomach 52467 2106-3 White C/S Problems Problem Notes Repeat c/s 01/17 @ 12:30No th yroid Problems Kitonya & ChristopherCat ownerSmokes 4-6 cig per day & marijuana use (+ 11/08, - 11/25)It's a BOY! named Velma!Borderline GDM Problem Name Start Date End Date Resolution Snomed Code Not e Late entry into care 810483721 RhD negative 413585620 O Negat margy Blood glucose level - finding 11/18/2017 798236168 3 hr glucose: elevated one hour/others wnl Mitral valve prolapse 22407798 1 Heart murmur 49312712 Smoker 11750569 1ppd Hong Calculation Initial Hong Date Initial [...] Latest Days Gestation 0 01/23/20 18 0 Pre-gwendolyn Flowsheet Flowsheet Date 11/08/2017 Chandler Score Blood Edema Fundus Height Fundus Units Glucose Ketones Leukocytes Nitrite Labor Signs Protein Cervic Dilation Cervic Effacement Cervic Station none 29 cm none neg Type Weight in lbs Pre/Post Dialysis Refused 210.886519395689 BP Diastolic BP Location Tested BP Systolic [...] Type Weight in lbs Pre/Post Dialysis Refused 214.207395745597 BP Diastolic BP Location Tested BP Systolic [...] Type Weight in lbs Pre/Post Dialysis Refused 217.103857853458 BP Diastolic BP Location Tested BP Systolic [...] Type Weight in lbs Pre/Post Dialysis Refused 218.700531378581 BP Diastolic BP Location Tested BP Systolic [...] Congenital Heart Defect true Pt has M INK BLENDER & Heart murmur Down Syndrome(Trisomy 21) false Shayy,Salvador-Sachs, Kevin Disease false Sickle Cell Disease Or Trait false Hemophilia Or Other Blood Disorders false Muscular Dystrophy false Cystic Fibrosis false Kate's Chorea false Maternal Metabolic Disorder (eg, Type 1 Diabetes, PKU) false Live With Someone With TB Or Exposed To TB false Patient Or Partner Has History Of Genital Herpes false Other true HSV I on mouth Personal or Family Genetic Disorders false Advanced Maternal Age(>35)subsequent t joel Ashkenazi Caodaism Decent false BRCA 1 or 2 Mutation [...]
--- OUTSIDE RECORDS SUMMARY | 2025-01-04 08:05 | XMS_ITS | Clinical Summary ---
Author Organization [facility] Address [address] [place] [phone] Phone Care Team Providers Care Licensed Social Worker Name Role Phone Provider, None Primary Care [...] 78 10/02/2020 8:21 AM CDT Temperature 36.6 C (97.8 F) 10/02/2020 8:21 AM CDT Respiratory Rate 24 10/02/2020 8:21 AM CDT Oxygen Saturation 98% 10/02/2020 8:21 AM CDT Inhaled Oxygen Concentration - - Weight 104.3 kg (230 lb) 10/02/2020 8:21 AM CDT Height - - Body Mass Index - - Plan of Treatment Health Maintenance Due Date Last Done Comments Hepatitis C Virus (HCV) Screening 1981 TdaP Immunization 1981 Human Papillomavirus (HPV) Immunization (1 - 3-dose series) 1996 Hepatitis B Immunization (1 of 3 - 19+ 3-dose series) 2000 Pap Smear 2002 Cervical Cancer Screening (CCS) 2011 HPV/Cotest 2011 SARS-COV-2 Immunization ( season) 2024 06/17/2021, 11/05/2020, 10/15/2020 Influenza Immunization (#1) 02/26/202510/2020, 02/23/2013, 03/29/2012 Respiratory Syncytial Virus (RSV) Immunization (Adult) (1 [...] complete this topic Insurance MEDICARE Care Teams Licensed Social Worker Relationship Specialty Start Date End Date Provider, None [place] PCP - General 10/02/20
[2025-01-04 08:07] VITALS: BP 140/97; PULSE 66; RESP 20; TEMP 36.6; O2SAT 100
--- OUTSIDE RECORDS SUMMARY | 2025-01-04 08:07 | XMS_ITS | Patient Health Record ---
Author Organization [facility] Billing Info Address [address] [place] [address] Care Team Providers Care Electroplating Technician Name Role Phone NÉSTOR HARDY Unavailable Unavailable Reason For Referral No Information Medications Medication SIG (Take, Route, Fr equency, Duration) Notes Start Date End Date Status Trazodone HCl 50 MG TAKE 1 TABLET BY KRISHAN TH EVERY DAY NIGHTLY NEEDED for 90 Active Immunizations Vaccine Route Administration Date Status Comme nts TDAP (Past vaccine of unknown type) Unknown 06/28/2016 Administered Migrated Immuni zations on 01/02/2019 Problems Problem Type SNOMED Code ICD Code Onset Dates Problem Status W/U Status Risk Notes Problem 176023892 Asthma, unspecified, unspecified status (493.90) 5 Active confirmed Problem Leukocytosis (451009155) Elevated white blood cell count, unspecified (D72.829) 9 Active confirmed Problem Hyperlipidemia (47950256) Hyperlipidemia, unspecified (E78.5) 9 Active confirmed Problem Bipolar affective disorder, current episode depression (525331241) Bipolar disorder, current episode depressed, mild or moderate severity, unspecified (F31.30) 9 Active confirmed Problem Generalized anxiety disorder (96787856) Generalized anxiety disorder (F41.1) 9 Active confirmed Problem Body mass index 30+ - obesity (590581560) Body mass index (BMI) 39.0-39.9, adult (Z68.39) 9 Active confirmed Problem Tobacco user (954715128) Tobacco use (Z72.0) 5 Active confirmed Plan Of Treatment No Information Insurance Providers Payer Name Payer Address Payer Phone Subscriber Number Group Number Insured Name Patient Relationship to Insured Coverage Start Date Coverage End Date MEDICARE [place] PART B [address] [place] NULL [id number] Chacha Jean Baptiste Self - patient is the insured 9 [id number] [place]ID [place] [address] [place], [place] [id number] Chacha Jean Baptiste Self - patient is the insured Medical (General) History Medical History History ICD Code Bipolar Hospitalizations: No prior hospitalizati ons excluding surgery/delivery. Bipolar Hospitalizations: No prior hospitalizati ons excluding surgery/delivery Surgical History Surgery Date(Month/Year) T&A, T&A 2 c sections c sections
--- OUTSIDE RECORDS SUMMARY | 2025-01-04 08:07 | XMS_ITS | Patient Health Record ---
Author Organization [facility] Address [address] [place] [address] Care Team Providers Care Soyfreeze Operator Name Role Phone Lam Gomez Unavailable [phone] Allergies No Known Allergies Reason For Referral No Information Medications Medication SIG (Take, Route, Frequency, Duration) Notes Start Date End Date Status Cyclobenzaprine HCl 10 MG Oral; Duration: 30 Days Active QUEtiapine Fumarate 200 MG 1 tablet at b edtime Oral Once a day; Duration: 30 days Active DULoxetine HCl 30 MG 1 capsule Orally On ce a day; Duration: 30 days Active DULoxetine HCl 30 MG TAKE 1 CAPSULE BY M OUTH EVERY DAY; Duration: 30 Active Pantoprazole Sodium 20 MG Oral; Duration: 90 Days Active QUEtiapine Fumarate 100 MG TAKE 1 TABLET BY MOUTH AT BEDTIME; Duration: 30 Active Immunizations Vaccine Route Administration Date Status Comme nts Pfizer Biontech Covid-19 Vac cine 2nd dose Unknown 10/15/2020 Administered Pfizer Biontech Covid-19 Vac cine 2nd dose Unknown 11/05/2020 Administered Pfizer Biontech Covid-19 Vac cine 2nd dose Unknown 06/17/2021 Administered Social History Tobacco Use: Social History Observation Description Date Details (start date - stop date) Light tobacco s moker 2001 - NA Sex Assigned At : Social History Observation Description Sex Assigned At Female Tobacco Control (Standard) Question Answer Notes Tobacco use: Light tobacco smoker When did you start smoking? 2001 AUDIT-C (Standard) Question Answer Notes Points 1 Interpretation Positive Did you have a drink contain ing alcohol in the past year? Yes How often did you have six o r more drinks on one occasion in the past year? Never (0 point) How many drinks did you have on a typical day when you were drinking in the past year? 1 or 2 drinks (0 point) How often did you have a dri nk containing alcohol in the past year? 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 Vital Signs Heart Rate 64 /min 03/17/2024 Height-cm 160.02 cm 06/29/2024 Blood pressure diastolic 81 mm Hg 03/17/2024 Weight-kg 107.5 kg 03/17/2024 Height 63.00 in 06/29/2024 Blood pressure systolic 134 mm Hg 03/17/2024 Weight 237 lbs 03/17/2024 BMI 41.98 kg/m2 03/17/2024 Encounters Encounter Location Date Provider Diagnosis [facility] [employer] [address] [id number] 03/17/2024 Lam Gomez Generalized anxiety disorder F41.1 ; Chronic post-traumatic stress disorder (PTSD) F43.12 and Anxious depression F41.8 [facility] [employer] [address] [address] 06/29/2024 Lam Gomez Generalized anxiety disorder F41.1 ; Bipolar 1 disorder F31.9 ; Chronic post-traumatic stress disorder (PTSD) F43.12 and Anxious depression F41.8 [facility] [employer] [address] [address] 03/17/2024 Lam Gomez [facility] [employer] [address] [id number] 03/27/2024 Lam Gomez Assessments Encounter Date Diagnosis (ICD Code) Assessment Notes Treatment Notes Treatment Clinical Notes Section Notes 03/17/2024 Generalized anxiety disorder (ICD-10 - F41.1) Assessment and Plan: 1. Depression and mood swings - Patient reports a history of depression, bipolar disorder, and schizoaffective disorder. Currently experiencing mood swings and depressive episodes. - Patient reports feeling useless, like a failure, and having thoughts of not wanting to wake up in the morning. - Plan: Start Duloxetine 30 mg in the evening. Reevaluate in two weeks. 2. Sleep disturbances - Patient has a history of sleep disturbances, including night terrors, possibly related to PTSD. Previously on Trazodone, but discontinued due to side effects. - Currently getting 5-6 hours of sleep with Benadryl, previously 8-9 hours with Trazodone. - Plan: Start Quetiapine 100 mg at bedtime to help with sleep. Reevaluate in two weeks. 3. PTSD - Patient reports a history of PTSD, likely related to childhood trauma and finding a friend who had committed suicide. - Patient was diagnosed with PTSD during sleep therapy as a younger patient. - Plan: Refer the patient to therapy for further evaluation and management of PTSD symptoms. 4. Auditory hallucinations - Patient reports a history of auditory hallucinations under stress. No recent episodes. - Patient also reports past visual hallucinations, particularly after the of a friend. - Plan: Monitor during follow-up appointments and address with therapy referral. 5. Medication management - Patient has been on various medications in the past, including Wellbutrin, Risperdal, Depakote, and Buspirone. Currently off Trazodone and using Benadryl for sleep. - Previously tried Quetiapine and found it helpful in reducing abrupt mood shifts. - Plan: Reintroduce Quetiapine and start Duloxetine for mood stabilization and sleep improvement. Reevaluate in two weeks. 6. Allergies and mold exposure - Patient is currently taking Benadryl for mold allergies due to a recent leak in their home. - Plan: Continue Benadryl as needed for allergy symptoms. Encourage the patient to address mold issue in their home. 7. Tooth pain - Patient reports occasional tooth pain and is taking ibuprofen for relief. - Plan: Encourage the patient to see a dentist for evaluation and treatment of the tooth issue. 8. Family history of depression and mood swings - Patient's mother had a history of depression and alcohol use. - Plan: Continue to monitor the patient's mental health and response to medications during follow-up appointments. 9. Substance use - Patient reports occasional use of marijuana from a dispensary to help with sleep. - Minimal alcohol use, reporting only two glasses this year. - Plan: Educate on risks of self-medication and encourage use of prescribed medications for sleep. Follow-up: Schedule a two-week follow-up appointment to assess the patient's response to Quetiapine and Duloxetine, as well as their overall mental health. 03/17/2024 Chronic post-traumatic stress disorder (PTSD) (ICD-10 - F43.12) Assessment and Plan: 1. Depression and mood swings - Patient reports a history of depression, bipolar disorder, and schizoaffective disorder. Currently experiencing mood swings and depressive episodes. - Patient reports feeling useless, like a failure, and having thoughts of not wanting to wake up in the morning. - Plan: Start Duloxetine 30 mg in the evening. Reevaluate in two weeks. 2. Sleep disturbances - Patient has a history of sleep disturbances, including night terrors, possibly related to PTSD. Previously on Trazodone, but discontinued due to side effects. - Currently getting 5-6 hours of sleep with Benadryl, previously 8-9 hours with Trazodone. - Plan: Start Quetiapine 100 mg at bedtime to help with sleep. Reevaluate in two weeks. 3. PTSD - Patient reports a history of PTSD, likely related to childhood trauma and finding a friend who had committed suicide. - Patient was diagnosed with PTSD during sleep therapy as a younger patient. - Plan: Refer the patient to therapy for further evaluation and management of PTSD symptoms. 4. Auditory hallucinations - Patient reports a history of auditory hallucinations under stress. No recent episodes. - Patient also reports past visual hallucinations, particularly after the of a friend. - Plan: Monitor during follow-up appointments and address with therapy referral. 5. Medication management - Patient has been on various medications in the past, including Wellbutrin, Risperdal, Depakote, and Buspirone. Currently off Trazodone and using Benadryl for sleep. - Previously tried Quetiapine and found it helpful in reducing abrupt mood shifts. - Plan: Reintroduce Quetiapine and start Duloxetine for mood stabilization and sleep improvement. Reevaluate in two weeks. 6. Allergies and mold exposure - Patient is currently taking Benadryl for mold allergies due to a recent leak in their home. - Plan: Continue Benadryl as needed for allergy symptoms. Encourage the patient to address mold issue in their home. 7. Tooth pain - Patient reports occasional tooth pain and is taking ibuprofen for relief. - Plan: Encourage the patient to see a dentist for evaluation and treatment of the tooth issue. 8. Family history of depression and mood swings - Patient's mother had a history of depression and alcohol use. - Plan: Continue to monitor the patient's mental health and response to medications during follow-up appointments. 9. Substance use - Patient reports occasional use of marijuana from a dispensary to help with sleep. - Minimal alcohol use, reporting only two glasses this year. - Plan: Educate on risks of self-medication and encourage use of prescribed medications for sleep. Follow-up: Schedule a two-week follow-up appointment to assess the patient's response to Quetiapine and Duloxetine, as well as their overall mental health. 06/29/2024 Generalized anxiety disorder (ICD-10 - F41.1) Insomnia - Assessment: Patient reports continued difficulty sleeping after trazodone use. Patient reports waking up in the middle of the night due to sounds or smells. - Plan: - Encourage non-caffeinated tea before bedtime and maintain a consistent sleep schedule. - Continue monitoring sleep quality in follow-up appointments. Auditory Hallucinations and Paranoia - Assessment: Patient experiences persistent voices and paranoia despite medication. Patient reports voices are muted and in the background, possibly familiar voices from childhood. - Plan: - Increase quetiapine dosage to 200 mg to address psychosis and paranoia. - Reevaluate in 2 months. Anxiety and Depression - Assessment: Patient reports ongoing anxiety and depression. Patient mentions being hystera-intense and full of anxiety. - Plan: - Continue duloxetine for peripheral neuropathy and its potential benefits for anxiety and depression. - Monitor patient's mental health status in follow-up appointments. Olfactory Hallucinations - Assessment: Patient reports smelling things that aren't there, leading to excessive cleaning. Patient specifically mentions smelling fire when nothing is burning. - Plan: - Monitor the impact of increased quetiapine dosage on olfactory hallucinations. - Reassess in 2 months. Post-surgical Recovery (IUD Removal) - Assessment: Patient had surgery to remove an embedded IUD in the uterine wall. - Plan: - Ensure proper healing and monitor for any complications or lingering pain. Medication Access and Adherence - Assessment: Patient faces challenges in obtaining medications due to financial and transportation issues[place] [facility] with no bus access. - Plan: - Recommend switching to [facility] for medication delivery within [place]. - Send prescription for [facility] to [facility]. - Have staff contact the patient to set up a follow-up appointment in 2 months. Coordination of Care - Assessment: Patient's primary care physician, Dr. Pravin Lucas, is cautious about prescribing sleep aids due to potential interactions with psychiatric medications. - Plan: - Maintain open communication with Dr. Lucas to ensure safe and effective treatment for the patient. 06/29/2024 Bipolar 1 disorder (ICD-10 - F31.9) Insomnia - Assessment: Patient reports continued difficulty sleeping after trazodone use. Patient reports waking up in the middle of the night due to sounds or smells. - Plan: - Encourage non-caffeinated tea before bedtime and maintain a consistent sleep schedule. - Continue monitoring sleep quality in follow-up appointments. Auditory Hallucinations and Paranoia - Assessment: Patient experiences persistent voices and paranoia despite medication. Patient reports voices are muted and in the background, possibly familiar voices from childhood. - Plan: - Increase quetiapine dosage to 200 mg to address psychosis and paranoia. - Reevaluate in 2 months. Anxiety and Depression - Assessment: Patient reports ongoing anxiety and depression. Patient mentions being hystera-intense and full of anxiety. - Plan: - Continue duloxetine for peripheral neuropathy and its potential benefits for anxiety and depression. - Monitor patient's mental health status in follow-up appointments. Olfactory Hallucinations - Assessment: Patient reports smelling things that aren't there, leading to excessive cleaning. Patient specifically mentions smelling fire when nothing is burning. - Plan: - Monitor the impact of increased quetiapine dosage on olfactory hallucinations. - Reassess in 2 months. Post-surgical Recovery (IUD Removal) - Assessment: Patient had surgery to remove an embedded IUD in the uterine wall. - Plan: - Ensure proper healing and monitor for any complications or lingering pain. Medication Access and Adherence - Assessment: Patient faces challenges in obtaining medications due to financial and transportation issues[place] [address] [place] - Plan: - Recommend switching to [facility] for medication delivery within [place]. - Send [facility] to [facility]. - Have staff contact the patient to set up a follow-up appointment in 2 months. Coordination of Care - Assessment: Patient's primary care physician, Dr. Pravin Lucas, is cautious about prescribing sleep aids due to potential interactions with psychiatric medications. - Plan: - Maintain open communication with Dr. Lucas to ensure safe and effective treatment for the patient. 06/29/2024 Chronic post-traumatic stress disorder (PTSD) (ICD-10 - F43.12) Insomnia - Assessment: Patient reports continued difficulty sleeping after trazodone use. Patient reports waking up in the middle of the night due to sounds or smells. - Plan: - Encourage non-caffeinated tea before bedtime and maintain a consistent sleep schedule. - Continue monitoring sleep quality in follow-up appointments. Auditory Hallucinations and Paranoia - Assessment: Patient experiences persistent voices and paranoia despite medication. Patient reports voices are muted and in the background, possibly familiar voices from childhood. - Plan: - Increase quetiapine dosage to 200 mg to address psychosis and paranoia. - Reevaluate in 2 months. Anxiety and Depression - Assessment: Patient reports ongoing anxiety and depression. Patient mentions being hystera-intense and full of anxiety. - Plan: - Continue duloxetine for peripheral neuropathy and its potential benefits for anxiety and depression. - Monitor patient's mental health status in follow-up appointments. Olfactory Hallucinations - Assessment: Patient reports smelling things that aren't there, leading to excessive cleaning. Patient specifically mentions smelling fire when nothing is burning. - Plan: - Monitor the impact of increased quetiapine dosage on olfactory hallucinations. - Reassess in 2 months. Post-surgical Recovery (IUD Removal) - Assessment: Patient had surgery to remove an embedded IUD in the uterine wall. - Plan: - Ensure proper healing and monitor for any complications or lingering pain. Medication Access and Adherence - Assessment: Patient faces challenges in obtaining medications due to financial and transportation issues. [place] [address] [place]. - Plan: - Recommend switching to [facility] for medication delivery within [place]. - [facility]. - Have staff contact the patient to set up a follow-up appointment in 2 months. Coordination of Care - Assessment: Patient's primary care physician, Dr. Pravin Lucas, is cautious about prescribing sleep aids due to potential interactions with psychiatric medications. - Plan: - Maintain open communication with Dr. Lucas to ensure safe and effective treatment for the patient. 03/17/2024 Anxious depression (ICD-10 - F41.8) Assessment and Plan: 1. Depression and mood swings - Patient reports a history of depression, bipolar disorder, and schizoaffective disorder. Currently experiencing mood swings and depressive episodes. - Patient reports feeling useless, like a failure, and having thoughts of not wanting to wake up in the morning. - Plan: Start Duloxetine 30 mg in the evening. Reevaluate in two weeks. 2. Sleep disturbances - Patient has a history of sleep disturbances, including night terrors, possibly related to PTSD. Previously on Trazodone, but discontinued due to side effects. - Currently getting 5-6 hours of sleep with Benadryl, previously 8-9 hours with Trazodone. - Plan: Start Quetiapine 100 mg at bedtime to help with sleep. Reevaluate in two weeks. 3. PTSD - Patient reports a history of PTSD, likely related to childhood trauma and finding a friend who had committed suicide. - Patient was diagnosed with PTSD during sleep therapy as a younger patient. - Plan: Refer the patient to therapy for further evaluation and management of PTSD symptoms. 4. Auditory hallucinations - Patient reports a history of auditory hallucinations under stress. No recent episodes. - Patient also reports past visual hallucinations, particularly after the of a friend. - Plan: Monitor during follow-up appointments and address with therapy referral. 5. Medication management - Patient has been on various medications in the past, including Wellbutrin, Risperdal, Depakote, and Buspirone. Currently off Trazodone and using Benadryl for sleep. - Previously tried Quetiapine and found it helpful in reducing abrupt mood shifts. - Plan: Reintroduce Quetiapine and start Duloxetine for mood stabilization and sleep improvement. Reevaluate in two weeks. 6. Allergies and mold exposure - Patient is currently taking Benadryl for mold allergies due to a recent leak in their home. - Plan: Continue Benadryl as needed for allergy symptoms. Encourage the patient to address mold issue in their home. 7. Tooth pain - Patient reports occasional tooth pain and is taking ibuprofen for relief. - Plan: Encourage the patient to see a dentist for evaluation and treatment of the tooth issue. 8. Family history of depression and mood swings - Patient's mother had a history of depression and alcohol use. - Plan: Continue to monitor the patient's mental health and response to medications during follow-up appointments. 9. Substance use - Patient reports occasional use of marijuana from a dispensary to help with sleep. - Minimal alcohol use, reporting only two glasses this year. - Plan: Educate on risks of self-medication and encourage use of prescribed medications for sleep. Follow-up: Schedule a two-week follow-up appointment to assess the patient's response to Quetiapine and Duloxetine, as well as their overall mental health. 06/29/2024 Anxious depression (ICD-10 - F41.8) Insomnia - Assessment: Patient reports continued difficulty sleeping after trazodone use. Patient reports waking up in the middle of the night due to sounds or smells. - Plan: - Encourage non-caffeinated tea before bedtime and maintain a consistent sleep schedule. - Continue monitoring sleep quality in follow-up appointments. Auditory Hallucinations and Paranoia - Assessment: Patient experiences persistent voices and paranoia despite medication. Patient reports voices are muted and in the background, possibly familiar voices from childhood. - Plan: - Increase quetiapine dosage to 200 mg to address psychosis and paranoia. - Reevaluate in 2 months. Anxiety and Depression - Assessment: Patient reports ongoing anxiety and depression. Patient mentions being hystera-intense and full of anxiety. - Plan: - Continue duloxetine for peripheral neuropathy and its potential benefits for anxiety and depression. - Monitor patient's mental health status in follow-up appointments. Olfactory Hallucinations - Assessment: Patient reports smelling things that aren't there, leading to excessive cleaning. Patient specifically mentions smelling fire when nothing is burning. - Plan: - Monitor the impact of increased quetiapine dosage on olfactory hallucinations. - Reassess in 2 months. Post-surgical Recovery (IUD Removal) - Assessment: Patient had surgery to remove an embedded IUD in the uterine wall. - Plan: - Ensure proper healing and monitor for any complications or lingering pain. Medication Access and Adherence - Assessment: Patient faces challenges in obtaining medications due to financial and transportation issues[place] [address] [place]. - Plan: - Recommend switching to [facility] for medication delivery within [place]. - Send prescription for quetiapine to [facility]. - Have staff contact the patient to set up a follow-up appointment in 2 months. Coordination of Care - Assessment: Patient's primary care physician, Dr. Pravin Lucas, is cautious about prescribing sleep aids due to potential interactions with psychiatric medications. - Plan: - Maintain open communication with Dr. Lucas to ensure safe and effective treatment for the patient. Plan Of Treatment No Information Insurance Providers Payer Name Payer Address Payer Phone Subscriber Number Group Number Insured Name Patient Relationship to Insured Coverage Start Date Coverage End Date Medicare-I l Medicare [address] [place] [address] [id number] ZAYDA PAGE Self - patient is the insured Medical (General) History Medical History History ICD Code Problems: Bipolar II disorder Generalized anxiety disorder Past Psychiatric History: An xiety Disorder,Panic Disorder,Phobias,PTSD,Psychotic Episode,Schizoaffective Disorder,Major Depressive Episode,Bipolar Disorder undefined abdominal aortic aneurysm: No atrial fibrillation: No chronic fatigue syndrome: No essential tremor: No hyperlipidemia: No hypertension: No Parkinson's disease: No restless leg syndrome: No stroke: No subdural hematoma: No type 1 diabetes mellitus: No type 2 diabetes mellitus: No vitamin B12 deficiency: No vitamin D deficiency: Yes Surgical History Surgery Date(Month/Year) Tonsilectomy/adenoids 11/27/1985 Hospitalization History Reason Date(Month/Year) Psychiatric hospitalization after she found her friend hanging in basement. 2005
--- NOTE | 2025-01-04 08:18 | ED_ITS ---
HPI - General Adult General Stated complaint: wide spread pain, nausea Source: patient Mode of arrival: ambulatory Limitations: no limitations History of Present Illness HPI narrative: 44-year-old female with a history of bipolar disorder, schizoaffective disorder and neuropathy of feet presented for complaint of pain in multiple locations. Endorses epigastric pain, nausea, vomiting, reflux, diarrhea, constipation. Onset 4 days. Says she vomited last night and this morning. LBM 4 days. Says throughout the week while at work she rated her pain 10/10, does not completely resolve. Pain is sharp and burning throughout abdomen, worse when standing for longer than 1 hour. History of abdominal laparoscopy and . Patient took [place] at onset with no relief. pt also reports right sided neck electric pain radiating into ear and into chest, mid lower back pain, and Also says chronic pain in feet has worsened x4 days. Took ibuprofen. Related Data Home Medications ?Medication ?Instructions ?Recorded ?Confirmed ?Last Taken ?Type No Home Medications 01/04/25 01/04/25 Unknown History Allergies Allergy/AdvReac Type Severity Reaction Status Date / Time Penicillins AdvReac Unknown Fever Verified 01/04/25 08:06 Review of Systems Review of Systems: CONSTITUTIONAL: Denies body aches, fever, reports chills, sweats. EYES: Denies visual changes, redness, or discharge. ENT: Denies rhinorrhea, congestion, sore throat, or otalgia. CARDIOVASCULAR: Denies chest pain, palpitations, or edema. RESPIRATORY: Denies cough or dyspnea. GASTROINTESTINAL: reports abdominal pain, nausea, vomiting, diarrhea. GENITOURINARY: Denies dysuria or hematuria. SKIN: Denies rash, or wounds. MUSCULOSKELETAL: reports back pain, joint pain, or myalgia. NEUROLOGIC: reports headache, and off balance at times. denies numbness, tingling, or weakness. All systems reviewed & are unremarkable except as noted in HPI and below PMFSH Past Medical History Medical History Marijuana abuse Smoker Fracture, tooth Lumbago GERD (gastroesophageal reflux disease) Migraine Hx of sleep apnea Schizoaffective disorder Bipolar 2 disorder GERD (gastroesophageal reflux disease) Asthma History of bipolar disorder (~05/2019) Encounter for long-term (current) use of other medications Family history of osteoporosis Anxiety Headache, migraine Depression (~05/2019) Allergies Surgical History Surgical History H/O laparoscopy H/O: History of tonsillectomy Family History Family History Mother , motorcycle accident No problems noted. Grandparent , bladder infection No problems noted. Grandparent No problems noted. Grandparent Cerebrovascular accident Social History Social History Smoking packs per day: 0.5 Smoking cigarettes per day: 10.0 Years smoked: 15 Smoking pack-years: 7.50 Smoking status: Current every day smoker Tobacco type: cigarettes Alcohol intake: current Drinks per week: 2 Substance use: unknown Substance use type: marijuana Lack of Transportation: No Lack of Food: Sometimes True Current Housing: I Have Housing Concerned About Future Housing: YES Difficulty Paying Gas/Electric Bills: YES Difficulty Paying for Meds: YES Currently Unemployed: No Education: High School Diploma/GED Difficulty w/ Childcare or Family Care: YES Living arrangements: with family Gender identity (if verbalized by the patient): Female Spiritual care concerns: No Comments At time of signature, I have reviewed and agree with nursing past medical, surgical, social and family history unless otherwise noted. Please see nursing chart for further information. There is no relevant family history pertinent to the presenting complaint Exam Narrative: GENERAL: Well-appearing HEAD: Normocephalic, atraumatic. EYES: EOMI. ENT: Mucous membranes pink and moist. No rhinorrhea. TMs normal bilaterally. NECK: Normal AROM. CHEST: No respiratory distress. Clear to auscultation. HEART: Regular rate and rhythm. Normal peripheral pulses. ABDOMEN: Tender to epigastric area. Soft, nondistended, normal active bowel sounds. no rigidity, guarding, or masses. Body habitus limits exam. MUSCULOSKELETAL: No bony tenderness. EXTREMITIES: Normal range of motion. No edema. SKIN: Warm, dry, no rash. Capillary refill normal. Normal skin turgor. NEURO: No focal deficits. Alert and oriented x3. Gait steady. PSYCH: Tearful throughout encounter, anxious Course Course Emergency Course: Patient is aware of diagnosis, understands and agrees to treatment plan. Anticipatory guidance given. Patient agrees to follow-up as directed and is aware of reasons to seek care at the emergency department. Portions of this record may have been created with voice recognition software Level of Care: Express Care Visit Transfer Transfered to: [place] Transportation: Other ( Private vehicle) Transfer rationale: Pt is agreeable to transfer. Requests transfer to [facility] via private vehicle. Risks of transportation reviewed with pt including injury, worsening of condition and . v/u. Report called to hospital, spoke with Dr Nathan, accepting physician. Pt is in stable condition at time of transfer. Advised to remain NPO and go directly to the hospital. Medical Decision Making MDM Narrative Medical decision making narrative: Discussed physical exam findings, multiple locations of pain with reports of n/v/d, constipation, and reflux. Tender to epigastric. Advised ER transfer. Differential Diagnosis Differential Diagnosis: GERD, PUD, gastritis, pancreatitis, gallbladder disease, hepatitis, acute TN, pericarditis, aortic dissection, pneumonia, pyelonephritis, bowel obstruction, PE, ingested foreign body Vital Signs Vital Signs: reviewed Discharge Plan Discharge Clinical Impression: Abdominal pain Qualifiers: Abdominal location: epigastric Qualified Code(s): R10.13 - Epigastric pain Patient Disposition: Acute Care Hospital Condition: Stable Instructions: Antibiotic Form Patient Language: Greek Prescriptions: No Action No Home Medications Follow-up/Referrals: Pravin Lucas MD [Primary Care Provider] - Time of Disposition: 08:47
== END 2025-01-04 08:50 | disposition short-term general hospital (02) ==
PROVIDERS: Emergency Provider Nurse Practitioner Family; PCP Family Medicine
DX: R10.13 Epigastric pain (principal); F17.210 Nicotine dependence, cigarettes, uncomplicated; K21.9 Gastro-esophageal reflux disease without esophagitis; J45.909 Unspecified asthma, uncomplicated
CPT/HCPCS: 99212; G0463

== ENCOUNTER 2025-01-04 10:17 | Emergency (ER) | payer MEDICARE, OTHER, SELFPAY ==
--- NOTE | ~2025-01-04 | CT_ITS ---
EXAM: CT lumbar spine wo con - 01/04/2025 13:40 CDT History: 44 years old Female with Lower back pain Comparison None Technique Thin helical images obtained without intravenous contrast according to standard protocol. Coronal an d sagittal reformatted images are provided. Findings No fracture or gross subluxation is appreciated. Alignment is satisfactory. No intraspinal or paraspinal mass or hematoma appreciated. No gross mass or adenopathy identified, considering lack of IV contrast for this exam. Impression: 1. No acute abnormality of the lumbar spine detected by CT. Reviewed, dictated and finalized at location A. Impression: 1. No acute abnormality of the lumbar spine detected by CT.
--- NOTE | ~2025-01-04 | XR_ITS ---
EXAM/PROCEDURE: XR chest 1V portable - 01/04/2025 13:15 CDT HISTORY: 44 years old Female with Flu like symptoms TECHNIQUE: AP view(s) of the chest. COMPARISON: None available. FINDINGS: LUNGS/ PLEURA: No focal consolidation. No appreciable pneumothorax or large pleural effusion. HEART/ MEDIASTINUM: Heart appears normal in size. BONES: No acute osseous abnormality. OTHER: Visualized upper abdomen is unremarkable. IMPRESSION: No acute process. Reviewed, dictated and finalized at location A. IMPRESSION: No acute process.
[2025-01-04 10:21] VITALS: BP 126/92; PULSE 79; RESP 16; TEMP 36.6; O2SAT 100
--- OUTSIDE RECORDS SUMMARY | 2025-01-04 10:22 | XMS_ITS | Encounter Summary ---
Author Organization [facility] Address [address] [place] [address] Phone Care Team Providers Care Machine Design Teacher Name Role Phone Provider, None Primary Care Provider Unavailabl e Reason for Visit * Reason Comments Medication Refill Encounter Details Date Type Department Care Team (Late st Contact Info) Description 11/08/2020 Refill [facility] [place] [address] [place] [address] Lyndsey Valverde APRN, MARKET RESEARCH ASSISTANT [address] [place] [address] Medication Refill Social History Tobacco Use Types [...] structures documented in this encounter Care Teams Machine Design Teacher Relationship Specialty Start Date End Date Provider, None [place] PCP - General 10/02/20 documented as of this encounter
--- OUTSIDE RECORDS SUMMARY | 2025-01-04 10:22 | XMS_ITS | Clinical Summary ---
Author Organization [facility] Address [address] [place] [phone] Phone Care Team Providers Care Parcel Post Officer Name Role Phone Provider, None Primary Care [...] complete this topic Insurance MEDICARE Care Teams Parcel Post Officer Relationship Specialty Start Date End Date Provider, None [place] PCP - General 10/02/20
--- OUTSIDE RECORDS SUMMARY | 2025-01-04 12:12 | XMS_ITS | Clinical Summary ---
Author Organization [facility] Address [address] [place] [phone] Phone Care Team Providers Care Top Frame Fitter Name Role Phone Provider, None Primary Care [...] complete this topic Insurance MEDICARE Care Teams Top Frame Fitter Relationship Specialty Start Date End Date Provider, None [place] PCP - General 10/02/20
--- OUTSIDE RECORDS SUMMARY | 2025-01-04 12:12 | XMS_ITS | Encounter Summary ---
Author Organization [facility] Address [address] [place] [address] Phone Care Team Providers Care Pottery Decorator Name Role Phone Provider, None Primary Care Provider Unavailabl e Reason for Visit * Reason Comments Medication Refill Encounter Details Date Type Department Care Team (Late st Contact Info) Description 11/08/2020 Refill [facility] [place] [address] [place] [address] Lyndsey Valverde APRN, VARYING EXCEPTIONALITIES TEACHER [address] [place] [address] Medication Refill Social History Tobacco Use Types [...] structures documented in this encounter Care Teams Pottery Decorator Relationship Specialty Start Date End Date Provider, None [place] PCP - General 10/02/20 documented as of this encounter
[2025-01-04 13:00] VITALS: BP 130/73; PULSE 63; RESP 11; O2SAT 100
--- NOTE | 2025-01-04 13:06 | ED.GENADULT ---
HPI - General Adult General Chief complaint: Back Pain/Injury Stated complaint: lower back/h pain Time Seen by Provider: 01/04/25 12:01 History of Present Illness HPI narrative: Patient is tearful and crying during the interview. 44-year-old female history of chronic pain depression anxiety presenting for total body pain. Patient says the pain is worse in her lower back although it is also in her feet and in her head. Patient says that her lower back has been hurting the last 4 days. She describes as a throbbing pain that is bandlike across her back and is radiating to her hips. It is constant. It is worse with movement. She has also been having subjective fevers nausea vomiting and diarrhea during this period. Patient has a history of chronic foot pain likely due peripheral neuropathy which he says is worse than usual. Patient denies trauma, weakness to her lower extremities. She had some urinary incontinence but does not have any lower abdominal pain urinary retention. No bowel incontinence. Patient has not taken anything for pain control. Denies sick contacts at home. Related Data Allergies Allergy/AdvReac Type Severity Reaction Status Date / Time Penicillins AdvReac Unknown Fever Verified 01/04/25 10:24 PMF Past Medical History Medical History Marijuana abuse Smoker Fracture, tooth Lumbago GERD (gastroesophageal reflux disease) Migraine Hx of sleep apnea Schizoaffective disorder Bipolar 2 disorder GERD (gastroesophageal reflux disease) Asthma History of bipolar disorder (~05/2019) Encounter for long-term (current) use of other medications Family history of osteoporosis Anxiety Headache, migraine Depression (~05/2019) Allergies Surgical History Surgical History H/O laparoscopy H/O: History of tonsillectomy Family History Family History Mother , motorcycle accident No problems noted. Grandparent , bladder infection No problems noted. Grandparent No problems noted. Grandparent Cerebrovascular accident Social History Social History Smoking packs per day: 0.5 Smoking cigarettes per day: 10.0 Years smoked: 15 Smoking pack-years: 7.50 Smoking status: Current every day smoker Tobacco type: cigarettes Alcohol intake: current Drinks per week: 2 Substance use: unknown Substance use type: marijuana Lack of Transportation: No Lack of Food: Sometimes True Current Housing: I Have Housing Concerned About Future Housing: YES Difficulty Paying Gas/Electric Bills: YES Difficulty Paying for Meds: YES Currently Unemployed: No Education: High School Diploma/GED Difficulty w/ Childcare or Family Care: YES Living arrangements: with family Gender identity (if verbalized by the patient): Female Spiritual care concerns: No Exam Narrative: APPEARANCE: Tearful and crying Head: atraumatic. EYES: EOMI, NOSE: Atraumatic NECK: Trachea midline RESPIRATORY: No increased rate of breathing CTAB CARDIOVASCULAR: RRR, no peripheral edema +2 pulses all extremities ABDOMINAL: Non-distended soft nontender MUSCULOSKELETAl: No obvious deformities NEURO: Alert. Cranial nerves 2-12 grossly intact. Sensation light touch, motor function cerebellar function intact for 4 extremities. Gait exam was normal. No lower extremity weakness no saddle anesthesia SKIN:: Warm, dry. Normal color PSYCHIATRIC: Normal affect Course Vital Signs Vital signs: Vital Signs Temperature 97.9 F 01/04/25 10:21 Pulse Rate 79 01/04/25 10:21 Respiratory Rate 16 01/04/25 10:21 Blood Pressure 126/92 H 01/04/25 10:21 Pulse Oximetry 100 01/04/25 10:21 Oxygen Delivery Room Air 01/04/25 10:21 Temperature 97.9 F 01/04/25 10:21 Pulse Rate 79 01/04/25 10:21 Respiratory Rate 16 01/04/25 10:21 Blood Pressure 126/92 H 01/04/25 10:21 Pulse Oximetry 100 01/04/25 10:21 Oxygen Delivery Room Air 01/04/25 10:21 Medical Decision Making MDM Narrative Medical decision making narrative: -Course: 44-year-old female presenting with multiple complaints although it really appears to be flu-like symptoms including sinus congestion, body aches, nausea, vomiting and subjective fevers. Patient's workup including laboratory studies, viral swabs and CT of her lumbar spine were negative. She had mentioned that she thought she had urinary dribbling a postvoid residual was obtained which was 1 mL so no concern for urinary retention due to cauda equina/spinal cord compression. Her neurologic exam is normal. Patient received fluids antiemetics and Toradol with some improvement. On re-evaluation she is resting in bed. Vital signs are stable. She is still emotionally upset but says she is feeling better. We discussed admission versus discharge the patient is comfortable going home although she has requested antiemetics and muscle relaxers which will be provided. Patient discharged with return precautions and primary care follow-up. -DDX includes but is not limited to: Viral syndrome, chronic pain syndrome stress reaction, spinal cord compression/caudaequina, Vital Signs Vital Signs: Vital Signs Temperature 97.9 F 01/04/25 10:21 Pulse Rate 79 01/04/25 10:21 Respiratory Rate 16 01/04/25 10:21 Blood Pressure 126/92 H 01/04/25 10:21 Pulse Oximetry 100 01/04/25 10:21 Oxygen Delivery Room Air 01/04/25 10:21 Temperature 97.9 F 01/04/25 10:21 Pulse Rate 79 01/04/25 10:21 Respiratory Rate 16 01/04/25 10:21 Blood Pressure 126/92 H 01/04/25 10:21 Pulse Oximetry 100 01/04/25 10:21 Oxygen Delivery Room Air 01/04/25 10:21 Lab Data 01/04/25 13:07 Labs: Lab Results 01/04/25 01/04/25 01/04/25 Range/Units 13:07 13:08 13:12 WBC 8.5 (4.5-10.0) K/mm3 RBC 4.61 (4.2-5.4) M/mm3 Hgb 13.1 (12.0-15.0) g/dL Hct 40.6 (37.0-47.0) % MCV 88.1 (80-100) fl MCH 28.4 (26-34) pg MCHC 32.3 (32-36) g/dl RDW 13.4 (11.5-14.5) % Plt Count 220 (150-375) k/mm3 MPV 8.8 (7.4-10.4) fl Immature Gran % (Auto) 2.0 H (0-0.5) % Neut % (Auto) 56.4 (45.5-73.1) % Lymph % (Auto) 32.5 (18.3-44.2) % Whiteside % (Auto) 6.6 (2.6-8.5) % Eos % (Auto) 1.8 (0-4.4) % Baso % (Auto) 0.7 (0.2-1.2) % Lymph # (Auto) 2.77 (0.9-3.2) K/mm3 Whiteside # (Auto) 0.6 (0.1-0.6) K/mm3 Eos # (Auto) 0.2 (0-0.3) K/mm3 Baso # (Auto) 0.1 (0.0-0.1) K/mm3 Abs Immat Gran (auto) 0.17 H (0.00-0.031) K/mm3 Absolute Neuts (auto) 4.8 (1.3-6.7) K/mm3 Absolute Nucleated RBC 0.000 (0.0-0.012) K/mm3 Nucleated RBC % 0.0 (0.0-0.2) % Lactic Acid Pending Magnesium 2.3 (1.6-2.3) mg/dL Lipase 31 (23-300) U/L Urine Color Yellow (Yellow) Urine Appearance Clear (Clear) Urine pH 7.0 (5.0-9.0) Ur Specific [place] 1.018 (1.001-1.035) Urine Protein Negative (Negative) mg/dL Urine Glucose (UA) Negative (Negative) mg/dL Urine Ketones Negative (Negative) mg/dL Ur Blood (Man) Negative (Negative) Urine Nitrate Negative (Negative) Urine Bilirubin Negative (Negative) Urine Urobilinogen 1.0 (<2.0) mg/dL Leukocyte Esterase Rfl Negative (Negative) YUE/UL POC Urine HCG, Qual Negative (Negative) Urine Opiates Screen Negative (Negative) Urine Methadone Screen Negative (Negative) Ur Barbiturates Screen Negative (Negative) Ur Phencyclidine Scrn Negative (Negative) Ur Amphetamine Screen Negative (Negative) U Benzodiazepines Scrn Negative (Negative) Urine Cocaine Screen Negative (Negative) U Cannabinoids Screen Positive A (Negative) Ethyl Alcohol < 10 (<10) mg/dL Influenza A (RT-PCR) Negative (Negative) Influenza B (RT-PCR) Negative (Negative) RSV (RT-PCR) Negative (Negative) SARS-CoV-2 RNA (RT-PCR) Negative (Negative) Discharge Plan Discharge Clinical Impression: Back pain, Acute viral syndrome Patient Disposition: Home Condition: Stable Instructions: Antibiotic Form, Viral Syndrome (ED) Additional Instructions: You were seen in the ED for body aches, nausea and vomiting. Your symptoms may be due to a viral illness. Please use Tylenol and muscle relaxers as needed. Please use Zofran for nausea. Please follow-up with your primary care physician next 5-7 days to ensure you are improving. If you develop any new or worsening symptoms please return to the ED for re-evaluation. Patient Language: Italian Prescriptions: New acetaminophen 500 mg tablet 1,000 mg PO TID PRN (Reason: telma) 7 Days Qty: 42 0RF ondansetron 4 mg tablet,disintegrating 4 mg PO Q8H PRN (Reason: nausea and vomiting) Qty: 30 0RF methocarbamol 750 mg tablet 1,500 mg PO TID Qty: 30 0RF Follow-up/Referrals: Pravin Lucas MD [Primary Care Provider] -
[2025-01-04 13:14] LABS: BEDSIDEPREGUCG Negative (Negative)
[2025-01-04] MEDS: SODIUM CHLORIDE 0.9% IV 1,000 ML 999 ML IV CONT (13:17)
[2025-01-04] MEDS: KETOROLAC 15 MG/ML VIAL (*BKC) IV PUSH (13:18)
[2025-01-04] MEDS: ONDANSETRON INJ 4 MG/2 ML VIAL IV PUSH (13:19)
[2025-01-04 13:20] LABS: Hematocrit 40.6 % (37.0-47.0); Hemoglobin 13.1 g/dL (12.0-15.0); Immature Granulocyte Percent A 2.0 % (0-0.5); Lymphocytes Absolute Auto 2.77 K/mm3 (0.9-3.2); Mean Corpuscular HGB Conc 32.3 g/dl (32-36); Mean Corpuscular Hemoglobin 28.4 pg (26-34); Mean Corpuscular Volume 88.1 fl (80-100); Nucleated Red Blood Cells Absolute Auto 0.000 K/mm3 (0.0-0.012); Nucleated Red Blood Cells Perc 0.0 % (0.0-0.2); Platelet Count Result 220 k/mm3 (150-375); Red Blood Count 4.61 M/mm3 (4.2-5.4); White Blood Count 8.5 K/mm3 (4.5-10.0)
[2025-01-04 13:28] LABS: Add Urine Microscopic? NO; Appearance Urine Clear (Clear); Glucose Urine UA Negative (Negative); Leukocyte Esterase Ur Negative LEU/UL (Negative); Nitrate Urine Negative (Negative); Specific Grav Ur 1.018 (1.001-1.035)
[2025-01-04 13:35] LABS: Lipase 31 U/L (23-300); Magnesium 2.3 mg/dL (1.6-2.3)
[2025-01-04 13:49] LABS: Cannabinoid Screen Urine Positive (Negative)
[2025-01-04 14:00] VITALS: BP 103/69; PULSE 53; RESP 15; O2SAT 100
[2025-01-04 14:05] LABS: Influenza A QL RT-PCR Negative (Negative); Influenza B QL RT-PCR Negative (Negative); RSV RNA, RT-PCR Negative (Negative); SARS-CoV-2 RNA PCR Negative (Negative)
[2025-01-04 15:17] VITALS: BP 114/72; PULSE 49; RESP 16; TEMP 36.6; O2SAT 99
== END 2025-01-04 15:18 | disposition home or self-care (01) ==
PROVIDERS: Emergency Provider Emergency Medicine; PCP Family Medicine
DX: B34.9 Viral infection, unspecified (principal); M54.9 Dorsalgia, unspecified; F17.210 Nicotine dependence, cigarettes, uncomplicated; F12.90 Cannabis use, unspecified, uncomplicated; Z20.822 Contact with and (suspected) exposure to COVID-19
CPT/HCPCS: 36415; 71045; 72131; 80307; 81003; 81025; 82077; 83605; 83690; 83735; 85025; 87637; 96361; 96374; 96375; 99284; J1885; J2405; J7030

== ENCOUNTER 2025-02-17 08:51 | Emergency (ER) | payer OTHER, SELFPAY ==
--- OUTSIDE RECORDS SUMMARY | 2015-01-31 04:00 | XMS_ITS | Continuity of Care Document ---
Author Organization [facility] [place] Address [address] [place] [address] Phone Care Team Providers Care Buckle Wire Inserter Name Role Phone Unavailable Unavailable Unavailable Advance Directives Directive Yes / No Effective Date File Name No Information Encounters Encounter Description Practice Location Reason(s) For Visit Diagnoses Date Provider Providers Copied on Encounter [facility], [address], [place], [place], [id number], [place] tel:[phone] [facility] No Information No Information Referring Provider: TALISHA MARTINEZ, [address] [facility] [address], [place], [address]. tel:[phone] Family History Family Member Type Diagnosis Age At Onset No Information Payers Payer name Insurance type Covered green party ID Authoriza kishan(s) [employer] [place] [id number] Social History Type Description Quantity Date Captured Comments Sex Female Smoking Status No Information Chief Complaint And Reason For Visit No Information History Of Present Illness Encounter Date Complaint History Of Prese nt Illness No Information Instructions Date Instruction Additional Infor mation No Information Assessments Type Assessment Date No Information
--- NOTE | 2025-02-17 08:59 | ED_ITS ---
HPI - Female Genitourinary General Chief complaint: Urogenital-Female Stated complaint: uti Time Seen by Provider: 02/17/25 09:15 Source: patient and RN notes reviewed Mode of arrival: ambulatory Limitations: no limitations History of Present Illness HPI Narrative: 44-year-old female presents concern for 3 day history is stabbing suprapubic pain, dysuria and low back pain. Reports fatigue. Reports she has been taking azo. Denies nausea vomiting, fever, body aches, chills. MD elicited complaint: UTI Related Data Allergies Allergy/AdvReac Type Severity Reaction Status Date / Time Penicillins AdvReac Unknown Fever Verified 01/04/25 10:24 Review of Systems Review of Systems: CONSTITUTIONAL: Denies malaise, chills, sweats, or fever. CARDIOVASCULAR: Denies chest pain, palpitations, or edema. RESPIRATORY: Denies cough or dyspnea. GASTROINTESTINAL: Denies abdominal pain, nausea, vomiting, diarrhea GENITOURINARY: Reports dysuria, frequency, urgency, suprapubic pain. Denies flank pain or hematuria. SKIN: Denies rash or itching. MUSCULOSKELETAL: Reports back pain. Denies myalgia. All systems reviewed & are unremarkable except as noted in HPI and below PMFSH Past Medical History Medical History Marijuana abuse Smoker Fracture, tooth Lumbago GERD (gastroesophageal reflux disease) Migraine Hx of sleep apnea Schizoaffective disorder Bipolar 2 disorder GERD (gastroesophageal reflux disease) Asthma History of bipolar disorder (~05/2019) Encounter for long-term (current) use of other medications Family history of osteoporosis Anxiety Headache, migraine Depression (~05/2019) Allergies Surgical History Surgical History H/O laparoscopy H/O: History of tonsillectomy Family History Family History Mother , motorcycle accident No problems noted. Grandparent , bladder infection No problems noted. Grandparent No problems noted. Grandparent Cerebrovascular accident Social History Social History Smoking packs per day: 0.5 Smoking cigarettes per day: 10.0 Years smoked: 15 Smoking pack-years: 7.50 Smoking status: Current every day smoker Tobacco type: cigarettes Alcohol intake: current Drinks per week: 2 Substance use: unknown Substance use type: marijuana Lack of Transportation: No Lack of Food: Sometimes True Current Housing: I Have Housing Concerned About Future Housing: YES Difficulty Paying Gas/Electric Bills: YES Difficulty Paying for Meds: YES Currently Unemployed: No Education: High School Diploma/GED Difficulty w/ Childcare or Family Care: YES Living arrangements: with family Gender identity (if verbalized by the patient): Female Spiritual care concerns: No Comments At time of signature, agree with nursing past medical, surgical, social and family history. There is no relevant family history pertinent to the presenting complaint Exam Narrative: GENERAL: Well-appearing, well-nourished, and in no acute distress. HEAD: Normocephalic. EYES: PERRLA, conjunctivae clear. NECK: Supple. No lymphadenopathy CHEST: Clear to auscultation. No respiratory distress. HEART: Regular rate and rhythm. ABDOMEN: Soft, nontender upon palpation, nondistended, no palpable or pulsatile masses, no guarding. No CVA tenderness SKIN: Warm, dry, no rash. NEURO: Alert and oriented x3. PSYCH: Normal mood and affect Course Course Emergency Course: Patient is aware of diagnosis, understands and agrees to treatment plan. Ant icipatory guidance given. Patient agrees to follow-up as directed and is aware of reasons to seek care at the emergency department. Portions of this record may have been created with voice recognition software Level of Care: Express Care Visit Vital Signs Vital signs: Reviewed. MDM - Female Genitourinary MDM Narrative Medical decision making narrative: Exam findings and UA show no acute concerns or changes; patient is non-toxic appearing and is in no distress. Patient is appropriate for outpatient treatment and follow-up. Differential Diagnosis Differential diagnosis: Likely urinary tract infection and cystitis Critical Care Time Critical Care Time Critical Care Time: No Discharge Plan Discharge Clinical Impression: Symptoms of urinary tract infection Patient Disposition: Home Condition: Stable Instructions: Urinary Tract Infection in Women (ED) Additional Instructions: We will send a urine culture to the lab; if the culture identifies an organism that the prescribed antibiotic will not treat, you will receive a phone call from an urgent care staff member and an appropriate antibiotic will be prescribed. -Your symptoms should begin to improve within a day of starting antibiotics. But you should finish all the antibiotic pills you get. Otherwise your infection might come back. -Also recommend: increase water intake. Tylenol/ibuprofen as needed for pain or fever -Follow-up with your primary care provider for urine recheck or seek ER visit if condition worsens with high fever, nausea, vomiting and severe back pain. Patient Language: Micronesian Prescriptions: New sulfamethoxazole-trimethoprim 800-160 mg tablet 1 tablet PO Q12H 7 Days Qty: 14 0RF No Action acetaminophen 500 mg tablet 1,000 mg PO TID PRN (Reason: telma) 7 Days Qty: 42 0RF Follow-up/Referrals: Pravin Lucas MD [Primary Care Provider, Family Practice] Time of Disposition: 09:26
--- OUTSIDE RECORDS SUMMARY | 2025-02-17 09:00 | XMS_ITS | Continuity of Care Document ---
Author Name AntonetteSandie Address [address] [place], [place] [id number] [place] [address] Organization Unknown Address [address] [place], [place] [id number] [place] [address] Medications No known medications Problems No known problems
--- OUTSIDE RECORDS SUMMARY | 2025-02-17 09:00 | XMS_ITS | Patient Health Record ---
Author Organization [facility] Address [address] [place] [address] Care Team Providers Care Senior Environmental Scientist Name Role Phone Lam Gomez Unavailable [phone] Allergies No Known Allergies Reason For Referral No Information Medications Medication SIG (Take, Route, Frequency, Duration) Notes Start Date End Date Status Cyclobenzaprine HCl 10 MG Tablet Oral; Duration: 30 Days Acti ve QUEtiapine Fumarate 200 MG Tablet 1 tablet at bedtime Oral Once a day; Duration: 30 days Active DULoxetine HCl 30 MG Capsule Delayed Release Particles 1 capsule Orally Once a day; Duration: 30 days Active DULoxetine HCl 30 MG Capsule Delayed Release Particles TAKE 1 CAPSULE BY MOUTH EVERY DAY; Duration: 30 Active Pantoprazole Sodium 20 MG Tablet Delayed Release Oral; Duration: 90 Days Active QUEtiapine Fumarate 100 MG Tablet TAKE 1 TABLET BY MOUTH AT BEDTIME; [...] History Observation Description Sex Assigned At Female Social History Miscellaneous: Social Info Question Answer Notes Safety issues: Are there any firearms in the house? No Social History Social Info Question Answer Notes Household: Marital Status: Number of Adults in household: 2 Number of Children in Household: 2 Level of Education: Not Finished College Drug/Alcohol: Social Info Question Answer Notes Drugs Have you used drugs other than those for medical reasons in the past 12 months? Yes Methamphetamine? No Crack? No LSD? No Ecstacy? No Prescription opiates? No Marijuana? Yes Ketamine? No PCP? No Is there a minor (18 years or younger) at risk at home? No Are you still using? Yes Do you want treatment? No AUDIT-C (Standard) Points 1 Interpretation Positive Did you have a drink containing alcohol in the p ast year? Yes How often did you have six or more drinks on one occasion in the past year? Never (0 point) How many drinks did you have on a typical day when you were drinking in the past year? 1 or 2 drinks (0 point) How often did you have a drink containing alcohol in the past year? Monthly or less (1 point) Tobacco Use: Social Info Question Answer Notes Tobacco Control (Standard) Tobacco use: Light tobacco smoker When did you start smoking? 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 Problems Problem Type SNOMED Code ICD Code Onset Dates Problem Status W/U Status Risk Notes Problem Bipolar II disorder (12473996) Bipolar II disorder (F31.81) 2 Active confirmed Problem Generalized anxiety disorder (11920922) Generalized anxiety disorder (F41.1) 2 Active confirmed Problem Posttraumatic stress disorder (05480079) Chronic post-traumatic stress disorder (PTSD) (F43.12) Active confirmed Problem Bipolar 1 disorder (385525873) Bipolar 1 disorder (F31.9) Active confirmed Problem Anxiety depression (671734228) 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 Vital Signs Heart Rate 64 /min 03/17/2024 Height-cm 160.02 cm 06/29/2024 Blood pressure diastolic 81 mm Hg 03/17/2024 Weight-kg 107.5 kg 03/17/2024 Height 63.00 in 06/29/2024 Blood pressure systolic 134 mm Hg 03/17/2024 Weight 237 lbs 03/17/2024 BMI 41.98 kg/m2 03/17/2024 Encounters Encounter Location Date Provider Diagnosis [facility] [address] [address] 03/17/2024 Lam Gomez Generalized anxiety disorder F41.1 ; Chronic post-traumatic stress disorder (PTSD) F43.12 and Anxious depression F41.8 [facility] [address] [place] [address] 06/29/2024 Lam Gomez Generalized anxiety disorder F41.1 ; Bipolar 1 disorder F31.9 ; Chronic post-traumatic stress disorder (PTSD) F43.12 and Anxious depression F41.8 [facility] [address] [place] [address] 03/17/2024 Lam Gomez [facility] [address] [place] [address] 03/27/2024 Lam Gomez Assessments Encounter Date Diagnosis [...] [place]. [place] [address] with [place] bus access. - Plan: - Recommend switching to [facility] for medication delivery within [place]. - [facility] [...] [place] [facility] with no bus access. - Plan: - Recommend switching to [facility] for medication delivery within [place]. - Send prescription for quetiapine to [facility]. - Have staff contact the patient [...] Patient [place] [facility] with no bus access. - Plan: - Recommend switching to [facility] for medication delivery within [place]. - [facility] [...] Patient [place] [facility] with no bus access. - Plan: - Recommend switching to [facility] for medication delivery within [place]. - [facility] [...] Date Medicare-I l Medicare [address] [place] [address] [id number] ZAYDA PAGE Self - patient is the [...]
--- OUTSIDE RECORDS SUMMARY | 2025-02-17 09:00 | XMS_ITS | Encounter Summary ---
Author Organization [facility] Address [address] [place] [address] Phone Care Team Providers Care Manufacturing Advisor Name Role Phone Provider, None Primary Care Provider Unavailabl e Reason for Visit * Reason Comments Medication Refill Encounter Details Date Type Department Care Team (Late st Contact Info) Description 11/08/2020 Refill [facility] [place] [address] [place] [address] Lyndsey Valverde APRN, IRON MINER [address] [place] [address] Medication Refill Social History Tobacco Use Types [...] structures documented in this encounter Care Teams Manufacturing Advisor Relationship Specialty Start Date End Date Provider, None [place] PCP - General 10/02/20 documented as of this encounter
--- OUTSIDE RECORDS SUMMARY | 2025-02-17 09:00 | XMS_ITS | Clinical Summary ---
Author Organization [facility] Address [address] [place] [phone] Phone Care Team Providers Care Principal Scientist Name Role Phone Provider, None Primary Care [...] 19+ 3-dose series) 2000 Pap Smear 2002 Human Papillomavirus (HPV) Immunization (1 - 3-dose SCDM series) 2008 Cervical Cancer Screening (CCS) 2011 HPV/Cotest 2011 [...] complete this topic Insurance MEDICARE Care Teams Principal Scientist Relationship Specialty Start Date End Date Provider, None [place] PCP - General 10/02/20
[2025-02-17 09:02] VITALS: BP 127/61; PULSE 63; RESP 20; TEMP 36.5; O2SAT 100
== END 2025-02-17 09:29 | disposition home or self-care (01) ==
PROVIDERS: Emergency Provider Nurse Practitioner; PCP Family Medicine
DX: R30.0 Dysuria (principal); R10.30 Lower abdominal pain, unspecified; M54.50 Low back pain, unspecified; K21.9 Gastro-esophageal reflux disease without esophagitis; J45.909 Unspecified asthma, uncomplicated; F17.210 Nicotine dependence, cigarettes, uncomplicated
CPT/HCPCS: 87086; 99213; G0463

== ENCOUNTER 2025-05-03 08:48 | Emergency (ER) | payer MEDICAID, SELFPAY ==
--- OUTSIDE RECORDS SUMMARY | 2015-01-31 03:00 | XMS_ITS | Continuity of Care Document ---
Author Organization [facility] [place] Address [address] [place] [address] Phone Care Team Providers Care Buffing Machine Tender Name Role Phone Unavailable Unavailable Unavailable Advance Directives Directive Yes / No Effective Date File Name No Information Encounters Encounter Description Practice Location Reason(s) For Visit Diagnoses Date Provider Providers Copied on Encounter [facility], [address], [place], [place], [id number], [place] tel:[phone] [facility] No Information No Information Referring Provider: TALISHA MARTINEZ, [address] [facility] [address], [place], [address]. tel:[phone] Family History Family Member Type Diagnosis Age At Onset No Information Payers Payer name Insurance type Covered republican ID Authoriza kishan(s) [employer] [place] [id number] Social History Type Description Quantity Date Captured Comments Sex Female Smoking Status No Information Chief Complaint And Reason For Visit No Information History Of Present Illness Encounter Date Complaint History Of Prese nt Illness No Information Instructions Date Instruction Additional Infor mation No Information Assessments Type Assessment Date No Information
--- OUTSIDE RECORDS SUMMARY | 2015-01-31 03:00 | XMS_ITS | Continuity of Care Document ---
Author Organization [facility] [place] Address [address] [place] [address] Phone Care Team Providers Care Cord Maker Name Role Phone Unavailable Unavailable Unavailable Advance Directives Directive Yes / No Effective Date File Name No Information Encounters Encounter Description Practice Location Reason(s) For Visit Diagnoses Date Provider Providers Copied on Encounter [facility], [address], [place], [place], [id number], [place] tel:[phone] [facility] No Information No Information Referring Provider: TALISHA MARTINEZ, [address] [facility] [address], [place], [address]. tel:[phone] Family History Family Member Type Diagnosis Age At Onset No Information Payers Payer name Insurance type Covered constitution party ID Authoriza kishan(s) [employer] [place] [id number] Social History Type Description Quantity Date Captured Comments Sex Female Smoking Status No Information Chief Complaint And Reason For Visit No Information History Of Present Illness Encounter Date Complaint History Of Prese nt Illness No Information Instructions Date Instruction Additional Infor mation No Information Assessments Type Assessment Date No Information
[2025-05-03 09:04] VITALS: BP 123/68; PULSE 61; RESP 20; TEMP 37.3; O2SAT 98
[2025-05-03] MEDS: KETOROLAC (*BKC) 60 MG/2 ML VIAL IM (10:11)
--- NOTE | 2025-05-03 10:20 | ED_ITS ---
HPI - URI/Sore Throat General Chief Complaint: Upper Respiratory Infection Stated Complaint: cough/migraine Time Seen by Provider: 05/03/25 09:49 Source: patient and RN notes reviewed Mode of arrival: ambulatory Limitations: no limitations History of Present Illness HPI Narrative: 45-year-old female patient with history of migraines presents today complaining of a one-week history of frontal headache, body aches, nausea, photophobia. Denies sore throat, cough, congestion. She has tried Benadryl, ibuprofen, Tylenol, and rizatriptan without much improvement. Currently rates her discomfort 01/04. Headache is similar to previous migraines. Both of her children are currently sick with similar headache and body aches symptoms. Related Data Home Medications ?Medication ?Instructions ?Recorded ?Confirmed ?Last Taken ?Type duloxetine 30 mg capsule,delayed mg PO 05/03/25 Unkno wn History release methocarbamol 500 mg tablet mg 05/03/25 Unknown Histo ry rizatriptan 10 mg disintegrating mg 05/03/25 Unknown History tablet Allergies Allergy/AdvReac Type Severity Reaction Status Date / Time Penicillins AdvReac Unknown Fever Verified 05/03/25 09:35 [facility] Past Medical History Medical History Marijuana abuse Smoker Fracture, tooth Lumbago GERD (gastroesophageal reflux disease) Migraine Hx of sleep apnea Schizoaffective disorder Bipolar 2 disorder GERD (gastroesophageal reflux disease) Asthma History of bipolar disorder (~05/2019) Encounter for long-term (current) use of other medications Family history of osteoporosis Anxiety Headache, migraine Depression (~05/2019) Allergies Surgical History Surgical History H/O laparoscopy H/O: History of tonsillectomy Family History Family History Mother , motorcycle accident No problems noted. Grandparent , bladder infection No problems noted. Grandparent No problems noted. Grandparent Cerebrovascular accident Social History Social History (Reviewed 05/03/25 @ 10:23 by Abilee L. Mihelcic, MIDWIFE PRACTITIONER, ONCOLOGY PHYSICIAN ASSISTANT) Smoking packs per day: 0.5 Smoking cigarettes per day: 10.0 Years smoked: 15 Smoking pack-years: 7.50 Tobacco type: cigarettes Alcohol intake: current Drinks per week: 2 Substance use: unknown Substance use type: marijuana Lack of Transportation: No Lack of Food: Sometimes True Current Housing: I Have Housing Concerned About Future Housing: YES Difficulty Paying Gas/Electric Bills: YES Difficulty Paying for Meds: YES Currently Unemployed: No Education: High School Diploma/GED Difficulty w/ Childcare or Family Care: YES Living arrangements: with family Gender identity (if verbalized by the patient): Female Spiritual care concerns: No Comments At time of signature, I have reviewed and agree with nursing past medical, surgical, social and family history unless otherwise noted. Please see nursing chart for further information. There is no relevant family history pertinent to the presenting complaint Exam Narrative: GENERAL: Mildly ill-appearing, well-nourished, and in mild pain distress. HEAD: Normocephalic, atraumatic. EYES: EOMI. PERRL. No redness or drainage. Conjunctivae normal. ENT: Mucous membranes pink and moist. Nares clear. No rhinorrhea. TMs normal bilaterally. Throat normal. Uvula midline. NECK: Normal AROM. Supple. No lymphadenopathy. CHEST: No respiratory distress. Clear to auscultation. HEART: Regular rate and rhythm. No murmur appreciated. EXTREMITIES: Normal range of motion. No edema. SKIN: Warm, dry, no rash. Capillary refill normal. Normal skin turgor. NEURO: No focal deficits. Alert and oriented x3. Gait steady. PSYCH: Normal affect. No signs of depression or anxiety. Course Course Level of Care: Express Care Visit Vital Signs Vital signs: Vital Signs Temperature 99.1 F 05/03/25 09:04 Pulse Rate 61 05/03/25 09:04 Respiratory Rate 20 05/03/25 09:04 Blood Pressure 123/68 05/03/25 09:04 Pulse Oximetry 98 05/03/25 09:04 Oxygen Delivery Room Air 05/03/25 09:04 Temperature 99.1 F 05/03/25 09:04 Pulse Rate 61 05/03/25 09:04 Respiratory Rate 20 05/03/25 09:04 Blood Pressure 123/68 05/03/25 09:04 Pulse Oximetry 98 05/03/25 09:04 Oxygen Delivery Room Air 05/03/25 09:04 Reviewed MDM - URI/Sore Throat MDM Narrative Medical decision making narrative: 45-year-old female patient with history of migraines presents today complaining of a one-week history of frontal headache, body aches, nausea, photophobia. Denies sore throat, cough, congestion. She has tried Benadryl, ibuprofen, Tylen ol, and rizatriptan without much improvement. Currently rates her discomfort 01/04. Headache is similar to previous migraines. Both of her children are currently sick with similar headache and body aches symptoms. Exam shows that patient is mildly ill appearing in mild pain distress with her headache. 60 mg IM Toradol injection given for migraine. Symptoms are likely viral, especially given children are sick with similar symptoms. Prescription for Zofran given for nausea so she can not keep orally hydrated. Recommend continuing NSAID or Tylenol. Patient agrees with plan. She has no URI symptoms to suggest that it antibiotics will be helpful. Vital signs stable. Anticipatory guidance given. ED precautions given. Differential Diagnosis Differential diagnosis: Likely upper respiratory infection, viral infection and other (Migraine) Critical Care Time Critical Care Time Critical Care Time: No Discharge Plan Discharge Clinical Impression: Viral syndrome Migraine Qualifiers: Migraine type: unspecified Status migrainosus presence: with status migrainosus Intractability: intractable Qualified Code(s): G43.911 - Migraine, unspecified, intractable, with status migrainosus Patient Disposition: Home Condition: Stable Instructions: Acute Nausea and Vomiting (DC) Additional Instructions: Your symptoms are likely due to a viral illness, which is not treated with antibiotics. Virus symptoms can last for up to 7-10days. Take Tylenol for pain or fever. Take the Zofran for nausea and vomiting. Rest and stay hydrated with water and other electrolyte containing fluids.. Follow up with your PCP in 3-4 days if symptoms are not improving. Go to the ER immediately if you develop shortness of breath, difficulty swallowing, feelings of dehydration, decreased urine output, or any other concerning symptoms. Patient Language: Dominican Prescriptions: New ondansetron 8 mg tablet,disintegrating 8 mg PO Q4-6H PRN (Reason: nausea and vomiting) Qty: 20 0RF No Action methocarbamol 500 mg tablet rizatriptan 10 mg tablet,disintegrating duloxetine 30 mg capsule,delayed release(DR/EC) PO Follow-up/Referrals: Pravin Lucas MD [Primary Care Provider, Family Practice] Time of Disposition: 10:10
--- OUTSIDE RECORDS SUMMARY | 2025-05-03 17:33 | XMS_ITS | Patient Health Record ---
Author Organization [facility] Billing Info Address [address] [place] [address] Care Team Providers Care Brick Picker Name Role Phone NÉSTOR HARDY Unavailable Unavailable [...] Problem Status W/U Status Risk Notes Problem 434136044 Asthma, unspecified, unspecified status (493.90) 5 Active confirmed Problem Leukocytosis (848093451) Elevated white blood cell count, unspecified (D72.829) 9 Active confirmed Problem Hyperlipidemia (92301070) Hyperlipidemia, unspecified (E78.5) 9 Active confirmed Problem Bipolar affective disorder, current episode depression (336969025) Bipolar disorder, current episode depressed, mild or moderate severity, unspecified (F31.30) 9 Active confirmed Problem Generalized anxiety disorder (82222016) Generalized anxiety disorder (F41.1) 9 Active confirmed Problem Body mass index 30+ - obesity (615319469) Body mass index (BMI) 39.0-39.9, adult (Z68.39) 9 Active confirmed Problem Tobacco user (761694684) Tobacco use (Z72.0) 5 Active confirmed Plan Of Treatment No Information Insurance Providers Payer Name Payer Address Payer Phone Subscriber Number Group Number Insured Name Patient Relationship to Insured Coverage Start Date Coverage End Date MEDICARE [place] PART B [address] [place] NULL [id number] Chacha Jean Baptiste Self - patient is the insured 9 [employer] [place]ICAID [place] [address] [place], [place] [id number] Chacha Jean Baptiste Self - patient is the insured Medical (General) History Medical History History ICD Code Bipolar Hospitalizations: No prior hospitalizati ons excluding surgery/delivery. Bipolar Hospitalizations: No prior hospitalizati ons excluding surgery/delivery Surgical History Surgery Date(Month/Year) T&A, T&A 2 c sections c sections
--- OUTSIDE RECORDS SUMMARY | 2025-05-03 17:33 | XMS_ITS | Patient Health Record ---
Author Organization [facility] Address [address] [facility] [address] [place] [address] Care Team Providers Care Auditing Clerk Name Role Phone Lam Gomez Unavailable [phone] Allergies No Known Allergies Reason For Referral [...] Status Risk Notes Problem Bipolar II disorder (38750469) Bipolar II disorder (F31.81) 2 Active confirmed Problem Generalized anxiety disorder (34973928) Generalized anxiety disorder (F41.1) 2 Active confirmed Problem Posttraumatic stress disorder (43494340) Chronic post-traumatic stress disorder (PTSD) (F43.12) Active confirmed Problem Bipolar 1 disorder (358645374) Bipolar 1 disorder (F31.9) Active confirmed Problem Anxiety depression (370310837) 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 [address] [address] [address] 06/29/2024 Lam Gomez Generalized anxiety disorder F41.1 ; Bipolar 1 disorder F31.9 ; Chronic post-traumatic stress disorder (PTSD) F43.12 and Anxious depression F41.8 Assessments Encounter Date Diagnosis (ICD Code) Assessment Notes Treatment Notes Treatment Clinical Notes Section Notes 06/29/2024 Generalized anxiety disorder (ICD-10 - F41.1) [...] issues. [place] [address] with [place] bus access. - Plan: - Recommend switching to [facility] for medication delivery within [place]. - [facility] [...] [place] [facility] with no bus access. - Plan: - Recommend switching to [facility] for medication delivery within [place]. - [facility] [...] [place] [facility] with no bus access. - Plan: - Recommend switching to [facility] for medication delivery within [place]. - Send prescription [facility] qu[facility]apine to [facility]. - Have staff contact the patient to set up a follow-up appointment in 2 months. Coordination of Care - Assessment: Patient's primary care physician, Dr. Pravin Lucas, is cautious about prescribing sleep aids due to potential interactions with psychiatric medications. - Plan: - Maintain open communication with Dr. Lucas to ensure safe and effective treatment for the patient. 06/29/2024 Anxious depression (ICD-10 - F41.8) Insomnia [...] [place] [facility] with no bus access. - Plan: - Recommend switching to [facility] for medication delivery within [place]. - [facility] [...] Medicare [address] [place] [address] [id number] KAYLEE STEPHANIEMOE Self - patient is the insured Medical [...]
--- OUTSIDE RECORDS SUMMARY | 2025-05-03 17:33 | XMS_ITS | Encounter Summary ---
Author Organization [facility] Address [address] [place] [address] Phone Care Team Providers Care Topographical Drafter Name Role Phone Provider, None Primary Care Provider Unavailabl e Reason for Visit * Reason Comments Medication Refill Encounter Details Date Type Department Care Team (Late st Contact Info) Description 11/08/2020 Refill [facility] - [facility] [place] [address] [place] [address] Lyndsey Valverde APRN, FLOOR POLISHER [address] [place] [address] Medication Refill Social History Tobacco Use Types [...] structures documented in this encounter Care Teams Topographical Drafter Relationship Specialty Start Date End Date Provider, None [place] PCP - General 10/02/20 documented as of this encounter
--- OUTSIDE RECORDS SUMMARY | 2025-05-03 17:33 | XMS_ITS | Clinical Summary ---
Author Organization [facility] Address [address] [place] [phone] Phone Care Team Providers Care Cmm Operator Name Role Phone Provider, None Primary Care [...] 19+ 3-dose series) 2000 Pap Smear 2002 Medicare Initial AWV [id number] 04/28/2003 Human Papillomavirus (HPV) Immunization (1 - 3-dose SCDM series) 2008 Cervical Cancer Screening (CCS) 2011 HPV/Cotest 2011 Influenza Immunization (#1) 02/26/202510/2020, 02/23/2013, 03/29/2012 SARS-COV-2 Immunization ( season) 2025 06/17/2021, 11/05/2020, 10/15/2020 Respiratory Syncytial Virus (RSV) [...] complete this topic Insurance MEDICARE Care Teams Cmm Operator Relationship Specialty Start Date End Date Provider, None [place] PCP - General 10/02/20
== END 2025-05-03 10:29 | disposition home or self-care (01) ==
PROVIDERS: Emergency Provider Nurse Practitioner; PCP Family Medicine
DX: B34.9 Viral infection, unspecified (principal); G43.911 Migraine, unspecified, intractable, with status migrainosus; F17.210 Nicotine dependence, cigarettes, uncomplicated; Z79.899 Other long term (current) drug therapy
CPT/HCPCS: 96372; 99213; G0463; J1885